=== PATIENT | female | born 1945 | race Caucasian/White ===

== ENCOUNTER → 2018-01-08 08:03 | Outpatient (CLI) | payer MEDICARE, SELFPAY ==
[2018-01-08 10:53] LABS: Hematocrit 40.5 % (37-47); Hemoglobin 13.1 g/dl (12.0-15.0); Mean Corp Hgb Conc 32.3 g/gl (32-36); Mean Corpuscular Hgb 28.1 pg (27.0-32.0); Mean Corpuscular Volume 86.9 fL (81-99); Mean Platelet Vol. 11.4 fl (6.2-12.0); Platelet Count 264 K/mm3 (150-450); RBC Distribution Width CV 13.6 % (11.6-14.6); RBC Distribution Width SD 43.3 fl (35.1-43.9); Red Blood Count 4.66 M/mm3 (4.2-5.4); White Blood Count 6.2 K/mm3 (4.4-11.0)
[2018-01-08 10:55] LABS: Scan Indicated on CBC? Y/N NO
[2018-01-08 11:08] LABS: Vitamin D,25 Hydroxy 23.1 ng/mL (29.95-100.01)
[2018-01-08 11:09] LABS: AST(SGOT) 21 U/L (15-37); Alanine Aminotransfer ALT/SGPT 25 U/L (13-56); Albumin, Serum 3.6 g/dL (3.2-5.0); Alkaline Phosphatase 83 U/L (45-117); Anion Gap 8 (5-15); BUN 18 mg/dL (7-18); BUN/Creat Ratio 21.3 RATIO (10-20); Calcium,Total 8.8 mg/dL (8.5-10.1); Chloride 101 mmol/L (98-107); Cholesterol 270 mg/dL (200); Creatinine, Serum 0.85 mg/dL (0.55-1.02); EST Glomerular Filtration Rate 70 mL/min (>60); Est Glom Filt Rate - Afr Amer 85 mL/min (>60); Free T3 2.8 pg/mL (2.18-3.98); Globulin 3.7 g/dL (2.2-4.2); Glucose 90 mg/dL (74-106); High Density Lipoprotein 51 mg/dL; Potassium 4.5 mmol/L (3.5-5.1); Protein, Total 7.3 g/dL (6.4-8.2); Sodium Level 136 mmol/L (136-145); T4 Free Direct 1.39 ng/dL (0.76-1.46); Thyroid Stim Hormone (TSH) 1.22 uIU/mL (0.358-3.74); Triglycerides 143 mg/dL; Very Low Density Lipoprotein 29 mg/dL (5-40)
== END ==
PROVIDERS: Family Provider Family Medicine; PCP Family Medicine; Visit Provider Family Medicine
DX: I10 Essential (primary) hypertension (principal); I42.2 Other hypertrophic cardiomyopathy; E03.9 Hypothyroidism, unspecified; E55.9 Vitamin D deficiency, unspecified
CPT/HCPCS: 36415; 80053; 80061; 82306; 84439; 84443; 84481; 85027

== ENCOUNTER → 2018-07-20 08:47 | Outpatient (CLI) | payer MEDICARE, SELFPAY ==
--- NOTE | 2018-07-20 08:51 | BD_ITS ---
STUDY: DUAL ENERGY X-RAY ABSORPTIOMETRY / DXA REASON FOR EXAM: Female, 73 years old. The patient is postmenopausal. Loss of height. TECHNIQUE: Bone Mineral Density (BMD) measurements of lumbar spine and bilateral hips were obtained. COMPARISON: Comparison is made with prior study dated May 28, 2016. FINDINGS: Lumbar Spine (L1-L4): g/cm2 (1.093) / T-score (-0.6) / Z-score (1.1) Findings are suggestive of normal bone density with a low fracture risk. Left Femur Total: g/cm2 (0.894) / T-score (-0.9) / Z-score (0.8) Left Femoral Neck: g/cm2 (0.829) / T-score (-1.5) / Z-score (0.4) Right Femur Total: g/cm2 (0.862) / T-score (-1.2) / Z-score (0.5) Right Femoral Neck: g/cm2 (0.827) / T-score (-1.5) / Z-score (0.4) The T-Scores on the most recent prior examination were: Lumbar Spine (L1-L4): There has been worsening of bone density since the previous examination. Left Femur Total: which represents a worsening of 4.7%. Right Femur Total: which represents a worsening of 5.5%. BD/Dexa Bone Density Study IMPRESSION: The patient is considered osteopenic as outlined below according to World Erik Organization (WHO) criteria with a moderate fracture risk. There has been worsening of bone density since the previous examination. Reference Information: The T-score is the number of standard deviations above or below the standard which is normal for young adults at their peak bone mineral density. The World Health Organization (WHO) interprets the T-scores as follows: Above -1 Normal bone density Between -1 and -2.5 Osteopenia Equal to / or below -2.5 Osteoporosis As a practical clinical guideline, osteopenia may be graded as follows: Mild -1 through -1.5 Moderate -1.6 through -2.0 Severe -2.1 through -2.4 The Z-score is the number of standard deviations above or below age-matched controls. A Z-score of less than -1.5 would be considered abnormal. References: 1. NIH Osteoporosis and Related Bone Diseases http://www.osteo.org 2. International Society for Clinical Densitometry http://www.iscd.org 3. National Osteoporosis Foundation http://www.nof.org Electronically Signed: Klaus Stovall, at 15:36 EDT , Service support ,
== END ==
PROVIDERS: Family Provider Family Medicine; PCP Family Medicine; Referring Provider Nurse Practitioner; Visit Provider Nurse Practitioner
DX: Z78.0 Asymptomatic menopausal state (principal); M85.80 Other specified disorders of bone density and structure, unspecified site
CPT/HCPCS: 77080

== ENCOUNTER → 2018-08-05 09:51 | Outpatient (CLI) | payer MEDICARE, SELFPAY ==
[2018-08-05 12:05] LABS: Absolute Lymphocyte Count 2.49 X10^3/ul (0.83-4.51); Absolute Neutrophil Count 3.2 X10^3/uL (2.0-7.7); Basophil# 0.04 X10^3/uL; Basophil% 0.6 % (0-1); Eosinophil# 0.15 X10^3/uL; Eosinophils% 2.4 % (0-5); Hematocrit 39.4 % (37-47); Lymphocyte # 2.49 X10^3/ul (4.0); Lymphocyte % 39.2 % (19-41); Mean Corpuscular Hgb 28.1 pg (27.0-32.0); Mean Corpuscular Volume 85.1 fL (81-99); Mean Platelet Vol. 10.7 fl (6.2-12.0); Monocyte# 0.47 X10^3/uL; Monocyte% 7.4 % (0-10); Neutrophil # 3.19 X10^3/uL (2.7-7.7); Neutrophil % 50.1 % (47-70); Platelet Count 298 K/mm3 (150-450); RBC Distribution Width CV 13.8 % (11.6-14.6); RBC Distribution Width SD 42.9 fl (35.1-43.9); Red Blood Count 4.63 M/mm3 (4.2-5.4); White Blood Count 6.4 K/mm3 (4.4-11.0)
[2018-08-05 12:07] LABS: POSITIVE COUNT NO; POSITIVE DIFFERENTIAL NO; POSITIVE MORPHOLOGY NO
[2018-08-05 12:43] LABS: PTHIN 31.4 pg/mL (18.4-80.1); Vitamin B12 787 pg/mL (211-911); Vitamin D,25 Hydroxy 33.2 ng/mL (29.95-100.01)
[2018-08-05 12:56] LABS: Anion Gap 7 (5-15); BUN 17 mg/dL (7-18); BUN/Creat Ratio 18.2 RATIO (10-20); Calcium,Total 8.9 mg/dL (8.5-10.1); Chloride 101 mmol/L (98-107); Creatinine, Serum 0.93 mg/dL (0.55-1.02); EST Glomerular Filtration Rate 62 mL/min (>60); Est Glom Filt Rate - Afr Amer 75 mL/min (>60); Free T3 2.7 pg/mL (2.18-3.98); Glucose 83 mg/dL (74-106); Iron 101 ug/dL (50-170); Magnesium 2.3 mg/dL (1.6-2.6); Potassium 4.3 mmol/L (3.5-5.1); Sodium Level 135 mmol/L (136-145); T4 Free Direct 1.47 ng/dL (0.76-1.46); Thyroid Stim Hormone (TSH) 1.26 uIU/mL (0.358-3.74)
== END ==
PROVIDERS: Family Provider Family Medicine; PCP Family Medicine; Referring Provider Family Medicine; Visit Provider Family Medicine
DX: E03.9 Hypothyroidism, unspecified (principal); M85.80 Other specified disorders of bone density and structure, unspecified site; L60.3 Nail dystrophy
CPT/HCPCS: 36415; 80048; 82306; 82330; 82607; 83540; 83735; 83970; 84100; 84439; 84443; 84481; 85025

== ENCOUNTER → 2019-03-31 08:06 | Outpatient (CLI) | payer MEDICARE, SELFPAY ==
[2019-03-31 10:01] LABS: Absolute Lymphocyte Count 3.28 X10^3/uL (0.83-4.51); Absolute Neutrophil Count 3.8 X10^3/uL (2.0-7.7); Basophil# 0.05 X10^3/uL; Basophil% 0.6 % (0-1); Eosinophil# 0.12 X10^3/uL; Eosinophils% 1.5 % (0-5); Hemoglobin 12.5 g/dL (12.0-15.0); Lymphocyte # 3.28 X10^3/ul (4.0); Lymphocyte % 41.7 % (19-41); Mean Corp Hgb Conc 32.1 g/dL (32-36); Mean Corpuscular Hgb 27.8 pg (27.0-32.0); Mean Corpuscular Volume 86.9 fL (81-99); Mean Platelet Vol. 10.8 fl (6.2-12.0); Monocyte% 7.6 % (0-10); NRBC Flagged by Analyzer 0 % (0-5); Neutrophil # 3.76 X10^3/uL (2.7-7.7); Platelet Count 326 K/mm3 (150-450); RBC Distribution Width CV 12.9 % (11.6-14.6); RBC Distribution Width SD 40.7 fl (35.1-43.9); Red Blood Count 4.49 M/mm3 (4.2-5.4); White Blood Count 7.9 K/mm3 (4.4-11.0)
[2019-03-31 10:23] LABS: Vitamin D,25 Hydroxy 33.8 ng/mL (29.95-100.01)
[2019-03-31 10:27] LABS: Anion Gap 5 (5-15); BUN 17 mg/dL (7-18); BUN/Creat Ratio 16.8 RATIO (10-20); Calcium,Total 9.1 mg/dL (8.5-10.1); Chloride 102 mmol/L (98-107); Cholesterol 204 mg/dL (200); Creatinine, Serum 1.01 mg/dL (0.55-1.02); EST Glomerular Filtration Rate 57 mL/min (>60); Est Glom Filt Rate - Afr Amer 69 mL/min (>60); Glucose 89 mg/dL (74-106); High Density Lipoprotein 46 mg/dL; Potassium 4.4 mmol/L (3.5-5.1); Sodium Level 134 mmol/L (136-145); T4 Free Direct 1.28 ng/dL (0.76-1.46); Thyroid Stim Hormone (TSH) 2.25 uIU/mL (0.358-3.74); Triglycerides 142 mg/dL; Very Low Density Lipoprotein 28 mg/dL (5-40)
== END ==
PROVIDERS: Family Provider Family Medicine; PCP Family Medicine; Referring Provider Family Medicine; Visit Provider Family Medicine
DX: C50.911 Malignant neoplasm of unspecified site of right female breast (principal); I10 Essential (primary) hypertension; E03.9 Hypothyroidism, unspecified; E55.9 Vitamin D deficiency, unspecified
CPT/HCPCS: 36415; 80048; 80061; 82306; 84439; 84443; 85025

== ENCOUNTER → 2020-03-30 07:57 | Outpatient (CLI) | payer MEDICARE, SELFPAY ==
[2020-03-30 10:05] LABS: Hematocrit 40.4 % (37-47); Hemoglobin 12.7 g/dL (12.0-15.0); Mean Corp Hgb Conc 31.4 g/dL (32-36); Mean Corpuscular Hgb 27.9 pg (27.0-32.0); Mean Corpuscular Volume 88.6 fL (81-99); Mean Platelet Vol. 11.4 fl (6.2-12.0); Platelet Count 264 K/mm3 (150-450); RBC Distribution Width CV 13.2 % (11.6-14.6); RBC Distribution Width SD 43.2 fl (35.1-43.9); Red Blood Count 4.56 M/mm3 (4.2-5.4)
[2020-03-30 10:35] LABS: Anion Gap 3 (5-15); BUN 15 mg/dL (7-18); BUN/Creat Ratio 15.8 RATIO (10-20); Calcium,Total 8.7 mg/dL (8.5-10.1); Chloride 106 mmol/L (98-107); Cholesterol 210 mg/dL (200); Creatinine, Serum 0.95 mg/dL (0.55-1.02); EST Glomerular Filtration Rate 61 mL/min (>60); Est Glom Filt Rate - Afr Amer 74 mL/min (>60); Glucose 86 mg/dL (74-106); High Density Lipoprotein 49 mg/dL; Potassium 4.6 mmol/L (3.5-5.1); Sodium Level 138 mmol/L (136-145); T4 Free Direct 1.26 ng/dL (0.76-1.46); Thyroid Stim Hormone (TSH) 1.76 uIU/mL (0.358-3.74); Triglycerides 153 mg/dL; Very Low Density Lipoprotein 31 mg/dL (5-40)
== END ==
PROVIDERS: PCP Family Medicine; Referring Provider Family Medicine; Visit Provider Family Medicine
DX: C50.911 Malignant neoplasm of unspecified site of right female breast (principal); I10 Essential (primary) hypertension; E03.9 Hypothyroidism, unspecified; E55.9 Vitamin D deficiency, unspecified
CPT/HCPCS: 36415; 80048; 80061; 82306; 84439; 84443; 85027

== ENCOUNTER → 2021-01-04 09:26 | Outpatient (CLI) | payer MEDICARE, SELFPAY ==
[2021-01-04 12:19] LABS: Vitamin D,25 Hydroxy 29.4 ng/mL
== END ==
PROVIDERS: PCP Family Medicine; Referring Provider Family Medicine; Visit Provider Family Medicine
DX: E55.9 Vitamin D deficiency, unspecified (principal)
CPT/HCPCS: 36415; 82306

== ENCOUNTER → 2021-01-24 12:21 | Outpatient (CLI) | payer MEDICARE, SELFPAY ==
--- NOTE | 2021-01-24 12:28 | BD_ITS ---
STUDY: DUAL ENERGY X-RAY ABSORPTIOMETRY / DXA REASON FOR EXAM: Female, 75 years old. [id number]. Patient is postmenopausal. TECHNIQUE: Bone Mineral Density (BMD) measurements of lumbar spine and bilateral hips were obtained. COMPARISON: Comparison is made with prior study dated 07/20/2018. FINDINGS: Lumbar Spine (L1-L4): g/cm2 (0.993) / T-score (-0.5) / Z-score (2.0) Findings are suggestive of normal bone density with a low fracture risk. Left Femur Total: g/cm2 (0.818) / T-score (-1.0) / Z-score (0.9) Left Femoral Neck: g/cm2 (0.678) / T-score (-1.5) / Z-score (0.6) Right Femur Total: g/cm2 (0.73) / T-score (-1.3) / Z-score (0.6) Right Femoral Neck: g/cm2 (0.663) / T-score (-1.7) / Z-score (0.5) The T-Scores on the most recent prior examination were: Lumbar Spine (L1-L4): There has been worsening of bone density since the previous examination. Left Femur Total: which represents a worsening of 1.5%. Right Femur Total: which represents a worsening of 2.1%. BD/Dexa Bone Density Study IMPRESSION: The patient is considered osteopenic as outlined below according to World Erik Organization (WHO) criteria with a moderate fracture risk. There has been worsening of bone density since the previous examination. Reference Information: The T-score is the number of standard deviations above or below the standard which is normal for young adults at their peak bone mineral density. The World Health Organization (WHO) interprets the T-scores as follows: Above -1 Normal bone density Between -1 and -2.5 Osteopenia Equal to / or below -2.5 Osteoporosis As a practical clinical guideline, osteopenia may be graded as follows: Mild -1 through -1.5 Moderate -1.6 through -2.0 Severe -2.1 through -2.4 The Z-score is the number of standard deviations above or below age-matched controls. A Z-score of less than -1.5 would be considered abnormal. References: 1. NIH Osteoporosis and Related Bone Diseases www osteo.org 2. International Society for Clinical Densitometry www iscd.org 3. National Osteoporosis Foundation www nof.org Electronically Signed: Klaus Stovall MD at 14:04 EDT , Service support ,
== END ==
PROVIDERS: PCP Family Medicine; Visit Provider Nurse Practitioner
DX: Z78.0 Asymptomatic menopausal state (principal); M85.80 Other specified disorders of bone density and structure, unspecified site; C50.412 Malignant neoplasm of upper-outer quadrant of left female breast; Z17.0 Estrogen receptor positive status [ER+]; Z79.811 Long term (current) use of aromatase inhibitors
CPT/HCPCS: 77080

== ENCOUNTER → 2022-04-10 | Outpatient (CLI) | payer MEDICARE, SELFPAY ==
[2022-04-10 10:53] LABS: ALB/GLOB Ratio 1.3 RATIO (0.9-2.4); AST(SGOT) 23 U/L (15-37); Alanine Aminotransfer ALT/SGPT 34 U/L (13-56); Albumin, Serum 3.8 g/dL (3.2-5.0); Alkaline Phosphatase 67 U/L (45-117); Anion Gap 5 (5-15); BUN 17 mg/dL (7-18); BUN/Creat Ratio 18.9 RATIO (10-20); Calcium,Total 9.1 mg/dL (8.5-10.1); Chloride 102 mmol/L (98-107); Cholesterol 296 mg/dL (200); EST Glomerular Filtration Rate 65 mL/min (>60); Est Glom Filt Rate - Afr Amer 78 mL/min (>60); Glucose 86 mg/dL (74-106); High Density Lipoprotein 57 mg/dL; Potassium 4.9 mmol/L (3.5-5.1); Protein, Total 6.8 g/dL (6.4-8.2); Sodium Level 135 mmol/L (136-145); T4 Free Direct 1.23 ng/dL (0.76-1.46); Thyroid Stim Hormone (TSH) 1.43 uIU/mL (0.358-3.74); Triglycerides 160 mg/dL; Very Low Density Lipoprotein 32 mg/dL (5-40)
== END | disposition home or self-care (01) ==
LOC: MFPLAB 08:06
PROVIDERS: PCP Family Medicine; Visit Provider Family Medicine
DX: I10 Essential (primary) hypertension (principal); E03.9 Hypothyroidism, unspecified
CPT/HCPCS: 36415; 80053; 80061; 84439; 84443

== ENCOUNTER → 2023-01-27 | Outpatient (CLI) | payer MEDICARE, SELFPAY ==
--- NOTE | 2023-01-27 12:58 | BD_ITS ---
STUDY: DUAL ENERGY X-RAY ABSORPTIOMETRY / DXA REASON FOR EXAM: Female, 77 years old. M85.89 TECHNIQUE: Bone Mineral Density (BMD) measurements of lumbar spine and bilateral hips were obtained. COMPARISON: Comparison is made with prior study dated January 24, 2021. FINDINGS: Lumbar Spine (L1-L4): g/cm2 (1.013) / T-score (-0.3) / Z-score (2.3) Findings are suggestive of normal bone density with a low fracture risk. Left Femur Total: g/cm2 (0.850) / T-score (-0.8) / Z-score (1.2) Left Femoral Neck: g/cm2 (0.692) / T-score (-1.4) / Z-score (0.8) Right Femur Total: g/cm2 (0.830) / T-score (-0.9) / Z-score (1.1) Right Femoral Neck: g/cm2 (0.697) / T-score (-1.4) / Z-score (0.9) The T-Scores on the most recent prior examination were: Lumbar Spine (L1-L4): There has been improvement of bone density since the previous examination. Left Femur Total: which represents an improvement of 4%. Right Femur Total: which represents an improvement of 6.1%. BD/Dexa Bone Density Study IMPRESSION: The patient is considered osteopenic as outlined below according to World Erik Organization (WHO) criteria with a low fracture risk. There has been improvement of bone density since the previous examination. Reference Information: The T-score is the number of standard deviations above or below the standard which is normal for young adults at their peak bone mineral density. The World Health Organization (WHO) interprets the T-scores as follows: Above -1 Normal bone density Between -1 and -2.5 Osteopenia Equal to / or below -2.5 Osteoporosis As a practical clinical guideline, osteopenia may be graded as follows: Mild -1 through -1.5 Moderate -1.6 through -2.0 Severe -2.1 through -2.4 The Z-score is the number of standard deviations above or below age-matched controls. A Z-score of less than -1.5 would be considered abnormal. References: 1. NIH Osteoporosis and Related Bone Diseases www osteo.org 2. International Society for Clinical Densitometry www iscd.org 3. National Osteoporosis Foundation www nof.org Electronically Signed: Klaus Stovall MD at 12:57 EST ,
== END | disposition home or self-care (01) ==
LOC: OPBD 12:53
PROVIDERS: PCP Family Medicine; Referring Provider Family Medicine; Visit Provider Family Medicine
DX: M85.89 Other specified disorders of bone density and structure, multiple sites (principal)
CPT/HCPCS: 77080

== ENCOUNTER → 2023-04-15 | Outpatient (CLI) | payer MEDICARE, SELFPAY ==
--- OUTSIDE RECORDS SUMMARY | 2023-04-15 08:20 | XMS RPT_ITS | CCD ---
Author Name Unknown Address [address] [place] [address] Organization [facility] Care Team Providers Care Rayon Coner Name Role Phone Mike Reynolds MD Primary Care Provider Manfred RN, Michelle Unavailable Unavailable Christian Coon MD Unavailable Mike Reynolds MD Primary Care Provider Manfred RN, Michelle Unavailable Unavailable Christian Coon MD Unavailable [phone] Self Unavailable Unavailable REDD COONIND Y Referring Unavailable MIKE REYNOLDS Primary Care Unavailabl ANDREA Argueta Attending Unavailable ANDREA SALAS Referring Unavailable MIKE REYNOLDS Primary Care UnavailANDREA Sim Referring Unavailable MIKE REYNOLDS Primary Care Unavailabl e EDU VALDOVINOS Referring Unavailable MIKE REYNOLDS Primary Care Unavailabl EDU Luevano Attending Unavailable MIKE REYNOLDS Primary Care Unavailabl e REDD COONIND Y Attending Unavailable REDD COONIND Y Referring Unavailable MIKE REYNOLDS Primary Care Unavailabl REDD SellersIND Y Referring Unavailable MIKE REYNOLDS Primary Care Unavailabl e Allergies Allergy Classification Reported Allergen(s) Allergy Type Date of Onset Reaction(s) Facility (17 sources) anastrozole; Translations: [ANASTROZOLE] Drug Allergy 8 Other: See Comments [facility] Work Phone: (17 sources) Azithromycin; Translations: [AZITHROMYCIN] Drug Allergy 6 Intolerance [facility] (17 sources) Bacitracin / Polymyxin B; Translations: [BACITRACIN-POLY MYXIN B] Drug Allergy 8 Rash [facility] (7 sources) HMG-CoA reductase inhibitor; Translations: [IQSCLYE-DHR-IYS REDUCTASE INHIBITORS] Drug Intolerance 7 Other: See Comments [facility] (17 sources) nickel; Translations: [NICKEL] Drug Allergy 0 Intolerance [facility] (7 sources) Penicillins; Translations: [PENICILLINS] Drug Allergy 6 Hives [facility] (17 sources) Pravastatin; Translations: [PRAVASTATIN] Drug Allergy 7 Other: See Comments [facility] (17 sources) Sulfonamides (Antibiotic); Translations: [SULFA (SULFONAMIDE ANTIBIOTICS)] Drug Intolerance 6 GI Upset [facility] (10 sources) HMG-CoA reductase inhibitor Drug Intolerance 7 Other: See Comments [facility] (10 sources) Penicillins Drug Allergy 6 [facility] Medications Current Medications Medication Drug Class(es) Dates Sig (Normalized) Sig (Original) perflutren lipid microspheres 1.3 mL in NaCl (PF) 0.9% 10 mL injection (DEFINITY) (20 sources) Start: 06-09-2022 End: 09-08-2023 perflutren lipid microspheres 1.3 mL in NaCl (PF) 0.9% 10 mL injection (DEFINITY) Completed/Discontinued Medications Medication Drug Class(es) Dates Sig (Normalized) Sig (Original) acyclovir 400 mg oral tablet (13 sources) Herpesvirus Nucleoside Analog DNA Polymerase Inhibitor, Herpes Simplex Virus Nucleoside Analog DNA Polymerase Inhibitor, Herpes Zoster Virus Nucleoside Analog DNA Polymerase Inhibitor Start: 07-23-2016 End: 11-28-2022 take 1 tablet by mouth every twelve hours as needed acyclovir (ZOVIRAX) 400 mg tablet Take 400 mg by mouth twice daily as needed. 0 07/23/2016 11/28/2022 Discontinued (Course of therapy completed) Problems Active Problems Problem Classification Problem Date Documented Date Episodic/Chronic Cancer of breast (20 sources) Malignant neoplasm of upper-outer quadrant of female breast; Translations: [Malignant neoplasm of upper-outer quadrant of left female breast] Onset: 07-01-2016 07-01-2016 Chronic Cancer of breast (2 sources) History of malignant neoplasm of breast; Translations: [Personal history of malignant neoplasm of breast] Episodic Other inflammatory condition of skin (16 sources) Rosacea; Translations: [Rosacea, unspecified] Onset: 12-03-2012 12-03-2012 Chronic Other screening for suspected conditions (not mental disorders or infectious disease) (20 sources) Patient encounter status; Translations: [Encounter for screening for malignant neoplasm of colon] Onset: 03-26-2009 03-26-2009 Episodic Urmila-; endo-; and myocarditis; cardiomyopathy (except that caused by tuberculosis or sexually transmitted disease) (20 sources) Hypertrophic obstructive cardiomyopathy; Translations: [Obstructive hypertrophic cardiomyopathy] Onset: 07-10-2016 07-10-2016 Chronic Residual codes; unclassified (1 source) Breast implant status; Translations: [Breast implant status] Onset: 01-06-2023 Chronic Residual codes; unclassified (1 source) Breast finding ; Translations: [Breast implant status] 01-06-2023 Chronic Residual codes; unclassified (2 sources) History of breast reconstruction; Translations: [Other specified postprocedural states] Episodic Residual codes; unclassified (1 source) Other specified postprocedural states; Translations: [Hx of breast reconstruction] Onset: 01-06-2023 Episodic Residual codes; unclassified (1 source) Acquired absence of left breast and nipple; Translations: [History of mastectomy, left] Onset: 01-06-2023 Episodic Residual codes; unclassified (1 source) History of left mastectomy; Translations: [Acquired absence of left breast and nipple] 01-06-2023 Episodic Thyroid disorders (16 sources) Hypothyroidism; Translations: [Hypothyroidism, unspecified] Onset: 08-19-2018 08-19-2018 Chronic Past or Other Problems Problem Classification Problem Date Documented Da te Episodic/Chronic Allergic reactions (16 sources) Solar degeneration; Translations: [Other skin changes due to chronic exposure to nonionizing radiation] Onset: 12-03-2012 12-03-2012 Episodic Other and unspecified benign neoplasm (20 sources) Melanocytic nevus of lower limb; Translations: [Melanocytic nevi of unspecified lower limb, including hip] Onset: 10-19-2010 10-19-2010 Episodic Other and unspecified benign neoplasm (20 sources) Melanocytic nevus of trunk; Translations: [Melanocytic nevi of trunk] Onset: 10-19-2010 10-19-2010 Episodic Other and unspecified benign neoplasm (16 sources) Senile angioma; Translations: [Hemangioma of skin and subcutaneous tissue] Onset: 10-19-2010 10-19-2010 Episodic Other and unspecified benign neoplasm (16 sources) Melanocytic nevus of face; Translations: [Melanocytic nevi of unspecified part of face] Onset: 12-03-2012 12-03-2012 Episodic Other and unspecified benign neoplasm (16 sources) Melanocytic nevus of neck; Translations: [Melanocytic nevi of scalp and neck] Onset: 12-03-2012 12-03-2012 Episodic Other bone disease and musculoskeletal deformities (16 sources) Osteopenia; Translations: [Other specified disorders of bone density and structure, unspecified site] Onset: 08-19-2018 08-19-2018 Episodic Other skin disorders (16 sources) Actinic keratosis; Translations: [Actinic keratosis] Onset: 06-23-2007 11-20-2009 Episodic Other skin disorders (16 sources) Milia; Translations: [Epidermal cyst] Onset: 11-20-2009 11-20-2009 Episodic Other skin disorders (16 sources) Epidermoid cyst of skin; Translations: [Epidermal cyst] Onset: 05-16-2010 05-16-2010 Episodic Other skin disorders (16 sources) Scar conditions and fibrosis of skin; Translations: [Scar conditions and fibrosis of skin] Onset: 05-16-2010 05-16-2010 Episodic Other skin disorders (16 sources) Solar lentigo; Translations: [Other melanin hyperpigmentation] Onset: 12-03-2012 12-03-2012 Episodic Other skin disorders (16 sources) Seborrheic keratosis; Translations: [Other seborrheic keratosis] Onset: 12-03-2012 11-02-2013 Episodic Residual codes; unclassified (1 source) Estrogen receptor positive status [ER+]; Translations: [Malignant neoplasm of upper-outer quadrant of left breast in female, estrogen receptor positive (HCC)] Onset: 11-13-2016 Episodic Superficial injury; contusion (16 sources) Superficial injury of lower limb; Translations: [Superficial foreign body, unspecified lower leg, initial encounter] Onset: 05-16-2010 05-16-2010 Episodic Viral infection (16 sources) Herpes simplex; Translations: [Herpesviral infection, unspecified] Onset: 07-15-2016 07-15-2016 Episodic Results Test Name Value Interpretation Reference Range Facil ity Vital Signs Date Time Vital Sign Value Performing Clinician Eduardo lewis 08-25-2022 13:24-0400 Body height 152.4 cm Andrea Salas [employer].DR[employer] TEACHER Work Phone: [facility] 08-25-2022 13:24-0400 Body temperature 97.11 [degF] Bethany Salas [employer].DR[employer] TEACHER Work Phone: [facility] 08-25-2022 13:24-0400 Body weight 62.6 kg Bethany Salas [employer].DR[employer] TEACHER Work Phone: [facility] 08-25-2022 13:24-0400 Diastolic blood pressure 100 mm[Hg] Andrea Salas [employer] B[employer]ER.DRAMA TEACHER Work Phone: [facility] 08-25-2022 13:24-0400 Heart rate 90 /min Bethany Salas [employer].DRAMA TEACHER Work Phone: [facility] 08-25-2022 13:24-0400 SaO2% (BldA) [Mass fraction] 96 % Bethany Salas [employer].DRAMA TEACHER Work Phone: [facility] 08-25-2022 13:24-0400 Systolic blood pressure 141 mm[Hg] Bethany Salas K[employer] B[employer]ER.DRAMA TEACHER Work Phone: [facility] 12-12-2021 11:14-0400 Body height 151 cm Andrea Salas K[employer] B[employer]ER.DRAMA TEACHER Work Phone: [facility] 12-12-2021 11:14-0400 Body temperature 97 [degF] Bethany Salas K[employer] B[employer]ER.DRAMA TEACHER Work Phone: [facility] 12-12-2021 11:14-0400 Body weight 62.14 kg Andrea Salas K[employer] B[employer]ER.DRAMA TEACHER Work Phone: [facility] 12-12-2021 11:14-0400 Diastolic blood pressure 92 mm[Hg] Andrea Salas K[employer] B[employer]ER.DRAMA TEACHER Work Phone: [facility] 12-12-2021 11:14-0400 Heart rate 62 /min Bethany Salas K[employer] B[employer]ER.DRAMA TEACHER Work Phone: [facility] 12-12-2021 11:14-0400 Systolic blood pressure 140 mm[Hg] Andrea Salas K[employer] B[employer]ER.DRAMA TEACHER Work Phone: [facility] 11-04-2021 15:58-0400 Body height 152.4 cm Christian Coon MD Work Phone: [facility] 11-04-2021 15:58-0400 Body weight 58.79 kg Christian Coon MD Work Phone: [facility] 11-04-2021 15:58-0400 Diastolic blood pressure 80 mm[Hg] Christian Coon MD Work Phone: [facility] 11-04-2021 15:58-0400 Heart rate 61 /min Christian Coon MD Work Phone: [facility] 11-04-2021 15:58-0400 SaO2% (BldA) [Mass fraction] 97 % Christian Coon MD Work Phone: [facility] 11-04-2021 15:58-0400 Systolic blood pressure 168 mm[Hg] Christian Coon MD Work Phone: [facility] 06-13-2021 14:29-0400 Diastolic blood pressure 90 mm[Hg] Andrea Salas K[employer] B[employer]ER.DRAMA TEACHER Work Phone: [facility] 06-13-2021 14:29-0400 Systolic blood pressure 188 mm[Hg] Andrea Salas K[employer] B[employer]ER.DRAMA TEACHER Work Phone: [facility] 06-13-2021 13:46-0400 Body height 151.5 cm Bethany Salas K[employer] B[employer]ER.DRAMA TEACHER Work Phone: [facility] 06-13-2021 13:46-0400 Body temperature 99.39 [degF] Andrea Salas K[employer] B[employer]ER.DRAMA TEACHER Work Phone: [facility] 06-13-2021 13:46-0400 Body weight 62.14 kg Bethany Salas K[employer] B[employer]ER.DRAMA TEACHER Work Phone: [facility] 06-13-2021 13:46-0400 Heart rate 69 /min Andrea Salas K[employer] B[employer]ER.DRAMA TEACHER Work Phone: [facility] 06-13-2021 13:46-0400 SaO2% (BldA) [Mass fraction] 100 % Andrea Salas APRN.DRAMA TEACHER Work Phone: [facility] Encounters Encounter Date Encounter Type Care Provider Facility Start: 01-06-2023 End: 01-06-2023 ambulatory EDU VALDOVINOS [facility] Start: 01-06-2023 End: 01-06-2023 Subsequent hospital visit by physician [facility] Work Phone: Radiology Procedures Date Procedure Procedure Detail Performing Clinician Start: 01-06-2023 Us breast uni real t juan with image limited Edu Valdovinos MD Work Phone: Start: 08-21-2022 Screening digital br east tomosynthesis bi Andrea Salas K[employer].DRAMA TEACHER Work Phone: Start: 11-04-2021 Echo tthrc r-t 2d w/wom-mode compl spec&colr d Christian Coon MD Work Phone: Start: 08-15-2021 FRENCH SCREENING W VASHTI Da emani Salas [employer].DRAMA TEACHER Work Phone: Start: 06-25-2021 Colonoscopy Christian turner MD Work Phone: Start: 12-13-2020 Adult depression scr eening assessment Abdelrahman Pizano MD Work Phone: Plan of Treatment Date Care Activity Detail Author Start: 06-26-2031 Colonoscopy COLONOSCOPY [facility] Start: 06-26-2031 COLORECTAL CANCER SCREENING COLORECTAL CANCER SCREENING [facility] Start: 04-15-2031 Urine microalbumin profile [facility] Start: 11-21-2022 Covid-19 Vaccine ( season) Covid-19 Vaccine ( season) [facility] Start: 11-21-2022 Influenza vaccination Influenza Vaccine (#1) [facility] Start: 05-17-2022 Covid-19 Vaccine (6 - Moderna series) Covid-19 Vaccine (6 - Moderna series) [facility] Start: 03-23-2022 ADVANCE DIRECTIVE DISCUSSION ADVANCE DIRECTIVE DISCUSSION [facility] Start: 03-23-2022 DEPRESSION ASSESSMENT DEPRESSION ASSESSMENT [facility] Start: 12-13-2021 Adult depression screening assessment DEPRESSION SCREENING [facility] Start: 11-21-2021 Influenza vaccination INFLUENZA (#1) [facility] Start: 03-23-2021 ADVANCE DIRECTIVE DISCUSSION ADVANCE DIRECTIVE DISCUSSION [facility] Start: 03-08-2021 COVID-19 VACCINE (5 - Booster for Moderna series) COVID-19 VACCINE (5 - Booster for Moderna series) [facility] Start: 11-21-2020 Influenza vaccination INFLUENZA (#1) [facility] Start: 10-14-2020 COVID-19 VACCINE (3 - Booster for Moderna series) COVID-19 VACCINE (3 - Booster for Moderna series) [facility] Start: 07-18-2019 DIABETES SCREEN DIABETES SCREEN [facility] Start: 07-18-2019 Diabetes Screening Diabetes Screening [facility] Start: 03-08-2016 PNEUMOCOCCAL: 65+ (3 - PPSV23 or PCV20) PNEUMOCOCCAL: 65+ (3 - PPSV23 or PCV20) [facility] Start: 08-27-2010 SHINGRIX VACCINE (2 of 3) SHINGRIX VACCINE (2 of 3) [facility] Start: 02-07-2009 BONE DENSITY BONE DENSITY [facility] Start: 02-07-2009 Bone Density Screening Bone Density Screening [facility] Start: 2004 RSV Vaccine (1 - 1-dose 60+ series) RSV Vaccine (1 - 1-dose 60+ series) [facility] Start: 02-07-1989 COLOGUARD (FIT-DNA) COLOGUARD (FIT-DNA) [facility] Start: 02-07-[address] COLONOGRAPHY [facility] Start: 02-07-1989 FECAL OCCULT BLOOD FECAL OCCULT BLOOD [facility] Start: 02-07-1989 SIGMOIDOSCOPY SIGMOIDOSCOPY [facility] Start: 02-07-1963 Urine microalbumin profile DTAP,TDAP,TD (1 - Tdap) [facility] Start: 02-07-1962 ANNUAL PCP TEAM CHRONIC DISEASE VISIT ANNUAL PCP TEAM CHRONIC DISEASE VISIT [facility] Start: 02-07-1962 HEPATITIS C SCREENING HEPATITIS C SCREENING [facility] End: 07-10-2022 ECG COMPLETE ECG COMPLETE ECG Routine HOCM (hypertrophic obstructive cardiomyopathy) (HCC) 1 Occurrences starting 07/10/2021 until 07/10/2022 [facility] Work Phone: Immunizations Immunization Date Immunization Notes Care Provider Miguel montoya 12-11-2021 influenza virus vacc ine, unspecified formulation Edu Valdovinos MD Work Phone: [facility] 04-15-2021 tetanus toxoid, redu kaia diphtheria toxoid, and acellular pertussis vaccine, adsorbed Andrea Salas K[employer] B[employer]ER.DRAMA TEACHER Work Phone: [facility] 12-21-2020 COVID-19 vaccine, fu ll dose (MODERNA) Bethany Salas K[employer] B[employer]ER.DRAMA TEACHER Work Phone: [facility] 12-21-2020 influenza, injectabl e, quadrivalent, preservative free Bethany Salas K[employer] B[employer]ER.DRAMA TEACHER Work Phone: [facility] 05-17-2020 COVID-19 vaccine, fu ll dose (MODERNA) Abdelrahman Pizano MD Work Phone: [facility] 04-19-2020 COVID-19 vaccine, fu ll dose (MODERNA) Abdelrahman Pizano MD Work Phone: [facility] 12-16-2019 influenza, injectabl e, quadrivalent, preservative free Bethany Salas K[employer] BORER.DRAMA TEACHER Work Phone: [facility] 04-12-2019 zoster vaccine recombinant Andrea Salas K[employer] B[employer]ER.DRAMA TEACHER Work Phone: [facility] 02-04-2019 zoster vaccine recombinant Bethany Salas K[employer] B[employer]ER.DRAMA TEACHER Work Phone: [facility] 12-20-2018 influenza, seasonal, injectable Bethany Salas K[employer] BORER.DRAMA TEACHER Work Phone: [facility] 12-15-2017 influenza, injectabl e, quadrivalent, contains preservative Bethany Salas K[employer] BORER.DRAMA TEACHER Work Phone: [facility] 12-19-2016 influenza, injectabl e, quadrivalent, contains preservative Andrea Salas K[employer] BORER.DRAMA TEACHER Work Phone: [facility] 01-18-2016 influenza, injectabl e, quadrivalent, contains preservative Bethany Salas K[employer] BORER.DRAMA TEACHER Work Phone: [facility] 03-08-2015 pneumococcal conjuga te vaccine, 13 valent Andrea Salas K[employer] BORER.DRAMA TEACHER Work Phone: [facility] 01-22-2015 influenza, seasonal, injectable Bethany Salas K[employer] BORER.DRAMA TEACHER Work Phone: [facility] 01-24-2014 influenza, seasonal, injectable Bethany Salas KNOT BORER.DRAMA TEACHER Work Phone: [facility] 01-13-2013 influenza, high dose seasonal, preservative-free Bethany Salas KNOT BORER.DRAMA TEACHER Work Phone: [facility] 01-13-2013 influenza, seasonal, injectable Bethany Salas KNOT BORER.DRAMA TEACHER Work Phone: [facility] 12-12-2011 influenza, seasonal, injectable Bethany Salas KNOT BORER.DRAMA TEACHER Work Phone: [facility] 02-20-2011 tetanus toxoid, redu kaia diphtheria toxoid, and acellular pertussis vaccine, adsorbed Andrea Salas KNOT BORER.DRAMA TEACHER Work Phone: [facility] 01-30-2011 influenza, seasonal, injectable Andrea Salas KNOT BORER.DRAMA TEACHER Work Phone: [facility] 07-02-2010 zoster vaccine, live Abdelrahman Pizano MD Work Phone: [facility] 02-19-2010 pneumococcal polysaccharide vaccine, 23 valent Abdelrahman Pizano MD Work Phone: [facility] 01-03-2010 influenza, seasonal, injectable Andrea Salas KNOT BORER.DRAMA TEACHER Work Phone: [facility] 12-15-2008 influenza, seasonal, injectable Bethany Salas KNOT BORER.DRAMA TEACHER Work Phone: [facility] 07-14-2006 tetanus toxoid, redu kaia diphtheria toxoid, and acellular pertussis vaccine, adsorbed Bethany Salas KNOT BORER.DRAMA TEACHER Work Phone: [facility] Payers Date Payer Category Payer Unknown [id number] 2017 Medicare MMO MEDICARE MMO [employer] PPO [id number] 2017-Present [phone] [address] [place] [address] PPO [id number] 2017 Medicare [id number] Social History Date Type Detail Facility Start: 11-28-2022 Tobacco smoking stat us PRIS Never smoked tobacco [facility] Work Phone: Start: 12-13-2020 End: 11-04-2021 Alcohol intake Ex-drinker (finding) [facility] Start: 1945 Sex Assigned At Female [facility] Start: 06-03-2021 End: 11-04-2021 Exposure to SARS-CoV-2 (event) Not sure [facility] History of tobacco use Passive smoker [facility] Start: 11-28-2022 Tobacco use and exposure Smokeless tobacco non-user [facility] Start: 12-10-2022 Alcohol intake Current drinke r of alcohol (finding) [facility] Start: 08-21-2022 End: 12-10-2022 History of Social function [facility] Start: 08-21-2022 End: 12-10-2022 Tobacco use panel [facility] Adult Depression Screening Assessment 0 [facility] Start: 08-12-2018 Gender identity Identifies as female gender (finding) [facility] Start: 12-13-2019 Sexual orientation Heterosexual (henrietta topete) [facility] Medical Equipment Procedure Code Equipment Code Equipment Origin al Text Equipment Identifier Dates Matrix Alloderm Thick Acellular Dermis 16x8cm Tissue Allograft Regenerative - [id number] Start: 07-15-2016 Implant Memoryge l Cohesive I 14.1cm P4.3cm Moderate Plus Profile Round - [id number] Start: 07-15-2016 Clinical Notes 05-16-2010 to 01-06-2023 Angeline Garcia RDMS - 01/06/2023 1:00 PM EDAna Cook - 12/10/2022 4:14 PM EDAna Cook - 12/10/2022 2:34 PM EDTAndrea Salas APRN.[facility] - 08/25/2022 1:26 PM EDT Note Date & Type Note Facility 01-06-2023 Note HNO ID: [id number] Author: Angeline Garcia RDMS Service: ? Author Type: Clip Baker Type: Progress Notes Filed: 01/06/2023 3:18 PM Note Text: Radiology Service Progress Note PATIENT NAME: Symone Pedroza DATE OF SERVICE: January 06, 2023 TIME: 3:17 PM PATIENT IDENTITY VERIFICATION COMPLETED USING TWO (2) IDENTIFIERS: Name and Date of confirmed by patient verbally. FALL SCREENING: Has the patient had 2 falls in the last year or 1 fall with injury or currently using an Ambulatory Assistive Device (Walker, Cane, Wheelchair, Crutches, etc.)? No PATIENT GENDER DATA: Female. status: : No status: NO. PATIENT RELEVANT IMPLANT DATA REVIEWED: Not Applicable RADIOLOGY DEPARTMENT: Ultrasound PERIPHERAL IV DATA: Not applicable SIGNED BY: Angeline Garcia RDMS RVT January 06, 2023 3:17 PM [facility] 01-06-2023 History of Presen t illness Narrative Radiology Service Progress Note PATIENT NAME: Symone Pedroza DATE OF SERVICE: January 06, 2023 TIME: 3:17 PM PATIENT IDENTITY VERIFICATION COMPLETED USING TWO (2) IDENTIFIERS: Name and Date of confirmed by patient verbally. FALL SCREENING: Has the patient had 2 falls in the last year or 1 fall with injury or currently using an Ambulatory Assistive Device (Walker, Cane, Wheelchair, Crutches, etc.)? No PATIENT GENDER DATA: Female. status: : No status: NO. PATIENT RELEVANT IMPLANT DATA REVIEWED: Not Applicable RADIOLOGY DEPARTMENT: Ultrasound PERIPHERAL IV DATA: Not applicable SIGNED BY: Angeline Garcia RDMS RVT January 06, 2023 3:17 PM documented in this encounter [facility] 12-10-2022 Note HNO ID: [id number] Author: Ana Bob Service: ? Author Type: ? Type: Progress Notes Filed: 12/10/2022 4:14 PM Note Text: DATE OF PHOTOS: 12/10/2022 Body Part: Parker Bob December 10, 2022 4:14 PM [facility] 12-10-2022 Note HNO ID: [id number] Author: Ana oBb Service: ? Author Type: ? Type: Progress Notes Filed: 12/10/2022 2:34 PM Note Text: DATE OF PHOTOS: 12/10/2022 Body Part: Parker Bob December 10, 2022 2:34 PM [facility] 12-10-2022 History of Presen t illness Narrative DATE OF PHOTOS: 12/10/2022 Body Part: Parker Bob December 10, 2022 4:14 PM documented in this encounter [facility] 12-10-2022 History of Presen t illness Narrative DATE OF PHOTOS: 12/10/2022 Body Part: Parker Bob December 10, 2022 2:34 PM documented in this encounter [facility] 12-10-2022 Note HNO ID: [id number] Author: Edu Valdovinos MD Service: ? Author Type: Physician Type: Progress Notes Filed: 12/10/2022 2:34 PM Note Text: CC: Follow Up for Breast Reconstruction HPI: Symone Pedroza is a 77 year old that presents today to establish care for breast reconstruction. -She is doing well, no concerns at this time. Breast Reconstruction History Left nipple-sparing mastectomy, lymphatic mapping, sentinel node biopsies, additional excision of a 12 o'clock radial margin w/ Dr. Manriquez, subpectoral left breast reconstruction with immediate implant and Acellular Dermal Matrix (ADM) sling (8 cm x 16 cm) w/ Dr. Beltrán on 07/15/2016 Implant Info: Lysite MEMORY GEL COHESIVE I 14.1CM P4.3CM MODERATE PLUS PROFILE ROUND, 500cc Time post op: 6 years, 5 months -Breast cancer Hx: history of left breast cancer, IDC -Follows with oncology/breast center, [facility],no longer on tamoxifen as of 08/21/21 -Hx of implant reconstruction, no concerns today. Imaging: Mammogram (08/21/22): IMPRESSION: BENIGN FINDING There is no mammographic evidence of malignancy. A 1 year screening mammogram is recommended. REVIEW OF SYSTEMS All negative except for: GENERAL: []weight loss []malaise []fevers HEENT: []frequent or significant headaches []changes in hearing []change in vision []nose bleeds []other nasal problems NECK: []lumps []goiter []pain and significant neck swelling RESPIRATORY: []cough []hemoptysis []wheezing []COPD []dyspnea []shortness of breath CARDIOVASCULAR: []chest pain []leg swelling []hypertension []CHF []palpitations GI: []nausea []vomiting []diarrhea MUSCULOSKELETAL: [] joint pain or swelling [] back pain []muscle pain SKIN: [] skin lesions []rash []itching PSYCH: []sleep disturbance []mood disorder []recent psychosocial stressors HEMATOLOGY/LYMPHOLOGY: []prolonged bleeding []bruising easily []swollen nodes ENDOCRINE: []cold intolerance []heat intolerance []polyuria []polydipsia []goiter [] Diabetes -Hx of asymptomatic hypertrophic obstructive cardiomyopathy, follows w/ Dr. Coon in cardiology yearly Allergies: Polysporin [Bacitra* Rash Nickel Intolerance Comment:If pt wears ear rings with nickel in them ears get very red Penicillins Hives Pravastatin Other: See Comments Comment:loss of balance Btnfjli-Uef-Rub Red* Other: See Comments Comment:Muscle pains. Tried five different statins and had muscle pains with each one. Lipitor, Zocor, Livalo were included. Sulfa (Sulfonamide * GI Upset Zithromax [Azithrom* Intolerance Comment:Ringing in ears Arimidex [Anastrozo* Other: See Comments Comment:Itchy throat--had for several months. No respiratory symptoms. PAST MEDICAL HISTORY Diagnosis Date Breast cancer (HCC) 05/2016 Left breast cancer dx 05/2016. 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 Heart murmur 2013 Known since ~2013. Herpes simplex 10/27/2012 History of transfusion HOCM (hypertrophic obstructive cardiomyopathy) (HCC) 05/2016 Dx 05/2016 w/u murmur at time of breast cancer. Dx 05/2016 HCM, septal hypertrophy, EILEEN of MV, MR. Hyperlipidemia Hypertension Hypothyroidism MR (mitral regurgitation) 05/2016 Dx 05/2016 HCM, septal hypertrophy, EILEEN of MV, MR. Osteopenia 08/19/2018 Personal history of cardiac murmur Rosacea Systolic anterior movement of mitral valve 05/2016 Dx 05/2016 HCM, septal hypertrophy, EILEEN of MV, MR. Unspecified hypothyroidism PAST SURGICAL HISTORY Procedure Laterality Date ABDOMINAL SURGERY HX BREAST SURGERY HX BX BREAST W/DEVICE 1ST LESION STEREOTACTIC GUID Left 06/09/2016 x2. CATARACT EXTRACTION HX Bilateral DELIVERY ONLY two COLONOSCOPY 06/25/2021 repeat in 10 years COLONOSCOPY FLX DX W/COLLJ SPEC WHEN PFRMD 04/05/2009 Normal EYE SURGERY HX MASTECTOMY HX MASTECTOMY,SIMPLE Left 07/15/2016 SKIN BIOPSY HX TOTAL ABDOMINAL HYSTERECT W/WO RMVL TUBE OVARY Right ovary remains VAGINAL HYSTERECTOMY Current Outpatient Medications on File Prior to Visit Medication Sig tamoxifen (NOLVADEX) 20 mg tablet take 1 tablet by mouth once daily ubidecarenone (COENZYME Q10 ORAL) Take 40 mg by mouth once daily. Fish Oil-[place]-3 Fatty Acids (FISH OIL) 340-1,000 mg cap Take 2 capsules by mouth once daily. cholecalciferol (VITAMIN D-3) 2,000 unit tablet Take 4,000 Units by mouth once daily. metoprolol succinate ER (TOPROL XL) 50 mg 24 hr tablet Take 1 tablet by mouth twice daily. acyclovir (ZOVIRAX) 400 mg tablet Take 1 tablet by mouth twice daily as needed. levothyroxine sodium(SYNTHROID 75 MCG TAB) Take one(1) tablet daily. Current Facility-Administered Medications on File Prior to Visit Medication perflutren lipid microspheres 1.3 mL in NaCl (PF) 0.9% 10 mL injection (DEFINITY) sodium chloride 0.9 % (flush) 10 mL (BD POSIFLUSH) PE: Left breast (more content not included)... [facility] 12-06-2022 Note HNO ID: [id number] Author: Christian Coon MD Service: ? Author Type: Physician Type: Progress Notes Filed: 12/06/2022 4:28 PM Note Text: [facility] [place] [facility] Department of Cardiovascular Medicine SECTION OF CARDIOVASCULAR IMAGING OUTPATIENT VISIT DATE November 28, 2022 OUTPATIENT VISIT TYPE ESTABLISHED PRIMARY CARE PHYSICIAN: Mike Reynolds MD ([facility]) [address] [place] [id number] CHIEF COMPLAINT: F/U HISTORY OF PRESENT ILLNESS: Ms. Pedroza is a 77 year old female who presents today for follow-up visit asymptomatic hypertrophic obstructive cardiomyopathy. Able to sustain and a high functional capacity. Still actively plays tennis. Since her last visit, she states that she feels well from a cardiovascular perspective. She still claims to be able to play tennis and do all the physical activities. She plays golf and is also active with other things around the house. She denies chest pain, shortness of breath, orthopnea, cough, edema, palpitations, PND, lightheadedness or syncope. Medications reviewed. Tolerates them well. NURSING INTAKE: PAST MEDICAL HISTORY Diagnosis Date Breast cancer (HCC) 05/2016 Left breast cancer dx 05/2016. 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 Heart murmur 2014 Known since ~2013. Herpes simplex 10/27/2012 History of transfusion HOCM (hypertrophic obstructive cardiomyopathy) (HCC) 05/2016 Dx 05/2016 w/u murmur at time of breast cancer. Dx 05/2016 HCM, septal hypertrophy, EILEEN of MV, MR. Hyperlipidemia Hypertension Hypothyroidism MR (mitral regurgitation) 05/2016 Dx 05/2016 HCM, septal hypertrophy, EILEEN of MV, MR. Osteopenia 08/19/2018 Personal history of cardiac murmur Rosacea Systolic anterior movement of mitral valve 05/2016 Dx 05/2016 HCM, septal hypertrophy, EILEEN of MV, MR. Unspecified hypothyroidism PAST SURGICAL HISTORY Procedure Laterality Date ABDOMINAL SURGERY HX BREAST SURGERY HX BX BREAST W/DEVICE 1ST LESION STEREOTACTIC GUID Left 06/09/2016 x2. CATARACT EXTRACTION HX Bilateral DELIVERY ONLY two COLONOSCOPY 06/25/2021 repeat in 10 years COLONOSCOPY FLX DX W/COLLJ SPEC WHEN PFRMD 04/05/2009 Normal EYE SURGERY HX MASTECTOMY HX MASTECTOMY,SIMPLE Left 07/15/2016 SKIN BIOPSY HX TOTAL ABDOMINAL HYSTERECT W/WO RMVL TUBE OVARY Right ovary remains VAGINAL HYSTERECTOMY SOCIAL HISTORY Social History Tobacco Use Smoking status: Never Passive exposure: Past Smokeless tobacco: Never Vaping Use Vaping Use: Never used Substance Use Topics Alcohol use: Yes Comment: Rarely Drug use: Never FAMILY HISTORY Problem Relation Age of Onset Stroke Mother age 82 of sepsis. H/o ??heart problem, HTN, ?HPL, stroke. Coronary Artery Disease Mother Stroke Father age 82 of pancreatic cancer. H/o stroke, ?HTN, ?HPL. other (Pancreatic Cancer) Father other (Other) Sister Living age 62. Unsure of her history. other (Other) Maternal Grandfather age 72 of heart. No Known Problems Paternal Grandmother No Known Problems Paternal Grandfather other (Other) Son 3 children, all sons, all living AND healthy. Ages 39, 45, 49. Breast Cancer Maternal Aunt possible??? other (Other) Grandchild 4 grandchildren. All living AND healthy. ALLERGIES: ALLERGIES Allergen Reactions Polysporin [Bacitra* Rash Nickel Intolerance If pt wears ear rings with nickel in them ears get very red Penicillins Hives Pravastatin Other: See Comments loss of balance Qvzolup-Tkb-Rwx Red* Other: See Comments Muscle pains. Tried five different statins and had muscle pains with each one. Lipitor, Zocor, Livalo were included. Sulfa (Sulfonamide * GI Upset Zithromax [Azithrom* Intolerance Ringing in ears Arimidex [Anastrozo* Other: See Comments Itchy throat--had for several months. No respiratory symptoms. MEDICATIONS: valACYclovir (VALTREX) 500 mg tabletTake 500 mg by mouth as directed.Disp: Rfl: metoprolol succinate ER (TOPROL XL) 50 mg 24 hr iokecl05 mg in the morning and 75 mg in the eveningDisp: Rfl: ubidecarenone (COENZYME Q10 ORAL)Take 40 mg by mouth once daily.Disp: Rfl: Fish Oil-[place]-3 Fatty Acids 340-1,000 mg capTake 2 capsules by mouth once daily.Disp: Rfl: levothyroxine sodium(SYNTHROID 75 MCG TAB)Take one(1) tablet daily.Disp: Rfl: 0 PHYSICAL EXAMINATION: BP 104/60 Pulse (!) 53 Resp 12 Ht 152.4 cm (5') Wt 61.2 kg (135 lb) SpO2 98% BMI 26.37 kg/m? Reviewed her blood pressure log from home and it is within normal. General: Well appearing, in no acute distress. Skin: No clubbing, no cyanosis. Eyes: Extra ocular movements intact Oropharynx: Teeth in good repair. Neck: No jugular venous distention, no carotid bruits, carotids have a normal (more content not included)... [facility] 08-25-2022 Note HNO ID: [id number] Author: Andrea Salas APRN.DRAMA TEACHER Service: ? Author Type: Nurse Practitioner Type: Progress Notes Filed: 08/25/2022 2:06 PM Note Text: Chief Complaint Patient presents with: Establish Care HPI: Symone Pedroza is a 77 year old female who presents here today for follow up breast cancer. Per Dr. Ghotra's previous note: H/o abnormality in the left breast on screening mammogram. She underwent a core needle biopsy. MICROSCOPIC DIAGNOSIS Left breast upper outer quadrant, stereotactic core biopsy: Invasive ductal carcinoma, nuclear grade 1 (0.9 cm in greatest length). ANTIBODY / CLONE RESULT E-Cad (ECH-6) positive CK8 ([id number]) positive Actin (1A4) negative P63 (7JUL/4A4) negative Calponin-1 (TY957U) negative CK5-6 (D5 AND 1684) negative Ki-67 (30-9) positive, low P53 (DO-7) negative MORPHOMETRIC ANALYSIS ER (clone 6F11) >95%, strong UT (clone 16/1E2) >95%, strong Her-2Neu (clone CB11) 2-3+ IN SITU HYBRIDIZATION (ROB) FOR HER2 Interpretation: Not Amplified HER2 : CEP-17 Ratio: 1.38 Average HER2 Signal: 2.15 Average CEP-17 Signal: 1.55 Number of Tumor Cells Scanned: 50 Prior to surgery she was apparently found to have hypertrophic obstructive cardiomyopathy because of a murmur appreciated on exam. However she completely asymptomatic for this. She underwent cardiac evaluation main [facility]. She also underwent a stress echo testing at [facility]. She therefore underwent a left sided mastectomy along with a axillary sentinel lymph node biopsy procedure. 1. Left axilla, sentinel lymph node, excision (A) - One lymph node, negative for metastatic carcinoma (0/1). 2. Breast, left, mastectomy (B) - Invasive ductal carcinoma, histologic grade 2 (See synoptic report and comment). 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 - Focal atypical ductal hyperplasia. - Biopsy site identified. 3. Breast, left, 12 o'clock, radial margin, excision (C) - Negative for carcinoma. 4. Left breast, additional lymph nodes, excision (D) - Three lymph nodes, metastatic carcinoma (0/3). LEFT BREAST MASTECTOMY: Part: B Specimen Laterality: Left Procedure: Mastectomy Wire/Image Guided Localization: Absent Lymph Node Sampling: [place] lymph node(s) Other lymph nodes (eg, supraclavicular or location not identified) Tumor size: Size of largest invasive carcinoma: Greatest dimension of largest focus of invasion >1 mm: 20 mm Tumor Focality: Single focus of invasive carcinoma Macroscopic-Microscopic Extension of tumor: Skin: Not applicable Nipple: Not applicable Skeletal muscle: Not applicable Invasive Carcinoma Margins: Margins uninvolved by invasive carcinoma Distance from closest margin: 3 mm Closest Uninvolved Margin:Radial Distance of invasive carcinoma to deep margin: 10 mm DCIS Margins: DCIS not present in specimen Histologic Type of Invasive Carcinoma: Invasive ductal carcinoma (no special type or not otherwise specified) Histologic Grade: Glandular (Acinar) / Tubular Differentiation: Score 3 Nuclear Pleomorphism: Score 2 Mitotic Rate: Score 1 Overall Grade: Grade II Lymph-Vascular Invasion: Not identified Ductal Carcinoma In Situ: No DCIS is present Lymph Nodes: Total number of nodes examined (sentinel and nonsentinel): 4 Number of sentinel lymph nodes examined: 1 Number of lymph nodes with macrometastases (>2 mm): 0 Number of lymph nodes with micrometastases (>0.2 mm to 2 mm and/or >200 cells): 0 Number of lymph nodes with isolated tumor cells (<= 0.2 mm and <= 200 cells): 0 TNM Descriptor(s): Not applicable Primary Tumor (Invasive Carcinoma) (pT): pT1c Regional Lymph Nodes (pN): Modifier: (sn) Category (pN): pN0 Distant metastasis: Not Applicable Previous therapy: 1) Anastrozole. Began 07/2016. 2) Letrozole. Started 04/2017. Previous therapy: 1) Tamoxifen. Began 01/2019. Completed therapy August 21, 2021 No new concerns today. Appetite: Too large. Energy level: Ok. Denies fevers or recent illness. Resp:denies cough or sob Cardiac:denies chest pain/palpitations GI:denies abd pain, n/v, moving bowels regularly :denies dysuria/hematuria Extrem:denies pain Endo:denies hot flashes Neuro:denies symptoms of neuropathy Skin:denies rashes Heme:denies bleeding The ROS is otherwise negative. Past medical history, appointments, medications, allergies reviewed. No changes. EXAM: BP 141/100 Pulse 90 Temp 36.2 ?C (97.1 ?F) Ht 152.4 cm (5') Wt 62.6 kg (138 lb) SpO2 96% BMI 26.95 kg/m? APPEARANCE Well appearing, alert, in no acute distress, well-hydrated, well nourished. HEART RRR with normal S1 and S2, no murmurs LUNG clear to auscultation BREAST FEMALE R no mass/nodule, L recon/implant no surrounding mass/nodule LYMPH NODES No cervical lymphadenopathy, No supraclavicular ly (more content not included)... [facility] 08-25-2022 History of Presen t illness Narrative Chief Complaint Patient presents with: Establish Care HPI: Symone Pedroza is a 77 year old female who presents here today for follow up breast cancer. Per Dr. Ghotra's previous note: H/o abnormality in the left breast on screening mammogram. She underwent a core needle biopsy. MICROSCOPIC DIAGNOSIS Left breast upper outer quadrant, stereotactic core biopsy: Invasive ductal carcinoma, nuclear grade 1 (0.9 cm in greatest length). ANTIBODY / CLONE RESULT E-Cad (ECH-6) positive CK8 ([id number]) positive Actin (1A4) negative P63 (7JUL/4A4) negative Calponin-1 (NK764E) negative CK5-6 (D5 & 1684) negative Ki-67 (30-9) positive, low P53 (DO-7) negative MORPHOMETRIC ANALYSIS ER (clone 6F11) >95%, strong UT (clone 16/1E2) >95%, strong Her-2Neu (clone CB11) 2-3+ IN SITU HYBRIDIZATION (ROB) FOR HER2 Interpretation: Not Amplified HER2 : CEP-17 Ratio: 1.38 Average HER2 Signal: 2.15 Average CEP-17 Signal: 1.55 Number of Tumor Cells Scanned: 50 Prior to surgery she was apparently found to have hypertrophic obstructive cardiomyopathy because of a murmur appreciated on exam. However she completely asymptomatic for this. She underwent cardiac evaluation main [facility]. She also underwent a stress echo testing at [facility]. She therefore underwent a left sided mastectomy along with a axillary sentinel lymph node biopsy procedure. 1. Left axilla, sentinel lymph node, excision (A) - One lymph node, negative for metastatic carcinoma (0/1). 2. Breast, left, mastectomy (B) - Invasive ductal carcinoma, histologic grade 2 (See synoptic report and comment). 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 - Focal atypical ductal hyperplasia. - Biopsy site identified. 3. Breast, left, 12 o'clock, radial margin, excision (C) - Negative for carcinoma. 4. Left breast, additional lymph nodes, excision (D) - Three lymph nodes, metastatic carcinoma (0/3). LEFT BREAST MASTECTOMY: Part: B Specimen Laterality: Left Procedure: Mastectomy Wire/Image Guided Localization: Absent Lymph Node Sampling: [place] lymph node(s) Other lymph nodes (eg, supraclavicular or location not identified) Tumor size: Size of largest invasive carcinoma: Greatest dimension of largest focus of invasion >1 mm: 20 mm Tumor Focality: Single focus of invasive carcinoma Macroscopic-Microscopic Extension of tumor: Skin: Not applicable Nipple: Not applicable Skeletal muscle: Not applicable Invasive Carcinoma Margins: Margins uninvolved by invasive carcinoma Distance from closest margin: 3 mm Closest Uninvolved Margin:Radial Distance of invasive carcinoma to deep margin: 10 mm DCIS Margins: DCIS not present in specimen Histologic Type of Invasive Carcinoma: Invasive ductal carcinoma (no special type or not otherwise specified) Histologic Grade: Glandular (Acinar) / Tubular Differentiation: Score 3 Nuclear Pleomorphism: Score 2 Mitotic Rate: Score 1 Overall Grade: Grade II Lymph-Vascular Invasion: Not identified Ductal Carcinoma In Situ: No DCIS is present Lymph Nodes: Total number of nodes examined (sentinel and nonsentinel): 4 Number of sentinel lymph nodes examined: 1 Number of lymph nodes with macrometastases (>2 mm): 0 Number of lymph nodes with micrometastases (>0.2 mm to 2 mm and/or >200 cells): 0 Number of lymph nodes with isolated tumor cells (<= 0.2 mm and <= 200 cells): 0 TNM Descriptor(s): Not applicable Primary Tumor (Invasive Carcinoma) (pT): pT1c Regional Lymph Nodes (pN): Modifier: (sn) Category (pN): pN0 Distant metastasis: Not Applicable Previous therapy: 1) Anastrozole. Began 07/2016. 2) Letrozole. Started 04/2017. Previous therapy: 1) Tamoxifen. Began 01/2019. Completed therapy August 21, 2021 No new concerns today. Appetite: Too large. Energy level: Ok. Denies fevers or recent illness. Resp:denies cough or sob Cardiac:denies chest pain/palpitations GI:denies abd pain, n/v, moving bowels regularly :denies dysuria/hematuria Extrem:denies pain Endo:denies hot flashes Neuro:denies symptoms of neuropathy Skin:denies rashes Heme:denies bleeding The ROS is otherwise negative. Past medical history, appointments, medications, allergies reviewed. No changes. EXAM: BP 141/100 Pulse 90 Temp 36.2 C (97.1 F) Ht 152.4 cm (5') Wt 62.6 kg (138 lb) SpO2 96% BMI 26.95 kg/m APPEARANCE Well appearing, alert, in no acute distress, well-hydrated, well nourished. HEART RRR with normal S1 and S2, no murmurs LUNG clear to auscultation BREAST FEMALE R no mass/nodule, L recon/implant no surrounding mass/nodule LYMPH NODES No cervical lymphadenopathy, No supraclavicular lymphadenopathy, and No axillary lymphadenopathy. ABDOMEN bowel sounds normoactive, soft, non-tender EXTREMITIES No edema NEURO Awake, alert and oriented x 3, Normal gait, and No involuntary motions. SKIN Skin color, texture, turgor normal, no suspicious rashes or lesions RADIOLOGY: R mammogram 08/21/22: IMPRESSION: BENIGN FINDING There is no mammographic evidence of malignancy. A 1 year screening mammogram is recommended. ASSESSMENT/PLAN: 1. Personal history of breast cancer - ICD9: V10.3, ICD10: Z85.3 (primary diagnosis) pT1c pN0 M0 ER/UT positive, HER2 non-amplified invasive ductal carcinoma the left breast. Oncotype Dx score 18 (11% risk). - No concerning findings on exam. - Tolerated tamoxifen well. - Completed 5 years of combined AI/tamoxifen therapy. - Completed tamoxifen August 21, 2021. - Reviewed R mammogram with pt. - R mammogram due early August 2023. - Follow up after R mammogram. - Pt. aware to call office with any questions/concerns. The patient indicates understanding of these issues and agrees with the plan. All documentation from previous visit of 12/12/21-Dr. Ghotra/myself was copied and pasted, documentation has been reviewed and edited as necessary for today's visit. Andrea Salas APRN.CECILIA documented in this encounter [facility] 08-21-2022 Note HNO ID: [id number] Author: RT Radha(R) Service: ? Author Type: Technologist Type: Progress Notes Filed: 08/21/2022 1:26 PM Note Text: Radiology Service Progress Note PATIENT NAME: Symone Pedroza DATE OF SERVICE: August 21, 2022 TIME: 1:26 PM PATIENT IDENTITY VERIFICATION COMPLETED USING TWO (2) IDENTIFIERS: Name and Date of confirmed by patient verbally. FALL SCREENING: Has the patient had 2 falls in the last year or 1 fall with injury or currently using an Ambulatory Assistive Device (Walker, Cane, Wheelchair, Crutches, etc.)? No PATIENT GENDER DATA: Female. status: : No status: NO. PATIENT RELEVANT IMPLANT DATA REVIEWED: Not Applicable RADIOLOGY DEPARTMENT: Mammography PERIPHERAL IV DATA: Not applicable SIGNED BY: RT Radha(R) August 21, 2022 1:26 PM [facility] 08-21-2022 History of Presen t illness Narrative Radiology Service Progress Note PATIENT NAME: Symone Pedroza DATE OF SERVICE: August 21, 2022 TIME: 1:26 PM PATIENT IDENTITY VERIFICATION COMPLETED USING TWO (2) IDENTIFIERS: Name and Date of confirmed by patient verbally. FALL SCREENING: Has the patient had 2 falls in the last year or 1 fall with injury or currently using an Ambulatory Assistive Device (Walker, Cane, Wheelchair, Crutches, etc.)? No PATIENT GENDER DATA: Female. status: : No status: NO. PATIENT RELEVANT IMPLANT DATA REVIEWED: Not Applicable RADIOLOGY DEPARTMENT: Mammography PERIPHERAL IV DATA: Not applicable SIGNED BY: RT Radha(R) August 21, 2022 1:26 PM documented in this encounter [facility] 06-09-2022 Note HNO ID: [id number] Author: Desi Webb Service: ? Author Type: ? Type: Progress Notes Filed: 06/09/2022 5:54 PM Note Text: [facility] 06-09-2022 History of Presen t illness Narrative documented in this encounter [facility] 12-12-2021 History of Presen t illness Narrative Chief Complaint Patient presents with: On License Of [facility] Care HPI: Symone Pedroza is a 76 year old female who presents here today for follow up breast cancer. Per Dr. Ghotra's previous note: H/o abnormality in the left breast on screening mammogram. She underwent a core needle biopsy. MICROSCOPIC DIAGNOSIS Left breast upper outer quadrant, stereotactic core biopsy: Invasive ductal carcinoma, nuclear grade 1 (0.9 cm in greatest length). ANTIBODY / CLONE RESULT E-Cad (ECH-6) positive CK8 ([id number]) positive Actin (1A4) negative P63 (7JUL/4A4) negative Calponin-1 (SZ244U) negative CK5-6 (D5 & 1684) negative Ki-67 (30-9) positive, low P53 (DO-7) negative MORPHOMETRIC ANALYSIS ER (clone 6F11) >95%, strong UT (clone 16/1E2) >95%, strong Her-2Neu (clone CB11) 2-3+ IN SITU HYBRIDIZATION (ROB) FOR HER2 Interpretation: Not Amplified HER2 : CEP-17 Ratio: 1.38 Average HER2 Signal: 2.15 Average CEP-17 Signal: 1.55 Number of Tumor Cells Scanned: 50 Prior to surgery she was apparently found to have hypertrophic obstructive cardiomyopathy because of a murmur appreciated on exam. However she completely asymptomatic for this. She underwent cardiac evaluation main [facility]. She also underwent a stress echo testing at [facility]. She therefore underwent a left sided mastectomy along with a axillary sentinel lymph node biopsy procedure. 1. Left axilla, sentinel lymph node, excision (A) - One lymph node, negative for metastatic carcinoma (0/1). 2. Breast, left, mastectomy (B) - Invasive ductal carcinoma, histologic grade 2 (See synoptic report and comment). 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 - Focal atypical ductal hyperplasia. - Biopsy site identified. 3. Breast, left, 12 o'clock, radial margin, excision (C) - Negative for carcinoma. 4. Left breast, additional lymph nodes, excision (D) - Three lymph nodes, metastatic carcinoma (0/3). LEFT BREAST MASTECTOMY: Part: B Specimen Laterality: Left Procedure: Mastectomy Wire/Image Guided Localization: Absent Lymph Node Sampling: [place] lymph node(s) Other lymph nodes (eg, supraclavicular or location not identified) Tumor size: Size of largest invasive carcinoma: Greatest dimension of largest focus of invasion >1 mm: 20 mm Tumor Focality: Single focus of invasive carcinoma Macroscopic-Microscopic Extension of tumor: Skin: Not applicable Nipple: Not applicable Skeletal muscle: Not applicable Invasive Carcinoma Margins: Margins uninvolved by invasive carcinoma Distance from closest margin: 3 mm Closest Uninvolved Margin:Radial Distance of invasive carcinoma to deep margin: 10 mm DCIS Margins: DCIS not present in specimen Histologic Type of Invasive Carcinoma: Invasive ductal carcinoma (no special type or not otherwise specified) Histologic Grade: Glandular (Acinar) / Tubular Differentiation: Score 3 Nuclear Pleomorphism: Score 2 Mitotic Rate: Score 1 Overall Grade: Grade II Lymph-Vascular Invasion: Not identified Ductal Carcinoma In Situ: No DCIS is present Lymph Nodes: Total number of nodes examined (sentinel and nonsentinel): 4 Number of sentinel lymph nodes examined: 1 Number of lymph nodes with macrometastases (>2 mm): 0 Number of lymph nodes with micrometastases (>0.2 mm to 2 mm and/or >200 cells): 0 Number of lymph nodes with isolated tumor cells (<= 0.2 mm and <= 200 cells): 0 TNM Descriptor(s): Not applicable Primary Tumor (Invasive Carcinoma) (pT): pT1c Regional Lymph Nodes (pN): Modifier: (sn) Category (pN): pN0 Distant metastasis: Not Applicable Previous therapy: 1) Anastrozole. Began 07/2016. 2) Letrozole. Started 04/2017. Previous therapy: 1) Tamoxifen. Began 01/2019. Completed therapy August 21, 2021 No new concerns today. Appetite: Good. Energy level: I'm high energy. Denies fevers or recent illness. Resp:denies cough or sob Cardiac:denies chest pain/palpitations GI:denies abd pain, n/v, moving bowels regularly :denies dysuria/hematuria Extrem:denies pain Endo:hot flashes I'm just hotter than everyone else. Neuro:denies symptoms of neuropathy Skin:R breast rash x past 2 days Heme:denies bleeding The ROS is otherwise negative. Past medical history, appointments, medications, allergies reviewed. No changes. EXAM: BP 140/92 Pulse 62 Temp 36.1 C (97 F) Ht 151 cm (4' 11.45 ) Wt 62.1 kg (137 lb) BMI 27.25 kg/m APPEARANCE Well appearing, alert, in no acute distress, well-hydrated, well nourished. HEART RRR with normal S1 and S2, no murmurs LUNG clear to auscultation BREAST FEMALE R no mass/nodule-fine red rash to lower/outer, no skin dimpling/tenderness, L recon/implant no surrounding mass/nodule LYMPH NODES No cervical lymphadenopathy, No supraclavicular lymphadenopathy, and No axillary lymphadenopathy. ABDOMEN bowel sounds normoactive, soft, non-tender, non-distended, without organomegaly or palpable masses EXTREMITIES No edema NEURO Awake, alert and oriented x 3, Normal gait, and No involuntary motions. SKIN as above ASSESSMENT/PLAN: 1. 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 Oncotype Dx score 18 (11% risk). - R breast rash x past 2 days. No other concerning findings on exam. - Tolerated tamoxifen well. - Completed 5 years of combined AI/tamoxifen therapy. - Completed tamoxifen August 21, 2021. - R breast rash-if no improvement or worsening of symptoms will follow up with Dr. Pizano. - R mammogram due end July 2022. - Follow up after mammogram. Will then plan for yearly visits-timed with mammogram. - Pt. aware to call office with any questions/concerns. The patient indicates understanding of these issues and agrees with the plan. All documentation from previous visit of 06/13/21-Dr. Ghotra/myself was copied and pasted, documentation has been reviewed and edited as necessary for today's visit. Andrea Salas APRN.CECILIA documented in this encounter [facility] 11-04-2021 History of Presen t illness Narrative Images from the original note were not included. [facility] [place] Riccardo Hamm Department of Cardiovascular Medicine SECTION OF CARDIOVASCULAR IMAGING OUTPATIENT VISIT DATE November 04, 2021 OUTPATIENT VISIT TYPE ESTABLISHED PRIMARY CARE PHYSICIAN: Mike Reynolds MD ([facility]) [address] [place] [address] CHIEF COMPLAINT: F/U HISTORY OF PRESENT ILLNESS: Ms. Pedroza is a 76 year old female who presents today for follow-up visit asymptomatic hypertrophic obstructive cardiomyopathy. Able to sustain and a high functional capacity. Since her last visit, she states that she feels well from a cardiovascular perspective. She still claims to be able to play tennis and do all the physical activities. She plays golf and is also active with other things around the house. She denies chest pain, shortness of breath, orthopnea, cough, edema, palpitations, PND, lightheadedness or syncope. Medications reviewed. Tolerates them well. NURSING INTAKE: PAST MEDICAL HISTORY Diagnosis Date Breast cancer (HCC) 05/2016 Left breast cancer dx 05/2016. 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 Heart murmur 2013 Known since ~2013. Herpes simplex 10/27/2012 History of transfusion HOCM (hypertrophic obstructive cardiomyopathy) (HCC) 05/2016 Dx 05/2016 w/u murmur at time of breast cancer. Dx 05/2016 HCM, septal hypertrophy, EILEEN of MV, MR. Hyperlipidemia Hypertension Hypothyroidism MR (mitral regurgitation) 05/2016 Dx 05/2016 HCM, septal hypertrophy, EILEEN of MV, MR. Osteopenia 08/19/2018 Personal history of cardiac murmur Rosacea Systolic anterior movement of mitral valve 05/2016 Dx 05/2016 HCM, septal hypertrophy, EILEEN of MV, MR. Unspecified hypothyroidism PAST SURGICAL HISTORY Procedure Laterality Date ABDOMINAL SURGERY HX BREAST SURGERY HX BX BREAST W/DEVICE 1ST LESION STEREOTACTIC GUID Left 06/09/2016 x2. CATARACT EXTRACTION HX Bilateral DELIVERY ONLY two COLONOSCOPY 06/25/2021 repeat in 10 years COLONOSCOPY FLX DX W/COLLJ SPEC WHEN PFRMD 04/05/2009 Normal EYE SURGERY HX MASTECTOMY HX MASTECTOMY,SIMPLE Left 07/15/2016 SKIN BIOPSY HX TOTAL ABDOMINAL HYSTERECT W/WO RMVL TUBE OVARY Right ovary remains VAGINAL HYSTERECTOMY SOCIAL HISTORY Social History Tobacco Use Smoking status: Never Smokeless tobacco: Never Vaping Use Vaping Use: Never used Substance Use Topics Alcohol use: Not Currently Comment: Rarely Drug use: No FAMILY HISTORY Problem Relation Age of Onset Stroke Mother age 82 of sepsis. H/o ??heart problem, HTN, ?HPL, stroke. Coronary Artery Disease Mother Stroke Father age 82 of pancreatic cancer. H/o stroke, ?HTN, ?HPL. other (Pancreatic Cancer) Father other (Other) Sister Living age 62. Unsure of her history. other (Other) Maternal Grandfather age 72 of heart. other (Other) Son 3 children, all sons, all living & healthy. Ages 39, 45, 49. Breast Cancer Maternal Aunt possible??? other (Other) Grandchild 4 grandchildren. All living & healthy. ALLERGIES: ALLERGIES Allergen Reactions Polysporin [Bacitra* Rash Nickel Intolerance If pt wears ear rings with nickel in them ears get very red Penicillins Hives Pravastatin Other: See Comments loss of balance Wtotuvu-Grb-Vgj Red* Other: See Comments Muscle pains. Tried five different statins and had muscle pains with each one. Lipitor, Zocor, Livalo were included. Sulfa (Sulfonamide * GI Upset Zithromax [Azithrom* Intolerance Ringing in ears Arimidex [Anastrozo* Other: See Comments Itchy throat--had for several months. No respiratory symptoms. MEDICATIONS: docusate sodium (COLACE ORAL)^Take by mouth once daily.^Disp: ^Rfl: metoprolol succinate ER (TOPROL XL) 50 mg 24 hr tablet^50 mg in the morning and 75 mg in the evening^Disp: ^Rfl: ubidecarenone (COENZYME Q10 ORAL)^Take 40 mg by mouth once daily.^Disp: ^Rfl: Fish Oil-[place]-3 Fatty Acids 340-1,000 mg cap^Take 2 capsules by mouth once daily.^Disp: ^Rfl: acyclovir (ZOVIRAX) 400 mg tablet^Take 400 mg by mouth twice daily as needed.^Disp: ^Rfl: 0 levothyroxine sodium(SYNTHROID 75 MCG TAB)^Take one(1) tablet daily.^Disp: ^Rfl: 0 PHYSICAL EXAMINATION: BP 168/80 (BP Site: Right Arm, BP Position: Sitting) Pulse 61 Ht 152.4 cm (5') Wt 58.8 kg (129 lb 9.6 oz) SpO2 97% BMI 25.31 kg/m Reviewed her blood pressure log from home and it is within normal. General: Well appearing, in no acute distress. Skin: No clubbing, no cyanosis. Eyes: Extra ocular movements intact Oropharynx: Teeth in good repair. Neck: No jugular venous distention, no carotid bruits, carotids have a normal upstroke, no palpable thyromegaly. Lungs: Clear to auscultation bilaterally, no wheezing or rhonchi. Heart: Regular rhythm, PMI not displaced, S1, S2 normal, no S3, no S4, no heaves, no rub and 1-2/6 systolic left upper sternal border murmur. Abdomen: Soft, nontender, bowel sounds normal, no palpable organomegaly, no bruits. Extremities: No peripheral edema . Grade 2/4 distal pulses bilaterally. Neuro: Oriented to person, place and time, alert, cooperative, gait coordinated. CARDIOVASCULAR MEDICINE TESTING: EKG NORMAL SINUS RHYTHM ANTERIOR T WAVE ABNORMALITY ABNORMAL ECG Echo - Technically difficult exam due to Breast Implant. - Exam indication: HOCM - The left ventricle is normal in size. There is left ventricular hypertrophy. Left ventricular systolic function is normal. EF = 73 5% (2D biplane) - The right ventricle is normal in size. Right ventricular systolic function is normal. - There is moderate (2+) mitral valve regurgitation. Regurgitant orifice area (PISA) is 0.46 cm . -At rest (57 bpm): No EILEEN, 2+ MR, Peak gradient of 8 mmHg. - With valsalva there is no change. - With Amyl ( 76 bpm) there is no EILEEN 2+ MR, and a peak gradient of 62 bpm. - Exam was compared with the prior echocardiographic exam performed on 10/29/20. IMPRESSION: Ms. Pedroza is a 76 year old female with hypertrophic obstructive cardiomyopathy. Claims to be still able to function at a high capacity. PLAN AND RECOMMENDATIONS: I met with the patient and her and answered all the questions after review of all available studies. Patient continues to have provokable LVOT gradient which is significantly improved compared to prior. I continue current care including current medications. Lifestyle modifications reiterated. Follow-up in 1 year with EKG and echo. Continue last of modifications and current medications. We discussed the possibility of initiating cardiac myosin inhibitors in the setting of LVOT gradient. However considering the fact that she is asymptomatic, I do not feel that we are there yet. She will continue to watch out for symptoms and call me if there are any issues. I personally interviewed, confirmed and edited the above information as obtained by others. CONTACT INFORMATION: Christian Coon MD, [place], [facility], FA, [facility] Nigel Valles Endowed Chair in CV Medicine, microsoft dynamics developer, [facility] Director, Clinical Operations, Director HCM Center, Pointing Machine Operator, [facility] Department of Cardiovascular Medicine, [facility] [place], Desk J1-5, [facility], [address] [place] [address] Office , Office Appointments: [phone] -[phone] extension [phone] documented in this encounter [facility] 11-04-2021 History of Presen t illness Narrative 11/04/2021 3:40 PM Order reviewed by nurse:yes Medications: Amyl Nitrite - dosage 0.3 ml via inhalation Reaction: No documented in this encounter [facility] 09-17-2021 History of Presen t illness Narrative Plastic Surgery note CC: Follow Up for Breast Reconstruction HPI: Symone Pedroza is a 76 year old that presents today to establish care for breast reconstruction. She is a former patient of Dr. Beltrán. She is happy w/ results of her reconstruction. Surgery: Subpectoral left breast reconstruction with immediate implant and Acellular Dermal Matrix (ADM) sling (8 cm x 16 cm) w/ Dr. Beltrán on 07/15/2016 Implant Info: IMPLANT MEMORYGEL COHESIVE I 14.1CM P4.3CM MODERATE PLUS PROFILE ROUND, 500cc Time post op: 5 years -Breast cancer Hx: history of left breast cancer -Follows with oncology/breast center, AVI Lucas,no longer on tamoxifen as of 08/21/21 -Hx of implant reconstruction, no concerns today. Imaging: Mammogram (08/09/20): IMPRESSION: BENIGN FINDING There is no mammographic evidence of malignancy. A 1 year screening mammogram is recommended. REVIEW OF SYSTEMS All negative except for: GENERAL: []weight loss []malaise []fevers HEENT: []frequent or significant headaches []changes in hearing []change in vision []nose bleeds []other nasal problems NECK: []lumps []goiter []pain and significant neck swelling RESPIRATORY: []cough []hemoptysis []wheezing []COPD []dyspnea []shortness of breath CARDIOVASCULAR: []chest pain []leg swelling []hypertension []CHF []palpitations GI: []nausea []vomiting []diarrhea MUSCULOSKELETAL: [] joint pain or swelling [] back pain []muscle pain SKIN: [] skin lesions []rash []itching PSYCH: []sleep disturbance []mood disorder []recent psychosocial stressors HEMATOLOGY/LYMPHOLOGY: []prolonged bleeding []bruising easily []swollen nodes ENDOCRINE: []cold intolerance []heat intolerance []polyuria []polydipsia []goiter [] Diabetes -Hx of asymptomatic hypertrophic obstructive cardiomyopathy, follows w/ Dr. Coon in cardiology yearly Allergies: Polysporin [Bacitra* Rash Nickel Intolerance Comment:If pt wears ear rings with nickel in them ears get very red Penicillins Hives Pravastatin Other: See Comments Comment:loss of balance Vhqplph-Gdv-Tbp Red* Other: See Comments Comment:Muscle pains. Tried five different statins and had muscle pains with each one. Lipitor, Zocor, Livalo were included. Sulfa (Sulfonamide * GI Upset Zithromax [Azithrom* Intolerance Comment:Ringing in ears Arimidex [Anastrozo* Other: See Comments Comment:Itchy throat--had for several months. No respiratory symptoms. PAST MEDICAL HISTORY Diagnosis Date Breast cancer (HCC) 05/2016 Left breast cancer dx 05/2016. 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 Heart murmur 2013 Known since ~2013. Herpes simplex 10/27/2012 History of transfusion HOCM (hypertrophic obstructive cardiomyopathy) (HCC) 05/2016 Dx 05/2016 w/u murmur at time of breast cancer. Dx 05/2016 HCM, septal hypertrophy, EILEEN of MV, MR. Hyperlipidemia Hypertension Hypothyroidism MR (mitral regurgitation) 05/2016 Dx 05/2016 HCM, septal hypertrophy, EILEEN of MV, MR. Osteopenia 08/19/2018 Personal history of cardiac murmur Rosacea Systolic anterior movement of mitral valve 05/2016 Dx 05/2016 HCM, septal hypertrophy, EILEEN of MV, MR. Unspecified hypothyroidism PAST SURGICAL HISTORY Procedure Laterality Date ABDOMINAL SURGERY HX BREAST SURGERY HX BX BREAST W/DEVICE 1ST LESION STEREOTACTIC GUID Left 06/09/2016 x2. CATARACT EXTRACTION HX Bilateral DELIVERY ONLY two COLONOSCOPY 06/25/2021 repeat in 10 years COLONOSCOPY FLX DX W/COLLJ SPEC WHEN PFRMD 04/05/2009 Normal EYE SURGERY HX MASTECTOMY HX MASTECTOMY,SIMPLE Left 07/15/2016 SKIN BIOPSY HX TOTAL ABDOMINAL HYSTERECT W/WO RMVL TUBE OVARY Right ovary remains VAGINAL HYSTERECTOMY Current Outpatient Medications on File Prior to Visit Medication Sig tamoxifen (NOLVADEX) 20 mg tablet take 1 tablet by mouth once daily ubidecarenone (COENZYME Q10 ORAL) Take 40 mg by mouth once daily. Fish Oil-[place]-3 Fatty Acids (FISH OIL) 340-1,000 mg cap Take 2 capsules by mouth once daily. cholecalciferol (VITAMIN D-3) 2,000 unit tablet Take 4,000 Units by mouth once daily. metoprolol succinate ER (TOPROL XL) 50 mg 24 hr tablet Take 1 tablet by mouth twice daily. acyclovir (ZOVIRAX) 400 mg tablet Take 1 tablet by mouth twice daily as needed. levothyroxine sodium(SYNTHROID 75 MCG TAB) Take one(1) tablet daily. Current Facility-Administered Medications on File Prior to Visit Medication perflutren lipid microspheres 1.3 mL in NaCl (PF) 0.9% 10 mL injection (DEFINITY) sodium chloride 0.9 % (flush) 10 mL (BD POSIFLUSH) PE: Left breast scar well healed Left breast implant in place, soft ASSESSMENT/PLAN: Symone Pedroza is a 76 year old with hx of left breast cancer, s/p left breast reconstruction w/ smooth, round silicone implant An extensive discussion was undertaken with the patient and her regarding her breast reconstruction and I have advised her to contact me at any time with further questions she may have regarding breast reconstruction. Photos today Return to clinic in 1 year, order bilateral breast US next visit The patient is seen and examined by Dr. Valdovinos and the following reflects her service. Scribed by Mahi Fuentes RN . I agree with the Chief Complaint, ROS, and Past Histories independently gathered by the clinical computer systems support specialist and the remaining scribed note accurately describes my personal service to the patient. I spent 30 minutes in the visit, with more than 50% of the total [id number] time of the visit in counseling / coordination of care. She is doing well. She is satisfied with the results. She is 5 years out from surgery. She wants to wait until next year to do the breast US for implant rupture screening. Edu Valdovinos MD documented in this encounter [facility] 08-20-2021 Miscellaneous Notes Spoke with patient, advising below. Patient stated understanding. Lisa Carrasco Please inform pt. that her mammogram looks good. Follow up as scheduled. Thank you. Andrea Salas APRN.CNP documented in this encounter [facility] 08-15-2021 Miscellaneous Notes August 15, 2021 PID: [id number] Symone Pedroza [address] [place] [address] Dear Ms. Pedroza, We are pleased to inform you that the results of your recent breast imaging exam on 08/15/2021 are normal. Your mammogram demonstrates that you have dense breast tissue, which could hide abnormalities. Dense breast tissue, in and of itself, is a relatively common condition. Therefore, this information is not provided to cause undue concern; rather, it is to raise your awareness and promote discussion with your health care provider regarding the presence of dense breast tissue in addition to other risk factors. Early detection of cancer is very important. We also understand recommendations regarding breast cancer screening are controversial. Please discuss with your primary care provider which strategy is best for you and whether a mammogram is right for you. Your imaging studies and report will be kept on file at [facility] as part of your permanent medical record and are available for your continuing care. Thank you for allowing us to help in meeting your health care needs. Sincerely, Dr. Alberts Interpreting Radiologist [facility] (Normal over 40) documented in this encounter [facility] 08-15-2021 History of Presen t illness Narrative Radiology Service Progress Note PATIENT NAME: Symone Pedroza DATE OF SERVICE: August 15, 2021 TIME: 11:29 AM PATIENT IDENTITY VERIFICATION COMPLETED USING TWO (2) IDENTIFIERS: Name and Date of confirmed by patient verbally. FALL SCREENING: Has the patient had 2 falls in the last year or 1 fall with injury or currently using an Ambulatory Assistive Device (Walker, Cane, Wheelchair, Crutches, etc.)? No PATIENT GENDER DATA: Female. status: : No status: NO. PATIENT RELEVANT IMPLANT DATA REVIEWED: Not Applicable RADIOLOGY DEPARTMENT: Mammography PERIPHERAL IV DATA: Not applicable SIGNED BY: Chelsea Messer [employer]ulous Cloud August 15, 2021 11:29 AM documented in this encounter [facility] 06-13-2021 History of Presen t illness Narrative Chief Complaint Patient presents with: Established Patient HPI: Symone Pedroza is a 76 year old female who presents here today for follow up breast cancer. Per Dr. Ghotra's previous note: H/o abnormality in the left breast on screening mammogram. She underwent a core needle biopsy. MICROSCOPIC DIAGNOSIS Left breast upper outer quadrant, stereotactic core biopsy: Invasive ductal carcinoma, nuclear grade 1 (0.9 cm in greatest length). ANTIBODY / CLONE RESULT E-Cad (ECH-6) positive CK8 (38whonM11) positive Actin (1A4) negative P63 (7JUL/4A4) negative Calponin-1 (ZK877I) negative CK5-6 (D5 & 1684) negative Ki-67 (30-9) positive, low P53 (DO-7) negative MORPHOMETRIC ANALYSIS ER (clone 6F11) >95%, strong UT (clone 16/1E2) >95%, strong Her-2Neu (clone CB11) 2-3+ IN SITU HYBRIDIZATION (ROB) FOR HER2 Interpretation: Not Amplified HER2 : CEP-17 Ratio: 1.38 Average HER2 Signal: 2.15 Average CEP-17 Signal: 1.55Number of Tumor Cells Scanned: 50 Prior to surgery she was apparently found to have hypertrophic obstructive cardiomyopathy because of a murmur appreciated on exam. However she completely asymptomatic for this. She underwent cardiac evaluation main [facility]. She also underwent a stress echo testing at [facility]. She therefore underwent a left sided mastectomy along with a axillary sentinel lymph node biopsy procedure. 1. Left axilla, sentinel lymph node, excision (A) - One lymph node, negative for metastatic carcinoma (0/1). 2. Breast, left, mastectomy (B) - Invasive ductal carcinoma, histologic grade 2 (See synoptic report and comment). 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 - Focal atypical ductal hyperplasia. - Biopsy site identified. 3. Breast, left, 12 o'clock, radial margin, excision (C) - Negative for carcinoma. 4. Left breast, additional lymph nodes, excision (D) - Three lymph nodes, metastatic carcinoma (0/3). LEFT BREAST MASTECTOMY: Part: B Specimen Laterality: Left Procedure: Mastectomy Wire/Image Guided Localization: Absent Lymph Node Sampling: [place] lymph node(s) Other lymph nodes (eg, supraclavicular or location not identified) Tumor size: Size of largest invasive carcinoma: Greatest dimension of largest focus of invasion >1 mm: 20 mm Tumor Focality: Single focus of invasive carcinoma Macroscopic-Microscopic Extension of tumor: Skin: Not applicable Nipple: Not applicable Skeletal muscle: Not applicable Invasive Carcinoma Margins: Margins uninvolved by invasive carcinoma Distance from closest margin: 3 mm Closest Uninvolved Margin:Radial Distance of invasive carcinoma to deep margin: 10 mm DCIS Margins: DCIS not present in specimen Histologic Type of Invasive Carcinoma: Invasive ductal carcinoma (no special type or not otherwise specified) Histologic Grade: Glandular (Acinar) / Tubular Differentiation: Score 3 Nuclear Pleomorphism: Score 2 Mitotic Rate: Score 1 Overall Grade: Grade II Lymph-Vascular Invasion: Not identified Ductal Carcinoma In Situ: No DCIS is present Lymph Nodes: Total number of nodes examined (sentinel and nonsentinel): 4 Number of sentinel lymph nodes examined: 1 Number of lymph nodes with macrometastases (>2 mm): 0 Number of lymph nodes with micrometastases (>0.2 mm to 2 mm and/or >200 cells): 0 Number of lymph nodes with isolated tumor cells (<= 0.2 mm and <= 200 cells): 0 TNM Descriptor(s): Not applicable Primary Tumor (Invasive Carcinoma) (pT): pT1c Regional Lymph Nodes (pN): Modifier: (sn) Category (pN): pN0 Distant metastasis: Not Applicable Previous therapy: 1) Anastrozole. Began 07/2016. 2) Letrozole. Started 04/2017. Current therapy: 1) Tamoxifen. Began 01/2019. No new concerns today. Appetite: Fine. Energy level: I'm still playing tennis and going to exercise classes. Denies fevers or recent illness. Resp:denies cough or sob Cardiac:denies chest pain/palpitations GI:denies abd pain, n/v, moving bowels regularly :denies dysuria/hematuria Extrem:denies pain Endo:hot flashes I'm just hotter than everyone else. I don't really have flashes. Neuro:denies symptoms of neuropathy Skin:denies rashes/lesions Heme:denies bleeding The ROS is otherwise negative. Past medical history, appointments, medications, allergies reviewed. No changes. EXAM: BP 188/90 Pulse 69 Temp 37.4 C (99.4 F) Ht 151.5 cm (4' 11.65 ) Wt 62.1 kg (137 lb) SpO2 100% BMI 27.07 kg/m APPEARANCE Well appearing, alert, in no acute distress, well-hydrated, well nourished. HEART RRR with normal S1 and S2, no murmurs LUNG clear to auscultation BREAST FEMALE R no mass/nodule, L recon/implant no surrounding mass/nodule LYMPH NODES No cervical lymphadenopathy, No supraclavicular lymphadenopathy and No axillary lymphadenopathy. ABDOMEN bowel sounds normoactive, soft, non-tender, non-distended, without organomegaly or palpable masses EXTREMITIES No edema NEURO Awake, alert and oriented x 3, Normal gait and No involuntary motions. SKIN Skin color, texture, turgor normal, no suspicious rashes or lesions ASSESSMENT/PLAN: 1. Malignant neoplasm of upper-outer quadrant of left breast in female, estrogen receptor positive (HCC) - ICD9: 174.4, V86.0, ICD10: C50.412, Z17.0 (primary diagnosis) pT1c pN0 M0 ER/UT positive, HER2 non-amplified invasive ductal carcinoma the left breast. Oncotype Dx score 18 (11% risk). - No concerning findings on exam. - Tolerating tamoxifen well. - Continue tamoxifen through September 20. Pt. will then complete 5 years of combined AI/tamoxifen therapy. - R mammogram due July 2021. - Follow up in 6 months. - Pt. aware to call office with any questions/concerns. The patient indicates understanding of these issues and agrees with the plan. Discussed case with Dr. Ghotra who agrees with treatment plan. All documentation from previous visit of 12/13/20-Dr. Ghotra/myself was copied and pasted, documentation has been reviewed and edited as necessary for today's visit. Andrea Salas APRN.CECILIA documented in this encounter [facility] documented as of this encounter (statuses as of 06/08/2021) [facility]02-24-2011 History of Past illness Narrative* Problem Noted Date Resolved Date Suture removal 05/16/2010 12/03/2012 Neoplasm of uncertain behavior of skin 8 12/03/2012 Herpes zoster without mention of complication 12/03/2012 Contact dermatitis and other eczema due to drugs and medicines in contact with skin 08/04/2007 12/03/2012 Contact dermatitis and other eczema, due to unspecified cause 08/04/2007 12/03/2012 Open wound(s) (multiple) of unspecified site(s), without mention of complication 08/04/2007 12/03/2012 Sebaceous cyst 06/23/2007 12/03/2012 SEBORRHEIC KERATOSIS: IRRITATED//INFLAMED 200512/03/2012 Other seborrheic keratosis 11/18/200512/03 Other dyschromia 11/18/2005 11/18/2005 ACTINIC DAMAGE///CHR SOLAR SKIN DAMAGE NOS 11/1812/03/2012 Benign neoplasm of skin of trunk, except scrotum 11/18/2005 12/03/2012 Benign neoplasm of scalp and skin of neck 200512/03/2012 Benign neoplasm of skin of upper limb, including shoulder 11/18/2005 12/03/2012 Benign neoplasm of skin of lower limb, including hip 11/18/2005 12/03/2012 Benign neoplasm of skin of o ther and unspecified parts of face 11/18/2005 12/03/2012 Nevus, non-neoplastic 11/18/2005 12/03/2012 SOLAR LENTIGENES///DYSCHROMIA OTHER 11/18/2005 12/03/2012 documented as of this encounter (statuses as of 06/13/2021) [facility] History of Past illness Narrative* Problem Noted Date Resolved Date Suture removal 05/16/2010 12/03/2012 Neoplasm of uncertain behavior of skin 8 12/03/2012 Herpes zoster without mention of complication 12/03/2012 Contact dermatitis and other eczema due to drugs and medicines in contact with skin 08/04/2007 12/03/2012 Contact dermatitis and other eczema, due to unspecified cause 08/04/2007 12/03/2012 Open wound(s) (multiple) of unspecified site(s), without mention of complication 08/04/2007 12/03/2012 Sebaceous cyst 06/23/2007 12/03/2012 SEBORRHEIC KERATOSIS: IRRITATED//INFLAMED 200512/03/2012 Other seborrheic keratosis 11/18/200512/03 Other dyschromia 11/18/2005 11/18/2005 ACTINIC DAMAGE///CHR SOLAR SKIN DAMAGE NOS 11/1812/03/2012 Benign neoplasm of skin of trunk, except scrotum 11/18/2005 12/03/2012 Benign neoplasm of scalp and skin of neck 200512/03/2012 Benign neoplasm of skin of upper limb, including shoulder 11/18/2005 12/03/2012 Benign neoplasm of skin of lower limb, including hip 11/18/2005 12/03/2012 Benign neoplasm of skin of o ther and unspecified parts of face 11/18/2005 12/03/2012 Nevus, non-neoplastic 11/18/2005 12/03/2012 SOLAR LENTIGENES///DYSCHROMIA OTHER 11/18/2005 12/03/2012 documented as of this encounter (statuses as of 07/10/2021) [facility] History of Past illness Narrative* Problem Noted Date Resolved Date Suture removal 05/16/2010 12/03/2012 Neoplasm of uncertain behavior of skin 8 12/03/2012 Herpes zoster without mention of complication 12/03/2012 Contact dermatitis and other eczema due to drugs and medicines in contact with skin 08/04/2007 12/03/2012 Contact dermatitis and other eczema, due to unspecified cause 08/04/2007 12/03/2012 Open wound(s) (multiple) of unspecified site(s), without mention of complication 08/04/2007 12/03/2012 Sebaceous cyst 06/23/2007 12/03/2012 SEBORRHEIC KERATOSIS: IRRITATED//INFLAMED 200512/03/2012 Other seborrheic keratosis 11/18/200512/03 Other dyschromia 11/18/2005 11/18/2005 ACTINIC DAMAGE///CHR SOLAR SKIN DAMAGE NOS 11/1812/03/2012 Benign neoplasm of skin of trunk, except scrotum 11/18/2005 12/03/2012 Benign neoplasm of scalp and skin of neck 200512/03/2012 Benign neoplasm of skin of upper limb, including shoulder 11/18/2005 12/03/2012 Benign neoplasm of skin of lower limb, including hip 11/18/2005 12/03/2012 Benign neoplasm of skin of o ther and unspecified parts of face 11/18/2005 12/03/2012 Nevus, non-neoplastic 11/18/2005 12/03/2012 SOLAR LENTIGENES///DYSCHROMIA OTHER 11/18/2005 12/03/2012 documented as of this encounter (statuses as of 08/16/2021) [facility] History of Past illness Narrative* Problem Noted Date Resolved Date Suture removal 05/16/2010 12/03/2012 Neoplasm of uncertain behavior of skin 8 12/03/2012 Herpes zoster without mention of complication 12/03/2012 Contact dermatitis and other eczema due to drugs and medicines in contact with skin 08/04/2007 12/03/2012 Contact dermatitis and other eczema, due to unspecified cause 08/04/2007 12/03/2012 Open wound(s) (multiple) of unspecified site(s), without mention of complication 08/04/2007 12/03/2012 Sebaceous cyst 06/23/2007 12/03/2012 SEBORRHEIC KERATOSIS: IRRITATED//INFLAMED 200512/03/2012 Other seborrheic keratosis 11/18/200512/03 Other dyschromia 11/18/2005 11/18/2005 ACTINIC DAMAGE///CHR SOLAR SKIN DAMAGE NOS 11/1812/03/2012 Benign neoplasm of skin of trunk, except scrotum 11/18/2005 12/03/2012 Benign neoplasm of scalp and skin of neck 200512/03/2012 Benign neoplasm of skin of upper limb, including shoulder 11/18/2005 12/03/2012 Benign neoplasm of skin of lower limb, including hip 11/18/2005 12/03/2012 Benign neoplasm of skin of o ther and unspecified parts of face 11/18/2005 12/03/2012 Nevus, non-neoplastic 11/18/2005 12/03/2012 SOLAR LENTIGENES///DYSCHROMIA OTHER 11/18/2005 12/03/2012 documented as of this encounter (statuses as of 08/17/2021) [facility] History of Past illness Narrative* Problem Noted Date Resolved Date Suture removal 05/16/2010 12/03/2012 Neoplasm of uncertain behavior of skin 8 12/03/2012 Herpes zoster without mention of complication 12/03/2012 Contact dermatitis and other eczema due to drugs and medicines in contact with skin 08/04/2007 12/03/2012 Contact dermatitis and other eczema, due to unspecified cause 08/04/2007 12/03/2012 Open wound(s) (multiple) of unspecified site(s), without mention of complication 08/04/2007 12/03/2012 Sebaceous cyst 06/23/2007 12/03/2012 SEBORRHEIC KERATOSIS: IRRITATED//INFLAMED 200512/03/2012 Other seborrheic keratosis 11/18/200512/03 Other dyschromia 11/18/2005 11/18/2005 ACTINIC DAMAGE///CHR SOLAR SKIN DAMAGE NOS 11/1812/03/2012 Benign neoplasm of skin of trunk, except scrotum 11/18/2005 12/03/2012 Benign neoplasm of scalp and skin of neck 200512/03/2012 Benign neoplasm of skin of upper limb, including shoulder 11/18/2005 12/03/2012 Benign neoplasm of skin of lower limb, including hip 11/18/2005 12/03/2012 Benign neoplasm of skin of o ther and unspecified parts of face 11/18/2005 12/03/2012 Nevus, non-neoplastic 11/18/2005 12/03/2012 SOLAR LENTIGENES///DYSCHROMIA OTHER 11/18/2005 12/03/2012 documented as of this encounter (statuses as of 08/20/2021) [facility] History of Past illness Narrative* Problem Noted Date Resolved Date Suture removal 05/16/2010 12/03/2012 Neoplasm of uncertain behavior of skin 8 12/03/2012 Herpes zoster without mention of complication 12/03/2012 Contact dermatitis and other eczema due to drugs and medicines in contact with skin 08/04/2007 12/03/2012 Contact dermatitis and other eczema, due to unspecified cause 08/04/2007 12/03/2012 Open wound(s) (multiple) of unspecified site(s), without mention of complication 08/04/2007 12/03/2012 Sebaceous cyst 06/23/2007 12/03/2012 SEBORRHEIC KERATOSIS: IRRITATED//INFLAMED 200512/03/2012 Other seborrheic keratosis 11/18/200512/03 Other dyschromia 11/18/2005 11/18/2005 ACTINIC DAMAGE///CHR SOLAR SKIN DAMAGE NOS 11/1812/03/2012 Benign neoplasm of skin of trunk, except scrotum 11/18/2005 12/03/2012 Benign neoplasm of scalp and skin of neck 200512/03/2012 Benign neoplasm of skin of upper limb, including shoulder 11/18/2005 12/03/2012 Benign neoplasm of skin of lower limb, including hip 11/18/2005 12/03/2012 Benign neoplasm of skin of o ther and unspecified parts of face 11/18/2005 12/03/2012 Nevus, non-neoplastic 11/18/2005 12/03/2012 SOLAR LENTIGENES///DYSCHROMIA OTHER 11/18/2005 12/03/2012 documented as of this encounter (statuses as of 09/18/2021) [facility] History of Past illness Narrative* Problem Noted Date Resolved Date Suture removal 05/16/2010 12/03/2012 Neoplasm of uncertain behavior of skin 8 12/03/2012 Herpes zoster without mention of complication 12/03/2012 Contact dermatitis and other eczema due to drugs and medicines in contact with skin 08/04/2007 12/03/2012 Contact dermatitis and other eczema, due to unspecified cause 08/04/2007 12/03/2012 Open wound(s) (multiple) of unspecified site(s), without mention of complication 08/04/2007 12/03/2012 Sebaceous cyst 06/23/2007 12/03/2012 SEBORRHEIC KERATOSIS: IRRITATED//INFLAMED 200512/03/2012 Other seborrheic keratosis 11/18/200512/03 Other dyschromia 11/18/2005 11/18/2005 ACTINIC DAMAGE///CHR SOLAR SKIN DAMAGE NOS 11/1812/03/2012 Benign neoplasm of skin of trunk, except scrotum 11/18/2005 12/03/2012 Benign neoplasm of scalp and skin of neck 200512/03/2012 Benign neoplasm of skin of upper limb, including shoulder 11/18/2005 12/03/2012 Benign neoplasm of skin of lower limb, including hip 11/18/2005 12/03/2012 Benign neoplasm of skin of o ther and unspecified parts of face 11/18/2005 12/03/2012 Nevus, non-neoplastic 11/18/2005 12/03/2012 SOLAR LENTIGENES///DYSCHROMIA OTHER 11/18/2005 12/03/2012 documented as of this encounter (statuses as of 11/04/2021) [facility] History of Past illness Narrative* Problem Noted Date Resolved Date Suture removal 05/16/2010 12/03/2012 Neoplasm of uncertain behavior of skin 8 12/03/2012 Herpes zoster without mention of complication 12/03/2012 Contact dermatitis and other eczema due to drugs and medicines in contact with skin 08/04/2007 12/03/2012 Contact dermatitis and other eczema, due to unspecified cause 08/04/2007 12/03/2012 Open wound(s) (multiple) of unspecified site(s), without mention of complication 08/04/2007 12/03/2012 Sebaceous cyst 06/23/2007 12/03/2012 SEBORRHEIC KERATOSIS: IRRITATED//INFLAMED 200512/03/2012 Other seborrheic keratosis 11/18/200512/03 Other dyschromia 11/18/2005 11/18/2005 ACTINIC DAMAGE///CHR SOLAR SKIN DAMAGE NOS 11/1812/03/2012 Benign neoplasm of skin of trunk, except scrotum 11/18/2005 12/03/2012 Benign neoplasm of scalp and skin of neck 200512/03/2012 Benign neoplasm of skin of upper limb, including shoulder 11/18/2005 12/03/2012 Benign neoplasm of skin of lower limb, including hip 11/18/2005 12/03/2012 Benign neoplasm of skin of o ther and unspecified parts of face 11/18/2005 12/03/2012 Nevus, non-neoplastic 11/18/2005 12/03/2012 SOLAR LENTIGENES///DYSCHROMIA OTHER 11/18/2005 12/03/2012 documented as of this encounter (statuses as of 11/04/2021) [facility] History of Past illness Narrative* Problem Noted Date Resolved Date Suture removal 05/16/2010 12/03/2012 Neoplasm of uncertain behavior of skin 8 12/03/2012 Herpes zoster without mention of complication 12/03/2012 Contact dermatitis and other eczema due to drugs and medicines in contact with skin 08/04/2007 12/03/2012 Contact dermatitis and other eczema, due to unspecified cause 08/04/2007 12/03/2012 Open wound(s) (multiple) of unspecified site(s), without mention of complication 08/04/2007 12/03/2012 Sebaceous cyst 06/23/2007 12/03/2012 SEBORRHEIC KERATOSIS: IRRITATED//INFLAMED 200512/03/2012 Other seborrheic keratosis 11/18/200512/03 Other dyschromia 11/18/2005 11/18/2005 ACTINIC DAMAGE///CHR SOLAR SKIN DAMAGE NOS 11/1812/03/2012 Benign neoplasm of skin of trunk, except scrotum 11/18/2005 12/03/2012 Benign neoplasm of scalp and skin of neck 200512/03/2012 Benign neoplasm of skin of upper limb, including shoulder 11/18/2005 12/03/2012 Benign neoplasm of skin of lower limb, including hip 11/18/2005 12/03/2012 Benign neoplasm of skin of o ther and unspecified parts of face 11/18/2005 12/03/2012 Nevus, non-neoplastic 11/18/2005 12/03/2012 SOLAR LENTIGENES///DYSCHROMIA OTHER 11/18/2005 12/03/2012 documented as of this encounter (statuses as of 12/13/2021) [facility] History of Past illness Narrative* Problem Noted Date Resolved Date Suture removal 05/16/2010 12/03/2012 Neoplasm of uncertain behavior of skin 8 12/03/2012 Herpes zoster without mention of complication 12/03/2012 Contact dermatitis and other eczema due to drugs and medicines in contact with skin 08/04/2007 12/03/2012 Contact dermatitis and other eczema, due to unspecified cause 08/04/2007 12/03/2012 Open wound(s) (multiple) of unspecified site(s), without mention of complication 08/04/2007 12/03/2012 Sebaceous cyst 06/23/2007 12/03/2012 SEBORRHEIC KERATOSIS: IRRITATED//INFLAMED 200512/03/2012 Other seborrheic keratosis 11/18/200512/03 Other dyschromia 11/18/2005 11/18/2005 ACTINIC DAMAGE///CHR SOLAR SKIN DAMAGE NOS 11/1812/03/2012 Benign neoplasm of skin of trunk, except scrotum 11/18/2005 12/03/2012 Benign neoplasm of scalp and skin of neck 200512/03/2012 Benign neoplasm of skin of upper limb, including shoulder 11/18/2005 12/03/2012 Benign neoplasm of skin of lower limb, including hip 11/18/2005 12/03/2012 Benign neoplasm of skin of o ther and unspecified parts of face 11/18/2005 12/03/2012 Nevus, non-neoplastic 11/18/2005 12/03/2012 SOLAR LENTIGENES///DYSCHROMIA OTHER 11/18/2005 12/03/2012 documented as of this encounter (statuses as of 06/10/2022) [facility] History of Past illness Narrative* Problem Noted Date Resolved Date Suture removal 05/16/2010 12/03/2012 Neoplasm of uncertain behavior of skin 8 12/03/2012 Herpes zoster without mention of complication 12/03/2012 Contact dermatitis and other eczema due to drugs and medicines in contact with skin 08/04/2007 12/03/2012 Contact dermatitis and other eczema, due to unspecified cause 08/04/2007 12/03/2012 Open wound(s) (multiple) of unspecified site(s), without mention of complication 08/04/2007 12/03/2012 Sebaceous cyst 06/23/2007 12/03/2012 SEBORRHEIC KERATOSIS: IRRITATED//INFLAMED 200512/03/2012 Other seborrheic keratosis 11/18/200512/03 Other dyschromia 11/18/2005 11/18/2005 ACTINIC DAMAGE///CHR SOLAR SKIN DAMAGE NOS 11/1812/03/2012 Benign neoplasm of skin of trunk, except scrotum 11/18/2005 12/03/2012 Benign neoplasm of scalp and skin of neck 200512/03/2012 Benign neoplasm of skin of upper limb, including shoulder 11/18/2005 12/03/2012 Benign neoplasm of skin of lower limb, including hip 11/18/2005 12/03/2012 Benign neoplasm of skin of o ther and unspecified parts of face 11/18/2005 12/03/2012 Nevus, non-neoplastic 11/18/2005 12/03/2012 SOLAR LENTIGENES///DYSCHROMIA OTHER 11/18/2005 12/03/2012 documented as of this encounter (statuses as of 08/25/2022) [facility] History of Past illness Narrative* Problem Noted Date Diagnosed Date Resolved Date Suture removal 05/16/2010 12/03/2012 Neoplasm of uncertain behavior of skin 08/04/2007 12/03/2012 Herpes zoster without mention of complication 08/04/1912/03/2012 Contact dermatitis and other eczema due to drugs and medicines in contact with skin 08/04/2007 12/03/2012 Contact dermatitis and other eczema, due to unspecified cause 08/04/2007 12/03/2012 Open wound(s) (multiple) of unspecified site(s), without mention of complication 08/04/2007 12/03/2012 Sebaceous cyst 06/23/2007 12/03/2012 SEBORRHEIC KERATOSIS: IRRITATED//INFLAMED 11/18/2005 12/03/2012 Other seborrheic keratosis 11/18/2005 0 12/03/2012 Other dyschromia 11/18/2005 11/18/2005 ACTINIC DAMAGE///CHR SOLAR SKIN DAMAGE NOS 11/18/2005 12/03/2012 Benign neoplasm of skin of t runk, except scrotum 11/18/2005 12/03/2012 Benign neoplasm of scalp and skin of neck 11/18/2005 12/03/2012 Benign neoplasm of skin of u pper limb, including shoulder 11/18/2005 12/03/2012 Benign neoplasm of skin of l ower limb, including hip 11/18/2005 12/03/2012 Benign neoplasm of skin of o ther and unspecified parts of face 11/18/2005 12/03/2012 Nevus, non-neoplastic 11/18/20052012 SOLAR LENTIGENES///DYSCHROMIA OTHER 11/18/2005 12/03/2012 documented as of this encounter (statuses as of 12/10/2022) [facility] History of Past illness Narrative* Problem Noted Date Diagnosed Date Resolved Date Suture removal 05/16/2010 12/03/2012 Neoplasm of uncertain behavior of skin 08/04/2007 12/03/2012 Herpes zoster without mention of complication 08/04/1912/03/2012 Contact dermatitis and other eczema due to drugs and medicines in contact with skin 08/04/2007 12/03/2012 Contact dermatitis and other eczema, due to unspecified cause 08/04/2007 12/03/2012 Open wound(s) (multiple) of unspecified site(s), without mention of complication 08/04/2007 12/03/2012 Sebaceous cyst 06/23/2007 12/03/2012 SEBORRHEIC KERATOSIS: IRRITATED//INFLAMED 11/18/2005 12/03/2012 Other seborrheic keratosis 11/18/2005 0 12/03/2012 Other dyschromia 11/18/2005 11/18/2005 ACTINIC DAMAGE///CHR SOLAR SKIN DAMAGE NOS 11/18/2005 12/03/2012 Benign neoplasm of skin of t runk, except scrotum 11/18/2005 12/03/2012 Benign neoplasm of scalp and skin of neck 11/18/2005 12/03/2012 Benign neoplasm of skin of u pper limb, including shoulder 11/18/2005 12/03/2012 Benign neoplasm of skin of l ower limb, including hip 11/18/2005 12/03/2012 Benign neoplasm of skin of o ther and unspecified parts of face 11/18/2005 12/03/2012 Nevus, non-neoplastic 11/18/20052012 SOLAR LENTIGENES///DYSCHROMIA OTHER 11/18/2005 12/03/2012 documented as of this encounter (statuses as of 12/11/2022) [facility] History of Past illness Narrative* Problem Noted Date Diagnosed Date Resolved Date Suture removal 05/16/2010 12/03/2012 Neoplasm of uncertain behavior of skin 08/04/2007 12/03/2012 Herpes zoster without mention of complication 08/04/1912/03/2012 Contact dermatitis and other eczema due to drugs and medicines in contact with skin 08/04/2007 12/03/2012 Contact dermatitis and other eczema, due to unspecified cause 08/04/2007 12/03/2012 Open wound(s) (multiple) of unspecified site(s), without mention of complication 08/04/2007 12/03/2012 Sebaceous cyst 06/23/2007 12/03/2012 SEBORRHEIC KERATOSIS: IRRITATED//INFLAMED 11/18/2005 12/03/2012 Other seborrheic keratosis 11/18/2005 0 12/03/2012 Other dyschromia 11/18/2005 11/18/2005 ACTINIC DAMAGE///CHR SOLAR SKIN DAMAGE NOS 11/18/2005 12/03/2012 Benign neoplasm of skin of t runk, except scrotum 11/18/2005 12/03/2012 Benign neoplasm of scalp and skin of neck 11/18/2005 12/03/2012 Benign neoplasm of skin of u pper limb, including shoulder 11/18/2005 12/03/2012 Benign neoplasm of skin of l ower limb, including hip 11/18/2005 12/03/2012 Benign neoplasm of skin of o ther and unspecified parts of face 11/18/2005 12/03/2012 Nevus, non-neoplastic 11/18/20052012 SOLAR LENTIGENES///DYSCHROMIA OTHER 11/18/2005 12/03/2012 documented as of this encounter (statuses as of 01/25/2023) [facility] [place] [facility] Diagnosis Malignant neoplasm of upper-outer quadrant of left breast in female, estrogen receptor positive (HCC)- Primary Encounter for screening mammogram for high-risk patient [facility] [place] [facility] Diagnosis HOCM (hypertrophic obstructive cardiomyopathy) (HCC)- Primary Hypertrophic obstructive cardiomyopathy [facility] [place] [facility] Diagnosis Malignant neoplasm of upper-outer quadrant of left breast in female, estrogen receptor positive (HCC) Encounter for screening mammogram for high-risk patient documented in this encounter [facility]* Diagnosis Hx of breast reconstruction- Primary Breast replaced by other means History of breast cancer Personal history of malignant neoplasm of breast documented in this encounter [facility]* Diagnosis HOCM (hypertrophic obstructive cardiomyopathy) (HCC) Hypertrophic obstructive cardiomyopathy documented in this encounter [facility]* Diagnosis HOCM (hypertrophic obstructive cardiomyopathy) (HCC)- Primary Hypertrophic obstructive cardiomyopathy documented in this encounter [facility]* Diagnosis Malignant neoplasm of upper-outer quadrant of left breast in female, estrogen receptor positive (HCC) Encounter for screening mammogram for high-risk patient documented in this encounter [facility]* Diagnosis Personal history of breast cancer- Primary Personal history of malignant neoplasm of breast Encounter for screening mammogram for high-risk patient documented in this encounter [facility]* Diagnosis Hx of breast reconstruction Breast replaced by other means Breast implant status History of mastectomy, left documented in this encounter [facility]* Diagnosis Malignant neoplasm of upper-outer quadrant of left breast in female, estrogen receptor positive (HCC) Encounter for screening mammogram for high-risk patient [facility] Diagnostic Procedure Only (Routine) - Authorized Specialty Diagnoses / Procedures Referred By Leny kat Referred To Contact [facility] Diagnoses Malignant neoplasm of upper-outer quadrant of left breast in female, estrogen receptor positive (HCC) Encounter for screening mammogram for high-risk patient Procedures FRENCH SCREENING W VASHTI SCREENING DIGITAL BREAST TOMOSYNTHESIS BI SCREENING MAMMOGRAPHY BI 2-VIEW BREAST INC Andrea Hazel APRN.CNP [address] [place] [address] [facility] [address] [place] [id number] Referral ID Status Reason Start Date Expiration Date Visits Requested Visits Authorized [id number] Authorized Auto-Generat ed Referral 06/13/2021 07/13/2022 1 1 [facility] Outpatient Procedure (Routine) - Authorized Specialty Diagnoses / Procedures Referred By Leny t Referred To Contact [facility] Diagnoses HOCM (hypertrophic obstructive cardiomyopathy) (HCC) Procedures ECHO ECHO TTHRC R-T 2D W/WOM-MODE COMPL SPEC&COLR D Christian Coon MD [address] [facility] [place] [address] [id number] Referral ID Status Reason Start Date Expiration Date Visits Requested Visits Authorized Authorized Auto-Generat ed Referral 07/10/2021 07/10/2022 1 1 * Outpatient Procedure (Routine) - Authorized Specialty Diagnoses / Procedures Referred By Leny kat Referred To Contact [facility] Diagnoses HOCM (hypertrophic obstructive cardiomyopathy) (HCC) Procedures ECG COMPLETE ECG ROUTINE ECG W/LEAST 12 LDS W/I&R Christian Coon MD [address] [place] [address] [address] Referral ID Status Reason Start Date Expiration Date Visits Requested Visits Authorized [id number] Authorized Auto-Generat ed Referral 07/10/2021 07/10/2022 1 1 [place] for referral (narrative)* Diagnostic Procedure Only (Routine) - Closed Specialty Diagnoses / Procedures Referred By Leny kat Referred To Contact [facility] Diagnoses Malignant neoplasm of upper-outer quadrant of left breast in female, estrogen receptor positive (HCC) Encounter for screening mammogram for high-risk patient Procedures FRENCH SCREENING W VASHTI SCREENING BREAST DGTL VASHTI UNI/BILAT ADD ON SCREENING MAMMOGRAPHY BI 2-VIEW BREAST INC Andrea Hazel, KNOT BORER.DRAMA TEACHER [address] [place] [address] [facility] [address] [place] [address] Referral ID Status Reason Start Date Expiration Date V isits Requested Visits Authorized Closed Auto-Generate d Referral 12/13/2020 01/12/2022 1 1 [place] for referral (narrative)* Diagnostic Procedure Only (Routine) - Authorized Specialty Diagnoses / Procedures Referred By Contac t Referred To Contact [facility] Diagnoses Malignant neoplasm of upper-outer quadrant of left breast in female, estrogen receptor positive (HCC) Encounter for screening mammogram for high-risk patient Procedures FRENCH SCREENING W VASHTI SCREENING DIGITAL BREAST TOMOSYNTHESIS BI SCREENING MAMMOGRAPHY BI 2-VIEW BREAST INC Andrea Hazel APRN.DRAMA TEACHER [address] [place] [address] [facility] [address] [place] [address] Referral ID Status Reason Start Date Expiration Date Visits Requested Visits Authorized [id number] Authorized Auto-Generat ed Referral 12/12/2021 01/11/2023 1 1 [place] for referral (narrative)* Outpatient Procedure (Routine) - Authorized Specialty Diagnoses / Procedures Referred By Contac t Referred To Contact [facility] Diagnoses HOCM (hypertrophic obstructive cardiomyopathy) (HCC) Procedures ECHO ECHO TTHRC R-T 2D W/WOM-MODE COMPL SPEC&COLR D Christian Coon MD [address] [place] [address] [facility] [place] [address] [place] [address] Referral ID Status Reason Start Date Expiration Date Visits Requested Visits Authorized [id number] Authorized Auto-Generat ed Referral 06/09/2022 06/09/2023 1 1 * Outpatient Procedure (Routine) - Authorized Specialty Diagnoses / Procedures Referred By Contac t Referred To Contact [facility] Diagnoses HOCM (hypertrophic obstructive cardiomyopathy) (HCC) Procedures ECG COMPLETE ECG ROUTINE ECG W/LEAST 12 LDS W/I&R Christian Coon MD [address] [place] [address] [facility] [place] [address] [place] [address] Referral ID Status Reason Start Date Expiration Date Visits Requested Visits Authorized [id number] Authorized Auto-Generat ed Referral 06/09/2022 06/09/2023 1 1 [place] for referral (narrative)* Diagnostic Procedure Only (Routine) - Authorized Specialty Diagnoses / Procedures Referred By Contac t Referred To Contact [facility] Diagnoses Personal history of breast cancer Encounter for screening mammogram for high-risk patient Procedures FRENCH SCREENING W VASHTI SCREENING DIGITAL BREAST TOMOSYNTHESIS BI SCREENING MAMMOGRAPHY BI 2-VIEW BREAST INC Andrea Hazel, KENA.DRAMA TEACHER [address] [place] [address] [facility] [address] [place] [phone] Referral ID Status Reason Start Date Expiration Date Visits Requested Visits Authorized [id number] Authorized Auto-Generat ed Referral 08/25/2022 09/24/2023 1 1 [place] for referral (narrative)* Diagnostic Procedure Only (Routine) - Closed Specialty Diagnoses / Procedures Referred By Leny Referred To Contact [facility] Diagnoses Hx of breast reconstruction Breast implant status History of mastectomy, left Procedures US BREAST LTD LEFT US BREAST UNI REAL TIME WITH IMAGE LIMITED Edu Valdovinos MD [address] [place] [address] [facility] [address] [place] [phone] Referral ID Status Reason Start Date Expiration Date V isits Requested Visits Authorized [id number] Closed Auto-Generate d Referral 12/10/2022 01/09/2024 1 1 [place] for referral (narrative)* Diagnostic Procedure Only (Routine) - Closed Specialty Diagnoses / Procedures Referred By Contac t Referred To Contact [facility] Diagnoses Malignant neoplasm of upper-outer quadrant of left breast in female, estrogen receptor positive (HCC) Encounter for screening mammogram for high-risk patient Procedures FRENCH SCREENING W VASHTI SCREENING DIGITAL BREAST TOMOSYNTHESIS BI SCREENING MAMMOGRAPHY BI 2-VIEW BREAST INC [facility] Andrea [place]as APRN.DRAMA TEACHER [address] [place] [address] [facility] [address] [place] [address] Referral ID Status Reason Start Date Expiration Date V isits Requested Visits Authorized [id number] Closed Auto-Generate d Referral 12/12/2021 01/11/2023 1 1 [place] for visit Narrative* Diagnostic Procedure Only (Routine) - Closed Specialty Diagnoses / Procedures Referred By Leny kat Referred To Contact [facility] Diagnoses Malignant neoplasm of upper-outer quadrant of left breast in female, estrogen receptor positive (HCC) Encounter for screening mammogram for high-risk patient Procedures FRENCH SCREENING W VASHTI SCREENING BREAST DGTL VASHTI UNI/BILAT ADD ON SCREENING MAMMOGRAPHY BI 2-VIEW BREAST INC Andrea Hazel APRN.DRAMA TEACHER [address] [place] [address] [facility] [address] [place] [address] Referral ID Status Reason Start Date Expiration Date V isits Requested Visits Authorized [id number] Closed Auto-Generate d Referral 12/13/2020 01/12/2022 1 1 [place] for visit Narrative* Diagnostic Procedure Only (Routine) - Closed Specialty Diagnoses / Procedures Referred By Leny kat Referred To Contact [facility] Diagnoses Malignant neoplasm of upper-outer quadrant of left breast in female, estrogen receptor positive (HCC) Encounter for screening mammogram for high-risk patient Procedures FRENCH SCREENING W VASHTI SCREENING DIGITAL BREAST TOMOSYNTHESIS BI SCREENING MAMMOGRAPHY BI 2-VIEW BREAST INC [facility] Andrea [place]as APRN.DRAMA TEACHER [address] [place] [address] [facility] [address] [place] [facility] [place] [address] Referral ID Status Reason Start Date Expiration Date V isits Requested Visits Authorized [id number] Closed Auto-Generate d Referral 12/12/2021 01/11/2023 1 1 [facility] Advance Directives Documents on File Type Date Recorded Patient Vertical Lathe Operator Expl anation Advance Directive(s) 07/15/2016 5:52 AM sc anned Advance Directive(s) 07/15/2016 5:53 AM Advance Directive(s) 07/10/2016 11:46 AM Advance Directive(s) 07/07/2016 4:05 PM Documents on File Type Date Recorded Patient Vertical Lathe Operator Expl anation Advance Directive(s) 07/15/2016 5:52 AM sc anned Advance Directive(s) 07/15/2016 5:53 AM Advance Directive(s) 07/10/2016 11:46 AM Advance Directive(s) 07/07/2016 4:05 PM Documents on File Type Date Recorded Patient Vertical Lathe Operator Expl anation Advance Directive(s) 06/25/2021 12:41 PM Advance Directive(s) 07/15/2016 5:52 AM sc anned Advance Directive(s) 07/15/2016 5:53 AM Advance Directive(s) 07/10/2016 11:46 AM Advance Directive(s) 07/07/2016 4:05 PM Documents on File Type Date Recorded Patient Vertical Lathe Operator Expl anation Advance Directive(s) 06/25/2021 12:41 PM Advance Directive(s) 07/15/2016 5:52 AM sc anned Advance Directive(s) 07/15/2016 5:53 AM Advance Directive(s) 07/10/2016 11:46 AM Advance Directive(s) 07/07/2016 4:05 PM Documents on File Type Date Recorded Patient Vertical Lathe Operator Expl anation Advance Directive(s) 07/15/2016 5:53 AM Documents on File Type Date Recorded Patient Vertical Lathe Operator Expl anation Advance Directive(s) 07/15/2016 5:53 AM Summary Purpose Family History No Family History Records FoundNo Family History Records Found Additional Source Comments Source Comments (unrecognize d section and content) In the event this informatio n is protected by the Federal Confidentiality of Alcohol and Drug Abuse Patient Records regulations: The Federal rules restrict any use of the information to criminally investigate or prosecute any alcohol or drug abuse patient.[facility] the event this information is protected by the Federal Confidentiality of Alcohol and Drug Abuse Patient Records regulations: The Federal rules restrict any use of the information to criminally investigate or prosecute any alcohol or drug abuse patient.[facility] the event this information is protected by the Federal Confidentiality of Alcohol and Drug Abuse Patient Records regulations: The Federal rules restrict any use of the information to criminally investigate or prosecute any alcohol or drug abuse patient.[facility] the event this information is protected by the Federal Confidentiality of Alcohol and Drug Abuse Patient Records regulations: The Federal rules restrict any use of the information to criminally investigate or prosecute any alcohol or drug abuse patient.[facility] the event this information is protected by the Federal Confidentiality of Alcohol and Drug Abuse Patient Records regulations: The Federal rules restrict any use of the information to criminally investigate or prosecute any alcohol or drug abuse patient.[facility] the event this information is protected by the Federal Confidentiality of Alcohol and Drug Abuse Patient Records regulations: The Federal rules restrict any use of the information to criminally investigate or prosecute any alcohol or drug abuse patient.[facility] the event this information is protected by the Federal Confidentiality of Alcohol and Drug Abuse Patient Records regulations: The Federal rules restrict any use of the information to criminally investigate or prosecute any alcohol or drug abuse patient.[facility] the event this information is protected by the Federal Confidentiality of Alcohol and Drug Abuse Patient Records regulations: The Federal rules restrict any use of the information to criminally investigate or prosecute any alcohol or drug abuse patient.[facility] the event this information is protected by the Federal Confidentiality of Alcohol and Drug Abuse Patient Records regulations: The Federal rules restrict any use of the information to criminally investigate or prosecute any alcohol or drug abuse patient.[facility] the event this information is protected by the Federal Confidentiality of Alcohol and Drug Abuse Patient Records regulations: The Federal rules restrict any use of the information to criminally investigate or prosecute any alcohol or drug abuse patient.[facility] the event this information is protected by the Federal Confidentiality of Alcohol and Drug Abuse Patient Records regulations: The Federal rules restrict any use of the information to criminally investigate or prosecute any alcohol or drug abuse patient.[facility] the event this information is protected by the Federal Confidentiality of Alcohol and Drug Abuse Patient Records regulations: The Federal rules restrict any use of the information to criminally investigate or prosecute any alcohol or drug abuse patient.[facility] the event this information is protected by the Federal Confidentiality of Alcohol and Drug Abuse Patient Records regulations: The Federal rules restrict any use of the information to criminally investigate or prosecute any alcohol or drug abuse patient.[facility] the event this information is protected by the Federal Confidentiality of Alcohol and Drug Abuse Patient Records regulations: The Federal rules restrict any use of the information to criminally investigate or prosecute any alcohol or drug abuse patient.[facility] the event this information is protected by the Federal Confidentiality of Alcohol and Drug Abuse Patient Records regulations: The Federal rules restrict any use of the information to criminally investigate or prosecute any alcohol or drug abuse patient.[facility] the event this information is protected by the Federal Confidentiality of Alcohol and Drug Abuse Patient Records regulations: The Federal rules restrict any use of the information to criminally investigate or prosecute any alcohol or drug abuse patient.[facility] Reason for Visit (unrecogniz ed section and content) Reason Comments Established Patient Reason Comments Results Reason Comments Established Patient Follow-Up Reason Comments IV Medication Administration Echo with a myl nitrate Specialty Diagnoses / Procedures Referred By Contac t Referred To Contact [facility] Diagnoses HOCM (hypertrophic obstructive cardiomyopathy) (HCC) Procedures ECHO ECHO TTHRC R-T 2D W/WOM-MODE COMPL SPEC&COLR D Christian Coon MD [address] [place] [address] [facility] [place] [id number] Referral ID Status Reason Start Date Expiration Date V isits Requested Visits Authorized [id number] Closed Auto-Generate d Referral 07/10/2021 07/10/2022 1 1 Reason Comments Establish Care Specialty Diagnoses / Procedures Referred By Contac t Referred To Contact [facility] Diagnoses Malignant neoplasm of upper-outer quadrant of left breast in female, estrogen receptor positive (HCC) Encounter for screening mammogram for high-risk patient Procedures FRENCH SCREENING W VASHTI SCREENING DIGITAL BREAST TOMOSYNTHESIS BI SCREENING MAMMOGRAPHY BI 2-VIEW BREAST INC Andrea Hazel, KENA.DRAMA TEACHER [address] [place] [address] [facility] Imaging [address] [place] [phone] Referral ID Status Reason Start Date Expiration Date V isits Requested Visits Authorized [id number] Closed Auto-Generate d Referral 06/13/2021 07/13/2022 1 1 Reason Comments PHOTOS TAKEN Reason Comments Radiology US Specialty Diagnoses / Procedures Referred By Contac t Referred To Contact [facility] Diagnoses Hx of breast reconstruction Breast implant status History of mastectomy, left Procedures US BREAST LTD LEFT US BREAST UNI REAL TIME WITH IMAGE LIMITED Edu Valdovinos MD [address] [place] [address] [facility] Imaging [address] [place] [phone] Referral ID Status Reason Start Date Expiration Date V isits Requested Visits Authorized [id number] Closed Auto-Generate d Referral 12/10/2022 01/09/2024 1 1 Care Teams (unrecognized sec tion and content) Rayon Coner Relationship Specialty Start Date End Date Mike Reynolds MD [address] [place], [place] [id number] PCP - General 03/09/09 Michelle Shearer RN Specialty Curtain Hemmer Automatic Oncology 05/13/17 Christian Coon MD [address] [place], [place] [id number] Primary Staff Physician Cardiology 06/08/18 Rayon Coner Relationship Specialty Start Date End Date Mike Reynolds MD [address] [place], [place] [id number] PCP - General 03/09/09 Michelle Shearer RN Specialty Curtain Hemmer Automatic Oncology 05/13/17 Christian Coon MD [address] [place], [place] [id number] Primary Staff Physician Cardiology 06/08/18 Rayon Coner Relationship Specialty Start Date End Date Mike Reynolds MD [address] [place], [place] [id number] PCP - General 03/09/09 Michelle Shearer RN Specialty Curtain Hemmer Automatic Oncology 05/13/17 Christian Coon MD [address] [place], [place] [id number] Primary Staff Physician Cardiology 06/08/18 Rayon Coner Relationship Specialty Start Date End Date Mike Reynolds MD [address] [place], [place] [phone] PCP - General 03/09/09 Michelle Shearer RN Specialty Curtain Hemmer Automatic Oncology 05/13/17 Christian Coon MD [address] [facility] [place] [place] [id number] Primary Staff Physician Cardiology 06/08/18 Rayon Coner Relationship Specialty Start Date End Date Mike Reynolds MD [address] [place], [place] [address] PCP - General 03/09/09 Michelle Shearer RN Specialty Curtain Hemmer Automatic Oncology 05/13/17 Christian Coon MD [address] [place], [place] [id number] Primary Staff Physician Cardiology 06/08/18 Rayon Coner Relationship Specialty Start Date End Date Mike Reynolds MD [address] [place], [place] [phone] PCP - General 03/09/09 Michelle Shearer RN Specialty Curtain Hemmer Automatic Oncology 05/13/17 Christian Coon MD [address] [place], [place] [phone] Primary Staff Physician Cardiology 06/08/18 Rayon Coner Relationship Specialty Start Date End Date Mike Reynolds MD [address] [place], [place] [phone] PCP - General 03/09/09 Michelle Shearer RN Specialty Curtain Hemmer Automatic Oncology 05/13/17 Christian Coon MD [address] [place] [address] Primary Staff Physician Cardiology 06/08/18 Rayon Coner Relationship Specialty Start Date End Date Mike Reynolds MD [address] [place] [place], [place] [phone] PCP - General 03/09/09 Michelle Shearer RN Specialty Curtain Hemmer Automatic Oncology 05/13/17 Christian Coon MD [address] [facility] [place] [address] Primary Staff Physician Cardiology 06/08/18 Rayon Coner Relationship Specialty Start Date End Date Mike Reynolds MD [address] [place], [place] [id number] PCP - General 03/09/09 Michelle Shearer RN Specialty Curtain Hemmer Automatic Oncology 05/13/17 Christian Coon MD [address] [place], [place] [id number] Primary Staff Physician Cardiology 06/08/18 Rayon Coner Relationship Specialty Start Date End Date Mike Reynolds MD [address] [place] [address] PCP - General 03/09/09 Michelle Shearer RN Specialty Curtain Hemmer Automatic Oncology 05/13/17 Christian Coon MD [address] [place], [place] [phone] Primary Staff Physician Cardiology 06/08/18 Rayon Coner Relationship Specialty Start Date End Date Mike Reynolds MD [address] [place] [address] PCP - General 03/09/09 Michelle Shearer RN Specialty Curtain Hemmer Automatic Oncology 05/13/17 Christian Coon MD [address] [place] [address] Primary Staff Physician Cardiology 06/08/18 Self Primary Staff Physician Family Medicine 11/28/22 Rayon Coner Relationship Specialty Start Date End Date Mike Reynolds MD [address] [place], [place] [address] PCP - General 03/09/09 Michelle Shearer RN Specialty Curtain Hemmer Automatic Oncology 05/13/17 Christian Coon MD [address] [place] [address] Primary Staff Physician Cardiology 06/08/18 Self Primary Staff Physician Family Medicine 11/28/22 Rayon Coner Relationship Specialty Start Date End Date Mike Reynolds MD [address] [place] [address] PCP - General 03/09/09 Michelle Shearer RN Specialty Curtain Hemmer Automatic Oncology 05/13/17 Christian Coon MD [address] [facility] [place] [place] [phone] Primary Staff Physician Cardiology 06/08/18 INFORMATION SOURCE (unrecogn ized section and content) DATE CREATED AUTHOR [facility]08[facility]2023 [facility] FOR RECORDS PERTAINING TO PATIENTS WHO ARE OR HAVE BEEN ENROLLED IN A CHEMICAL DEPENDENCY/SUBSTANCEABUSE PROGRAM, SOME INFORMATION MAY BE OMITTED. This clinical summary was aggregated from multiple sources. Caution should be exercised in using it in the provision of clinical care. This summary normalizes information from multiple sources, and as a consequence, information in this document may materially change the coding, format and clinical context of patient data. In addition, data may be omitted in some cases. CLINICAL DECISIONS SHOULD BE BASED ON THE PRIMARY CLINICAL RECORDS. [facility]. provides no warranty or guarantee of the accuracy or completeness of information in this document.
[2023-04-15 10:49] LABS: Absolute Lymphocyte Count 2.34 X10^3/uL (0.83-4.51); Absolute Neutrophil Count 2.6 X10^3/uL (2.0-7.7); Basophil# 0.04 X10^3/uL; Basophil% 0.7 % (0-1); Eosinophil# 0.14 X10^3/uL; Eosinophils% 2.5 % (0-5); Hematocrit 40.9 % (37-47); Hemoglobin 12.8 g/dL (12.0-15.0); Lymphocyte # 2.34 X10^3/ul (0.83-4.51); Lymphocyte % 42.2 % (19-41); Mean Corp Hgb Conc 31.3 g/dL (32-36); Mean Corpuscular Hgb 27.6 pg (27.0-32.0); Mean Corpuscular Volume 88.1 fL (81-99); Mean Platelet Vol. 11.2 fl (6.2-12.0); Monocyte# 0.41 X10^3/uL; Monocyte% 7.4 % (0-10); NRBC Flagged by Analyzer 0 % (0-5); Platelet Count 252 K/mm3 (150-450); RBC Distribution Width CV 13.4 % (11.6-14.6); RBC Distribution Width SD 43.5 fl (35.1-43.9); Red Blood Count 4.64 M/mm3 (4.2-5.4); White Blood Count 5.5 K/mm3 (4.4-11.0)
[2023-04-15 11:05] LABS: Vitamin D,25 Hydroxy 40.5 ng/mL
[2023-04-15 11:38] LABS: ALB/GLOB Ratio 1.1 RATIO (0.9-2.4); AST(SGOT) 24 U/L (15-37); Alanine Aminotransfer ALT/SGPT 24 U/L (13-56); Albumin, Serum 3.7 g/dL (3.2-5.0); Alkaline Phosphatase 72 U/L (45-117); Anion Gap 6 (5-15); BUN 15 mg/dL (7-18); BUN/Creat Ratio 17.2 RATIO (10-20); Chloride 102 mmol/L (98-107); Cholesterol 290 mg/dL (200); Creatinine, Serum 0.87 mg/dL (0.55-1.02); EST Glomerular Filtration Rate 67 mL/min (>60); Est Glom Filt Rate - Afr Amer 81 mL/min (>60); Globulin 3.3 g/dL (2.2-4.2); Glucose 84 mg/dL (74-106); High Density Lipoprotein 52 mg/dL; Potassium 4.5 mmol/L (3.5-5.1); Sodium Level 135 mmol/L (136-145); T4 Free Direct 1.17 ng/dL (0.76-1.46); Thyroid Stim Hormone (TSH) 1.85 uIU/mL (0.358-3.74); Triglycerides 191 mg/dL; Very Low Density Lipoprotein 38 mg/dL (5-40)
== END | disposition home or self-care (01) ==
LOC: MFPLAB 07:59
PROVIDERS: PCP Family Medicine; Visit Provider Family Medicine
DX: E55.9 Vitamin D deficiency, unspecified (principal); I10 Essential (primary) hypertension; E78.00 Pure hypercholesterolemia, unspecified; E03.9 Hypothyroidism, unspecified
CPT/HCPCS: 36415; 80053; 80061; 82306; 84439; 84443; 85025

== ENCOUNTER → 2023-05-21 | Outpatient (CLI) | payer MEDICARE, SELFPAY ==
[2023-05-21 15:34] LABS: Hematocrit 40.8 % (37-47); Hemoglobin 13.5 g/dL (12.0-15.0); Mean Corp Hgb Conc 33.1 g/dL (32-36); Mean Corpuscular Hgb 28.8 pg (27.0-32.0); Mean Corpuscular Volume 87.2 fL (81-99); Mean Platelet Vol. 11.6 fl (6.2-12.0); Platelet Count 284 K/mm3 (150-450); RBC Distribution Width CV 13.4 % (11.6-14.6); Red Blood Count 4.68 M/mm3 (4.2-5.4); White Blood Count 8.8 K/mm3 (4.4-11.0)
[2023-05-21 16:27] LABS: Anion Gap 6 (5-15); BUN 16 mg/dL (7-18); BUN/Creat Ratio 17.4 RATIO (10-20); Calcium,Total 9.1 mg/dL (8.5-10.1); Chloride 101 mmol/L (98-107); Creatinine, Serum 0.92 mg/dL (0.55-1.02); EST Glomerular Filtration Rate 63 mL/min (>60); Est Glom Filt Rate - Afr Amer 76 mL/min (>60); Glucose 86 mg/dL (74-106); Magnesium 2.3 mg/dL (1.6-2.6); Potassium 4.2 mmol/L (3.5-5.1); Sodium Level 134 mmol/L (136-145); Thyroid Stim Hormone (TSH) 1.06 uIU/mL (0.358-3.74)
--- OUTSIDE RECORDS SUMMARY | 2023-05-21 21:08 | XMS RPT_ITS | CCD ---
Author Name Unknown Address [address] [facility] [address] [place] [address] Organization [facility] Care Team Providers Care [employer] Assistant Teacher Name Role Phone Mike Reynolds MD Primary Care Provider Manfred RN, Michelle Unavailable Unavailable Christian Coon MD Unavailable Mike Reynolds MD Primary Care Provider Manfred RN, Michelle Unavailable Unavailable Christian Coon MD Unavailable Self Unavailable Unavailable REDD COONIND Y Referring Unavailable MIKE REYNOLDS Primary Care Unavailabl ANDREA Argueta Attending Unavailable ANDREA SALAS Referring Unavailable MIKE REYNOLDS Primary Care UnavailANDREA Sim Referring Unavailable MIKE REYNOLDS Primary Care Unavailabl e EDU VALDOVINOS Referring Unavailable MIKE REYNOLDS Primary Care Unavailabl EDU Luevano Attending Unavailable MIKE REYNOLDS Primary Care Unavailabl e JAYMIE, CHRISTIAN Y Attending Unavailable REDD COONIND Y Referring Unavailable MIKE REYNOLDS Primary Care Unavailabl REDD SellersIND Y Referring Unavailable MIKE REYNOLDS Primary Care Unavailabl e Allergies Allergy Classification Reported Allergen(s) Allergy Type Date of Onset Reaction(s) Facility (17 sources) anastrozole; Translations: [ANASTROZOLE] Drug Allergy 8 Other: See Comments [facility] Work Phone: (17 sources) Azithromycin; Translations: [AZITHROMYCIN] Drug Allergy 6 Intolerance [facility] (17 sources) Bacitracin / Polymyxin B; Translations: [BACITRACIN-POLY MYXIN B] Drug Allergy 8 Rash [facility] (7 sources) HMG-CoA reductase inhibitor; Translations: [UKGAEFW-WDF-ATT REDUCTASE INHIBITORS] Drug Intolerance 7 Other: See Comments [facility] (17 sources) nickel; Translations: [NICKEL] Drug Allergy 0 Intolerance [facility] (7 sources) Penicillins; Translations: [PENICILLINS] Drug Allergy 6 Hives [facility] (17 sources) Pravastatin; Translations: [PRAVASTATIN] Drug Allergy 7 Other: See Comments [facility] (17 sources) Sulfonamides (Antibiotic); Translations: [SULFA (SULFONAMIDE ANTIBIOTICS)] Drug Intolerance 6 GI Upset [facility] (10 sources) HMG-CoA reductase inhibitor Drug Intolerance 7 Other: See Comments [facility] (10 sources) Penicillins Drug Allergy [address] [facility] Medications Current Medications Medication Drug Class(es) Dates [...] lewis 08-25-2022 13:24-0400 Body height 152.4 cm Campbell Salas UNDERCOLLAR MAKER.DRUG ABUSE PROGRAM COORDINATOR Work Phone: [facility] 08-25-2022 13:24-0400 Body temperature 97.11 [degF] Andrea Salas UNDERCOLLAR MAKER.DRUG ABUSE PROGRAM COORDINATOR Work Phone: [facility] 08-25-2022 13:24-0400 Body weight 62.6 kg Campbell Salas UNDERCOLLAR MAKER.DRUG ABUSE PROGRAM COORDINATOR Work Phone: [facility] 08-25-2022 13:24-0400 Diastolic blood pressure 100 mm[Hg] Campbell Salas UNDERCOLLAR MAKER.DRUG ABUSE PROGRAM COORDINATOR Work Phone: [facility] 08-25-2022 13:24-0400 Heart rate 90 /min Andrea Salas UNDERCOLLAR MAKER.DRUG ABUSE PROGRAM COORDINATOR Work Phone: [facility] 08-25-2022 13:24-0400 SaO2% (BldA) [Mass fraction] 96 % Campbell Salas UNDERCOLLAR MAKER.DRUG ABUSE PROGRAM COORDINATOR Work Phone: [facility] 08-25-2022 13:24-0400 Systolic blood pressure 141 mm[Hg] Campbell Salas UNDERCOLLAR MAKER.DRUG ABUSE PROGRAM COORDINATOR Work Phone: [facility] 12-12-2021 11:14-0400 Body height 151 cm Campbell Salas UNDERCOLLAR MAKER.DRUG ABUSE PROGRAM COORDINATOR Work Phone: [facility] 12-12-2021 11:14-0400 Body temperature 97 [degF] Andrea Salas UNDERCOLLAR MAKER.DRUG ABUSE PROGRAM COORDINATOR Work Phone: [facility] 12-12-2021 11:14-0400 Body weight 62.14 kg Andrea Salas UNDERCOLLAR MAKER.DRUG ABUSE PROGRAM COORDINATOR Work Phone: [facility] 12-12-2021 11:14-0400 Diastolic blood pressure 92 mm[Hg] Andrea Salas UNDERCOLLAR MAKER.DRUG ABUSE PROGRAM COORDINATOR Work Phone: [facility] 12-12-2021 11:14-0400 Heart rate 62 /min Andrea Salas UNDERCOLLAR MAKER.DRUG ABUSE PROGRAM COORDINATOR Work Phone: [facility] 12-12-2021 11:14-0400 Systolic blood pressure 140 mm[Hg] Andrea Salas UNDERCOLLAR MAKER.DRUG ABUSE PROGRAM COORDINATOR Work Phone: [facility] 11-04-2021 15:58-0400 Body height 152.4 cm Christian Coon MD Work Phone: [facility] 11-04-2021 15:58-0400 Body weight 58.79 kg Christian Coon MD Work Phone: [facility] 11-04-2021 15:58-0400 Diastolic blood pressure 80 mm[Hg] Christian Coon MD Work Phone: [facility] 11-04-2021 15:58-0400 Heart rate 61 /min Christian Coon MD Work Phone: [facility] 11-04-2021 15:58-0400 SaO2% (BldA) [Mass fraction] 97 % Christian Coon MD Work Phone: [facility] 11-04-2021 15:58-0400 Systolic blood pressure 168 mm[Hg] Christian Coon MD Work Phone: [facility] 06-13-2021 14:29-0400 Diastolic blood pressure 90 mm[Hg] Campbell Salas UNDERCOLLAR MAKER.DRUG ABUSE PROGRAM COORDINATOR Work Phone: [facility] 06-13-2021 14:29-0400 Systolic blood pressure 188 mm[Hg] Campbell Salas UNDERCOLLAR MAKER.DRUG ABUSE PROGRAM COORDINATOR Work Phone: [facility] 06-13-2021 13:46-0400 Body height 151.5 cm Andrea Salas UNDERCOLLAR MAKER.DRUG ABUSE PROGRAM COORDINATOR Work Phone: [facility] 06-13-2021 13:46-0400 Body temperature 99.39 [degF] Andrea Salas UNDERCOLLAR MAKER.DRUG ABUSE PROGRAM COORDINATOR Work Phone: [facility] 06-13-2021 13:46-0400 Body weight 62.14 kg Campbell Salas UNDERCOLLAR MAKER.DRUG ABUSE PROGRAM COORDINATOR Work Phone: [facility] 06-13-2021 13:46-0400 Heart rate 69 /min Andrea Salas UNDERCOLLAR MAKER.DRUG ABUSE PROGRAM COORDINATOR Work Phone: [facility] 06-13-2021 13:46-0400 SaO2% (BldA) [Mass fraction] 100 % Andrea Salas APRN.DRUG ABUSE PROGRAM COORDINATOR Work Phone: [facility] Encounters Encounter Date Encounter Type Care Provider Facility Start: 01-06-2023 End: 01-06-2023 ambulatory EDU VALDOVINOS Facility:[facility] Start: 01-06-2023 End: 01-06-2023 Subsequent hospital visit by physician [facility] Work Phone: Radiology Procedures Date Procedure Procedure Detail Performing Clinician Start: 01-06-2023 Us breast uni real t juan with image limited Edu Valdovinos MD Work Phone: Start: 08-21-2022 Screening digital br east tomosynthesis bi Andrea Salas UNDERCOLLAR MAKER.DRUG ABUSE PROGRAM COORDINATOR Work Phone: Start: 11-04-2021 Echo tthrc r-t 2d w/wom-mode compl spec&colr d Christian Coon MD Work Phone: Start: 08-15-2021 FRENCH SCREENING W VASHTI Da emani Salas UNDERCOLLAR MAKER.DRUG ABUSE PROGRAM COORDINATOR Work Phone: Start: 06-25-2021 Colonoscopy Christian turner MD Work Phone: Start: 12-13-2020 Adult depression scr eening assessment Abdelrahman Pizano MD Work Phone: Plan of Treatment Date Care Activity Detail Author Start: 06-26-2031 Colonoscopy COLONOSCOPY [facility] Start: 06-26-2031 COLORECTAL CANCER SCREENING COLORECTAL CANCER SCREENING [facility] Start: 04-15-2031 Urine microalbumin profile [facility] Start: 11-21-2022 Covid-19 Vaccine ( season) Covid-19 Vaccine ( season) [facility] Start: 11-21-2022 Influenza vaccination Influenza Vaccine (#1) [facility] Start: 05-17-2022 Covid-19 Vaccine (6 - Moderna series) Covid-19 Vaccine (6 - Moderna series) [facility] Start: 03-23-2022 ADVANCE DIRECTIVE DISCUSSION ADVANCE DIRECTIVE DISCUSSION [facility] Start: 03-23-2022 DEPRESSION ASSESSMENT DEPRESSION ASSESSMENT [facility] Start: 12-13-2021 Adult depression screening assessment DEPRESSION SCREENING [facility] Start: 11-21-2021 Influenza vaccination INFLUENZA (#1) [facility] Start: 03-23-2021 ADVANCE DIRECTIVE DISCUSSION ADVANCE DIRECTIVE DISCUSSION [facility] Start: 03-08-2021 COVID-19 VACCINE (5 - Booster for Moderna series) COVID-19 VACCINE (5 - Booster for Moderna series) [facility] Start: 11-21-2020 Influenza vaccination INFLUENZA (#1) [facility] Start: 10-14-2020 COVID-19 VACCINE (3 - Booster for Moderna series) COVID-19 VACCINE (3 - Booster for Moderna series) [facility] Start: 07-18-2019 DIABETES SCREEN DIABETES SCREEN [facility] Start: 07-18-2019 Diabetes Screening Diabetes Screening [facility] Start: 03-08-2016 PNEUMOCOCCAL: 65+ (3 - PPSV23 or PCV20) PNEUMOCOCCAL: 65+ (3 - PPSV23 or PCV20) [facility] Start: 08-27-2010 SHINGRIX VACCINE (2 of 3) SHINGRIX VACCINE (2 of 3) [facility] Start: 02-07-2009 BONE DENSITY BONE DENSITY [facility] Start: 02-07-2009 Bone Density Screening Bone Density Screening [facility] Start: 2004 RSV Vaccine (1 - 1-dose 60+ series) RSV Vaccine (1 - 1-dose 60+ series) [facility] Start: 02-07-1989 COLOGUARD (FIT-DNA) COLOGUARD (FIT-DNA) [facility] Start: 02-07-[address] COLONOGRAPHY [facility] Start: 02-07-1989 FECAL OCCULT BLOOD FECAL OCCULT BLOOD [facility] Start: 02-07-1989 SIGMOIDOSCOPY SIGMOIDOSCOPY [facility] Start: 02-07-1963 Urine microalbumin profile DTAP,TDAP,TD (1 - Tdap) [facility] Start: 02-07-1962 ANNUAL PCP TEAM CHRONIC DISEASE VISIT ANNUAL PCP TEAM CHRONIC DISEASE VISIT [facility] Start: 02-07-1962 HEPATITIS C SCREENING HEPATITIS C SCREENING [facility] End: 07-10-2022 ECG COMPLETE ECG COMPLETE ECG Routine HOCM (hypertrophic obstructive cardiomyopathy) (HCC) 1 Occurrences starting 07/10/2021 until 07/10/2022 [facility] Work Phone: Immunizations Immunization Date Immunization Notes Care Provider Miguel montoya 12-11-2021 influenza virus vacc ine, unspecified formulation Edu Valdovinos MD Work Phone: [facility] 04-15-2021 tetanus toxoid, redu kaia diphtheria toxoid, and acellular pertussis vaccine, adsorbed Campbell Salas UNDERCOLLAR MAKER.DRUG ABUSE PROGRAM COORDINATOR Work Phone: [facility] 12-21-2020 COVID-19 vaccine, fu ll dose (MODERNA) Andrea Salas UNDERCOLLAR MAKER.DRUG ABUSE PROGRAM COORDINATOR Work Phone: [facility] 12-21-2020 influenza, injectabl e, quadrivalent, preservative free Andrea Salas UNDERCOLLAR MAKER.DRUG ABUSE PROGRAM COORDINATOR Work Phone: [facility] 05-17-2020 COVID-19 vaccine, fu ll dose (MODERNA) Abdelrahman Pizano MD Work Phone: [facility] 04-19-2020 COVID-19 vaccine, fu ll dose (MODERNA) Abdelrahman Pizano MD Work Phone: [facility] 12-16-2019 influenza, injectabl e, quadrivalent, preservative free Campbell Salas UNDERCOLLAR MAKER.DRUG ABUSE PROGRAM COORDINATOR Work Phone: [facility] 04-12-2019 zoster vaccine recombinant Campbell Salas UNDERCOLLAR MAKER.DRUG ABUSE PROGRAM COORDINATOR Work Phone: [facility] 02-04-2019 zoster vaccine recombinant Andrea Salas UNDERCOLLAR MAKER.DRUG ABUSE PROGRAM COORDINATOR Work Phone: [facility] 12-20-2018 influenza, seasonal, injectable Andrea Salas UNDERCOLLAR MAKER.DRUG ABUSE PROGRAM COORDINATOR Work Phone: [facility] 12-15-2017 influenza, injectabl e, quadrivalent, contains preservative Campbell Salas UNDERCOLLAR MAKER.DRUG ABUSE PROGRAM COORDINATOR Work Phone: [facility] 12-19-2016 influenza, injectabl e, quadrivalent, contains preservative Campbell Salas UNDERCOLLAR MAKER.DRUG ABUSE PROGRAM COORDINATOR Work Phone: [facility] 01-18-2016 influenza, injectabl e, quadrivalent, contains preservative Campbell Salas UNDERCOLLAR MAKER.DRUG ABUSE PROGRAM COORDINATOR Work Phone: [facility] 03-08-2015 pneumococcal conjuga te vaccine, 13 valent Campbell Salas UNDERCOLLAR MAKER.DRUG ABUSE PROGRAM COORDINATOR Work Phone: [facility] 01-22-2015 influenza, seasonal, injectable Campbell Salas UNDERCOLLAR MAKER.DRUG ABUSE PROGRAM COORDINATOR Work Phone: [facility] 01-24-2014 influenza, seasonal, injectable Andrea Salas UNDERCOLLAR MAKER.DRUG ABUSE PROGRAM COORDINATOR Work Phone: [facility] 01-13-2013 influenza, high dose seasonal, preservative-free Andrea Salas UNDERCOLLAR MAKER.DRUG ABUSE PROGRAM COORDINATOR Work Phone: [facility] 01-13-2013 influenza, seasonal, injectable Campbell Salas UNDERCOLLAR MAKER.DRUG ABUSE PROGRAM COORDINATOR Work Phone: [facility] 12-12-2011 influenza, seasonal, injectable Andrea Salas UNDERCOLLAR MAKER.DRUG ABUSE PROGRAM COORDINATOR Work Phone: [facility] 02-20-2011 tetanus toxoid, redu kaia diphtheria toxoid, and acellular pertussis vaccine, adsorbed Campbell Salas UNDERCOLLAR MAKER.DRUG ABUSE PROGRAM COORDINATOR Work Phone: [facility] 01-30-2011 influenza, seasonal, injectable Campbell Salas UNDERCOLLAR MAKER.DRUG ABUSE PROGRAM COORDINATOR Work Phone: [facility] 07-02-2010 zoster vaccine, live Abdelrahman Pizano MD Work Phone: [facility] 02-19-2010 pneumococcal polysaccharide vaccine, 23 valent Abdelrahman Pizano MD Work Phone: [facility] 01-03-2010 influenza, seasonal, injectable Campbell Salas UNDERCOLLAR MAKER.DRUG ABUSE PROGRAM COORDINATOR Work Phone: [facility] 12-15-2008 influenza, seasonal, injectable Campbell Salas UNDERCOLLAR MAKER.DRUG ABUSE PROGRAM COORDINATOR Work Phone: [facility] 07-14-2006 tetanus toxoid, redu kaia diphtheria toxoid, and acellular pertussis vaccine, adsorbed Campbell Salas UNDERCOLLAR MAKER.DRUG ABUSE PROGRAM COORDINATOR Work Phone: [facility] Payers Date Payer Category Payer Unknown [id number] 2017 Medicare MMO MEDICARE MMO MEDADVANTAGE PPO [id number] 2017-Present [phone] [address] [place] [address] PPO [id number] 2017 Medicare [id number] Social History Date Type Detail Facility Start: 11-28-2022 Tobacco smoking stat us KYIS Never smoked tobacco [facility] Work Phone: Start: 12-13-2020 End: 11-04-2021 Alcohol intake Ex-drinker (finding) [facility] Start: 1945 Sex Assigned At Female [facility] Start: 06-03-2021 End: 11-04-2021 Exposure to SARS-CoV-2 (event) Not sure [facility] History of tobacco use Passive smoker [facility] Start: 11-28-2022 Tobacco use and exposure Smokeless tobacco non-user [facility] Start: 12-10-2022 Alcohol intake Current drinke r of alcohol (finding) [facility] Start: 08-21-2022 End: 12-10-2022 History of Social function [facility] Start: 08-21-2022 End: 12-10-2022 Tobacco use panel [facility] Adult Depression Screening Assessment 0 [facility] Start: 08-12-2018 Gender identity Identifies as female gender (finding) [facility] Start: 12-13-2019 Sexual orientation Heterosexual (henrietta topete) [facility] Medical Equipment Procedure Code Equipment Code Equipment Origin al Text Equipment Identifier Dates Matrix Alloderm Thick Acellular Dermis 16x8cm Tissue Allograft Regenerative - [id number] Start: 07-15-2016 Implant Memoryge l Cohesive I 14.1cm P4.3cm Moderate Plus Profile Round - [id number] Start: 07-15-2016 Clinical Notes 05-16-2010 to 01-06-2023 Angeline Garcia RDMS - 01/06/2023 1:00 PM EDAna Cook - 12/10/2022 4:14 PM EDAna Cook - 12/10/2022 2:34 PM EDTAndrea Salas APRN.[facility] - 08/25/2022 1:26 PM EDT Note Date & Type Note Facility 01-06-2023 Note HNO ID: [id number] Author: Angeline Garcia RDMS Service: ? Author Type: Diesel Fleet Mechanic Type: Progress Notes Filed: 01/06/2023 3:18 PM [...] RDMS RVT January 06, 2023 3:17 PM [facility] 01-06-2023 History of Presen t illness [...] 2023 3:17 PM documented in this encounter [facility] 12-10-2022 Note HNO ID: [id number] Author: Ana Bob Service: ? Author Type: ? Type: Progress Notes Filed: 12/10/2022 4:14 PM Note Text: DATE OF PHOTOS: 12/10/2022 Body Part: Parker Bob December 10, 2022 4:14 PM [facility] 12-10-2022 Note HNO ID: [id number] Author: Ana Bob Service: ? Author Type: ? Type: Progress Notes Filed: 12/10/2022 2:34 PM Note Text: DATE OF PHOTOS: 12/10/2022 Body Part: Parker Bob December 10, 2022 2:34 PM [facility] 12-10-2022 History of Presen t illness Narrative DATE OF PHOTOS: 12/10/2022 Body Part: Parker Bob December 10, 2022 4:14 PM documented in this encounter [facility] 12-10-2022 History of Presen t illness Narrative DATE OF PHOTOS: 12/10/2022 Body Part: Parker Bob December 10, 2022 2:34 PM documented in this encounter [facility] 12-10-2022 Note HNO ID: [id number] Author: Edu Valdovinos MD Service: ? Author [...] w/ Dr. Beltrán on 07/15/2016 Implant Info: [place] MEMORY GEL COHESIVE I 14.1CM P4.3CM MODERATE [...] Pravastatin Other: See Comments Comment:loss of balance Yjpqshi-Ncj-Bka Red* Other: See Comments Comment:Muscle pains. Tried [...] 40 mg by mouth once daily. Fish Oil-Miami-3 Fatty Acids (FISH OIL) 340-1,000 mg cap [...] PE: Left breast (more content not included)... [facility] 12-06-2022 Note HNO ID: [id number] Author: Christian Coon MD Service: ? Author Type: Physician Type: Progress Notes Filed: 12/06/2022 4:28 PM Note Text: [facility] [place] Riccardo Hamm Department of Cardiovascular Medicine SECTION OF CARDIOVASCULAR IMAGING OUTPATIENT VISIT DATE November 28, 2022 OUTPATIENT VISIT TYPE ESTABLISHED PRIMARY CARE PHYSICIAN: Mike eRynolds MD ([facility]) [address] [place] [id number] CHIEF COMPLAINT: F/U HISTORY OF PRESENT ILLNESS: [...] Pravastatin Other: See Comments loss of balance Zhwnqtt-Vqm-Pqx Red* Other: See Comments Muscle pains. Tried [...] ER (TOPROL XL) 50 mg 24 hr [id number] mg in the morning and 75 mg in the eveningDisp: Rfl: ubidecarenone (COENZYME Q10 ORAL)Take 40 mg by mouth once daily.Disp: Rfl: Fish Oil-[place]-3 Fatty Acids 340-1,000 mg capTake 2 capsules [...] have a normal (more content not included)... [facility] 08-25-2022 Note HNO ID: [id number] Author: Andrea Salas APRN.DRUG ABUSE PROGRAM COORDINATOR Service: ? Author Type: Nurse Practitioner Type: [...] / CLONE RESULT E-Cad (ECH-6) positive CK8 ([id number]) positive Actin (1A4) negative P63 (7JUL/4A4) negative Calponin-1 (CN012S) negative CK5-6 (D5 AND 1684) negative Ki-67 (30-9) positive, low P53 (DO-7) negative MORPHOMETRIC ANALYSIS ER (clone 6F11) >95%, strong AL (clone 16/1E2) >95%, strong Her-2Neu (clone CB11) [...] for this. She underwent cardiac evaluation main [facility]. She also underwent a stress echo testing at [facility]. She therefore underwent a left sided mastectomy [...] Wire/Image Guided Localization: Absent Lymph Node Sampling: [place] lymph node(s) Other lymph nodes (eg, supraclavicular [...] No supraclavicular ly (more content not included)... [facility] 08-25-2022 History of Presen t illness Narrative Chief Complaint Patient presents with: Establish Care HPI: Symnoe Pedroza is a 77 year old female [...] / CLONE RESULT E-Cad (ECH-6) positive CK8 (17ucuuU43) positive Actin (1A4) negative P63 (7JUL/4A4) negative Calponin-1 (PL560A) negative CK5-6 (D5 & 1684) negative Ki-67 (30-9) positive, low P53 (DO-7) negative MORPHOMETRIC ANALYSIS ER (clone 6F11) >95%, strong AL (clone 16/1E2) >95%, strong Her-2Neu (clone CB11) [...] this. She underwent cardiac evaluation main campus [facility]. She also underwent a stress echo testing at [facility]. She therefore underwent a left sided mastectomy [...] Wire/Image Guided Localization: Absent Lymph Node Sampling: [place] lymph node(s) Other lymph nodes (eg, supraclavicular [...] ICD10: Z85.3 (primary diagnosis) pT1c pN0 M0 ER/AL positive, HER2 non-amplified invasive ductal carcinoma the [...] Andrea Salas APRN.CECILIA documented in this encounter [facility] 08-21-2022 Note HNO ID: [id number] Author: RT Radha(R) Service: ? Author Type: [...] RT Radha(R) August 21, 2022 1:26 PM [facility] 08-21-2022 History of Presen t illness [...] 2022 1:26 PM documented in this encounter [facility] 06-09-2022 Note HNO ID: [id number] Author: Desi Webb Service: ? Author Type: ? Type: Progress Notes Filed: 06/09/2022 5:54 PM Note Text: [facility] 06-09-2022 History of Presen t illness Narrative documented in this encounter [facility] 12-12-2021 History of Presen t illness Narrative Chief Complaint Patient presents with: [facility] Care HPI: Symone Pedroza is a 76 [...] / CLONE RESULT E-Cad (ECH-6) positive CK8 (68zyjlP76) positive Actin (1A4) negative P63 (7JUL/4A4) negative Calponin-1 (YR042K) negative CK5-6 (D5 & 1684) negative Ki-67 (30-9) positive, low P53 (DO-7) negative MORPHOMETRIC ANALYSIS ER (clone 6F11) >95%, strong AL (clone 16/1E2) >95%, strong Her-2Neu (clone CB11) [...] for this. She underwent cardiac evaluation main [facility]. She also underwent a stress echo testing at [facility]. She therefore underwent a left sided mastectomy [...] Wire/Image Guided Localization: Absent Lymph Node Sampling: [place] lymph node(s) Other lymph nodes (eg, supraclavicular [...] V86.0, ICD10: C50.412, Z17.0 pT1c pN0 M0 ER/AL positive, HER2 non-amplified invasive ductal carcinoma the [...] Andrea Salas APRN.CECILIA documented in this encounter [facility] 11-04-2021 History of Presen t illness Narrative Images from the original note were not included. [facility] [place] Riccardo Hamm Department of Cardiovascular Medicine SECTION OF CARDIOVASCULAR IMAGING OUTPATIENT VISIT DATE November 04, 2021 OUTPATIENT VISIT TYPE ESTABLISHED PRIMARY CARE PHYSICIAN: Mike Reynolds MD ([facility]) [address] [place] [address] CHIEF COMPLAINT: F/U HISTORY OF PRESENT ILLNESS: [...] Pravastatin Other: See Comments loss of balance Ooqmdxc-Doy-Kjj Red* Other: See Comments Muscle pains. Tried [...] mg by mouth once daily.^Disp: ^Rfl: Fish Oil-[place]-3 Fatty Acids 340-1,000 mg cap^Take 2 capsules [...] others. CONTACT INFORMATION: Christian Coon MD, [place], [facility], FA, [facility] Nigel Valles Endowed Chair in CV Medicine, lode miner, [facility] Director, Clinical Operations, Director HCM Center, Project Drilling Engineer, [facility] Department of Cardiovascular Medicine, [facility] [place], Desk J1-5, [facility], [address] [place] [address] Office , Office Appointments: [phone] extension [phone] documented in this encounter [facility] 11-04-2021 History of Presen t illness Narrative 11/04/2021 3:40 PM Order reviewed by nurse:yes Medications: Amyl Nitrite - dosage 0.3 ml via inhalation Reaction: No documented in this encounter [facility] 09-17-2021 History of Presen t illness Narrative [...] Pravastatin Other: See Comments Comment:loss of balance Qnzkoqa-Kth-Jtl Red* Other: See Comments Comment:Muscle pains. Tried [...] 40 mg by mouth once daily. Fish Oil-[place]-3 Fatty Acids (FISH OIL) 340-1,000 mg cap [...] Past Histories independently gathered by the clinical academic support coordinator and the remaining scribed note accurately describes my personal service to the patient. I spent 30 minutes in the visit, with more than 50% of the total epty-kp-xkcv time of the visit in counseling / coordination of care. She is doing well. She is satisfied with the results. She is 5 years out from surgery. She wants to wait until next year to do the breast US for implant rupture screening. Edu Valdovinos MD documented in this encounter [facility] 08-20-2021 Miscellaneous Notes Spoke with patient, advising below. Patient stated understanding. Lisa Carrasco Please inform pt. that her mammogram looks good. Follow up as scheduled. Thank you. Andrea Salas APRN.CNP documented in this encounter [facility] 08-15-2021 Miscellaneous Notes August 15, 2021 PID: [id number] Symone Pedroza [address] [place] [address] Dear Ms. Pedroza, We are pleased to [...] report will be kept on file at [facility] as part of your permanent medical record and are available for your continuing care. Thank you for allowing us to help in meeting your health care needs. Sincerely, Dr. Alberts Interpreting Radiologist [facility] (Normal over 40) documented in this encounter [facility] 08-15-2021 History of Presen t illness Narrative [...] DATA: Not applicable SIGNED BY: Chelsea Messer Venuu August 15, 2021 11:29 AM documented in this encounter [facility] 06-13-2021 History of Presen t illness Narrative [...] / CLONE RESULT E-Cad (ECH-6) positive CK8 ([id number]) positive Actin (1A4) negative P63 (7JUL/4A4) negative Calponin-1 (TQ824E) negative CK5-6 (D5 & 1684) negative Ki-67 (30-9) positive, low P53 (DO-7) negative MORPHOMETRIC ANALYSIS ER (clone 6F11) >95%, strong AL (clone 16/1E2) >95%, strong Her-2Neu (clone CB11) [...] for this. She underwent cardiac evaluation main [facility]. She also underwent a stress echo testing at [facility]. She therefore underwent a left sided mastectomy [...] Wire/Image Guided Localization: Absent Lymph Node Sampling: [place] lymph node(s) Other lymph nodes (eg, supraclavicular [...] C50.412, Z17.0 (primary diagnosis) pT1c pN0 M0 ER/AL positive, HER2 non-amplified invasive ductal carcinoma the [...] Andrea Salas APRN.CECILIA documented in this encounter [facility] documented as of this encounter (statuses as of 06/08/2021) [facility] History of Past illness Narrative* Problem Noted [...] of this encounter (statuses as of 06/13/2021) [facility] of [facility] illness Narrative* Problem Noted [...] of this encounter (statuses as of 07/10/2021) [facility] of [facility] illness Narrative* Problem Noted [...] of this encounter (statuses as of 08/16/2021) [facility] of [facility] illness Narrative* Problem Noted [...] of this encounter (statuses as of 08/17/2021) [facility] of [facility] illness Narrative* Problem Noted [...] of this encounter (statuses as of 08/20/2021) [facility] of [facility] illness Narrative* Problem Noted [...] of this encounter (statuses as of 09/18/2021) [facility] of [facility] illness Narrative* Problem Noted [...] of this encounter (statuses as of 11/04/2021) [facility] of [facility] illness Narrative* Problem Noted [...] of this encounter (statuses as of 11/04/2021) [facility] of [facility] illness Narrative* Problem Noted [...] of this encounter (statuses as of 12/13/2021) [facility] of [facility] Narrative* Problem Noted [...] of this encounter (statuses as of 06/10/2022) [facility] Narrative* Problem Noted [...] of this encounter (statuses as of 08/25/2022) [facility] of [facility] illness Narrative* Problem Noted [...] of this encounter (statuses as of 12/10/2022) [facility] of [facility] illness Narrative* Problem Noted [...] of this encounter (statuses as of 12/11/2022) [facility] of [facility] illness Narrative* Problem Noted [...] of this encounter (statuses as of 01/25/2023) [facility] [place] [facility] Diagnosis Malignant neoplasm of upper-outer quadrant of left breast in female, estrogen receptor positive (HCC)- Primary Encounter for screening mammogram for high-risk patient [facility] [place] [facility] Diagnosis HOCM (hypertrophic obstructive cardiomyopathy) (HCC)- Primary Hypertrophic obstructive cardiomyopathy [facility] [place] [facility] Diagnosis Malignant neoplasm of upper-outer quadrant of left breast in female, estrogen receptor positive (HCC) Encounter for screening mammogram for high-risk patient documented in this encounter [facility] note* Diagnosis Hx of breast reconstruction- Primary Breast replaced by other means History of breast cancer Personal history of malignant neoplasm of breast documented in this encounter [facility] note* Diagnosis HOCM (hypertrophic obstructive cardiomyopathy) (HCC) Hypertrophic obstructive cardiomyopathy documented in this encounter [facility] note* Diagnosis HOCM (hypertrophic obstructive cardiomyopathy) (HCC)- Primary Hypertrophic obstructive cardiomyopathy documented in this encounter [facility] note* Diagnosis Malignant neoplasm of upper-outer quadrant of left breast in female, estrogen receptor positive (HCC) Encounter for screening mammogram for high-risk patient documented in this encounter [facility] note* Diagnosis Personal history of breast cancer- Primary Personal history of malignant neoplasm of breast Encounter for screening mammogram for high-risk patient documented in this encounter [facility] note* Diagnosis Hx of breast reconstruction Breast replaced by other means Breast implant status History of mastectomy, left documented in this encounter [facility] note* Diagnosis Malignant neoplasm of upper-outer quadrant of left breast in female, estrogen receptor positive (HCC) Encounter for screening mammogram for high-risk patient [facility] Diagnostic Procedure Only (Routine) [...] INC Andrea Hazel APRN.CNP [address] [place] [address] [facility] [address] [place] [phone] Referral ID Status Reason Start Date Expiration Date Visits Requested Visits Authorized [id number] Authorized Auto-Generat ed Referral 06/13/2021 07/13/2022 1 1 [facility] Outpatient Procedure (Routine) - Authorized Specialty Diagnoses / Procedures Referred By Leny t Referred To Contact [facility] Diagnoses HOCM (hypertrophic obstructive cardiomyopathy) (HCC) Procedures ECHO ECHO TTHRC R-T 2D W/WOM-MODE COMPL SPEC&COLR D Christian Coon MD [address] [place] [address] [address] Referral ID Status Reason Start Date Expiration Date Visits Requested Visits Authorized Authorized Auto-Generat ed Referral 07/10/2021 07/10/2022 1 1 * Outpatient Procedure (Routine) - Authorized Specialty Diagnoses / Procedures Referred By Leny kat Referred To Contact [facility] Diagnoses HOCM (hypertrophic obstructive cardiomyopathy) (HCC) Procedures ECG COMPLETE ECG ROUTINE ECG W/LEAST 12 LDS W/I&R Christian Coon MD [address] [place] [address] [address] Referral ID Status Reason Start Date Expiration Date Visits Requested Visits Authorized [id number] Authorized Auto-Generat ed Referral 07/10/2021 07/10/2022 1 1 [facility] for referral (narrative)* Diagnostic Procedure Only (Routine) [...] MAMMOGRAPHY BI 2-VIEW BREAST INC Andrea Hazel, UNDERCOLLAR MAKER.DRUG ABUSE PROGRAM COORDINATOR [address] [place] [address] [facility] [address] [place] [address] Referral ID Status Reason Start Date Expiration Date V isits Requested Visits Authorized Closed Auto-Generate d Referral 12/13/2020 01/12/2022 1 1 [facility] for referral (narrative)* Diagnostic Procedure Only (Routine) - Authorized Specialty Diagnoses / Procedures Referred By Contac t Referred To Contact [facility] Diagnoses Malignant neoplasm of upper-outer quadrant of left breast in female, estrogen receptor positive (HCC) Encounter for screening mammogram for high-risk patient Procedures FRENCH SCREENING W VASHTI SCREENING DIGITAL BREAST TOMOSYNTHESIS BI SCREENING MAMMOGRAPHY BI 2-VIEW BREAST INC Andrea Hazel APRN.DRUG ABUSE PROGRAM COORDINATOR [address] [place] [address] [facility] [address] [place] [address] Referral ID Status Reason Start Date Expiration Date Visits Requested Visits Authorized [id number] Authorized Auto-Generat ed Referral 12/12/2021 01/11/2023 1 1 [facility] for referral (narrative)* Outpatient Procedure (Routine) - Authorized Specialty Diagnoses / Procedures Referred By Contac t Referred To Contact [facility] Diagnoses HOCM (hypertrophic obstructive cardiomyopathy) (HCC) Procedures ECHO ECHO TTHRC R-T 2D W/WOM-MODE COMPL SPEC&COLR D Christian Coon MD [address] [place] [address] [facility] [place] [address] [place] [address] Referral ID Status Reason Start Date Expiration Date Visits Requested Visits Authorized [id number] Authorized Auto-Generat ed Referral 06/09/2022 06/09/2023 1 1 * Outpatient Procedure (Routine) - Authorized Specialty Diagnoses / Procedures Referred By Contac t Referred To Contact [facility] Diagnoses HOCM (hypertrophic obstructive cardiomyopathy) (HCC) Procedures ECG COMPLETE ECG ROUTINE ECG W/LEAST 12 LDS W/I&R Christian Coon MD [address] [place] [address] [facility] [place] [address] [place] [address] Referral ID Status Reason Start Date Expiration Date Visits Requested Visits Authorized [id number] Authorized Auto-Generat ed Referral 06/09/2022 06/09/2023 1 1 [facility] for referral (narrative)* Diagnostic Procedure Only (Routine) - Authorized Specialty Diagnoses / Procedures Referred By Contac t Referred To Contact [facility] Diagnoses Personal history of breast cancer Encounter for screening mammogram for high-risk patient Procedures FRENCH SCREENING W VASHTI SCREENING DIGITAL BREAST TOMOSYNTHESIS BI SCREENING MAMMOGRAPHY BI 2-VIEW BREAST INC Andrea Hazel, KENA.DRUG ABUSE PROGRAM COORDINATOR [address] [place] [address] [facility] [address] [place] [phone] Referral ID Status Reason Start Date Expiration Date Visits Requested Visits Authorized [id number] Authorized Auto-Generat ed Referral 08/25/2022 09/24/2023 1 1 [facility] for referral (narrative)* Diagnostic Procedure Only (Routine) - Closed Specialty Diagnoses / Procedures Referred By Leny Referred To Contact [facility] Diagnoses Hx of breast reconstruction Breast implant status History of mastectomy, left Procedures US BREAST LTD LEFT US BREAST UNI REAL TIME WITH IMAGE LIMITED Edu Valdovinos MD [address] [place] [address] [facility] [address] [place] [phone] Referral ID Status Reason Start Date Expiration Date V isits Requested Visits Authorized [id number] Closed Auto-Generate d Referral 12/10/2022 01/09/2024 1 1 [facility] for referral (narrative)* Diagnostic Procedure Only (Routine) - Closed Specialty Diagnoses / Procedures Referred By Contac t Referred To Contact [facility] Diagnoses Malignant neoplasm of upper-outer quadrant of left breast in female, estrogen receptor positive (HCC) Encounter for screening mammogram for high-risk patient Procedures FRENCH SCREENING W VASHTI SCREENING DIGITAL BREAST TOMOSYNTHESIS BI SCREENING MAMMOGRAPHY BI 2-VIEW BREAST INC [facility] Andrea Salas APRN.DRUG ABUSE PROGRAM COORDINATOR [address] [place] [address] [facility] [address] [place] [address] Referral ID Status Reason Start Date Expiration Date V isits Requested Visits Authorized [id number] Closed Auto-Generate d Referral 12/12/2021 01/11/2023 1 1 [facility] for visit Narrative* Diagnostic Procedure Only (Routine) [...] MAMMOGRAPHY BI 2-VIEW BREAST INC Andrea Hazel APRN.DRUG ABUSE PROGRAM COORDINATOR [address] [place] [address] [facility] [address] [place] [address] Referral ID Status Reason Start Date Expiration Date V isits Requested Visits Authorized [id number] Closed Auto-Generate d Referral 12/13/2020 01/12/2022 1 1 [facility] for visit Narrative* Diagnostic Procedure Only (Routine) - Closed Specialty Diagnoses / Procedures Referred By Leny kat Referred To Contact [facility] Diagnoses Malignant neoplasm of upper-outer quadrant of left breast in female, estrogen receptor positive (HCC) Encounter for screening mammogram for high-risk patient Procedures FRENCH SCREENING W VASHTI SCREENING DIGITAL BREAST TOMOSYNTHESIS BI SCREENING MAMMOGRAPHY BI 2-VIEW BREAST INC [facility] Andrea Salas APRN.DRUG ABUSE PROGRAM COORDINATOR [address] [place] [address] [facility] [address] [place] [address] Referral ID Status Reason Start Date Expiration Date V isits Requested Visits Authorized [id number] Closed Auto-Generate d Referral 12/12/2021 01/11/2023 1 1 [facility] Advance Directives Documents on File Type Date Recorded Patient Workforce Development Specialist Expl anation Advance Directive(s) 07/15/2016 5:52 AM sc anned Advance Directive(s) 07/15/2016 5:53 AM Advance Directive(s) 07/10/2016 11:46 AM Advance Directive(s) 07/07/2016 4:05 PM Documents on File Type Date Recorded Patient Workforce Development Specialist Expl anation Advance Directive(s) 07/15/2016 5:52 AM sc anned Advance Directive(s) 07/15/2016 5:53 AM Advance Directive(s) 07/10/2016 11:46 AM Advance Directive(s) 07/07/2016 4:05 PM Documents on File Type Date Recorded Patient Workforce Development Specialist Expl anation Advance Directive(s) 06/25/2021 12:41 PM Advance Directive(s) 07/15/2016 5:52 AM sc anned Advance Directive(s) 07/15/2016 5:53 AM Advance Directive(s) 07/10/2016 11:46 AM Advance Directive(s) 07/07/2016 4:05 PM Documents on File Type Date Recorded Patient Workforce Development Specialist Expl anation Advance Directive(s) 06/25/2021 12:41 PM Advance Directive(s) 07/15/2016 5:52 AM sc anned Advance Directive(s) 07/15/2016 5:53 AM Advance Directive(s) 07/10/2016 11:46 AM Advance Directive(s) 07/07/2016 4:05 PM Documents on File Type Date Recorded Patient Workforce Development Specialist Expl anation Advance Directive(s) 07/15/2016 5:53 AM Documents on File Type Date Recorded Patient Workforce Development Specialist Expl anation Advance Directive(s) 07/15/2016 5:53 AM [...] or prosecute any alcohol or drug abuse patient.[facility] the event this information is protected by the Federal Confidentiality of Alcohol and Drug Abuse Patient Records regulations: The Federal rules restrict any use of the information to criminally investigate or prosecute any alcohol or drug abuse patient.[facility] System[facility] the event this information is protected by the Federal Confidentiality of Alcohol and Drug Abuse Patient Records regulations: The Federal rules restrict any use of the information to criminally investigate or prosecute any alcohol or drug abuse patient.[facility] System[facility] the event this information is protected by the Federal Confidentiality of Alcohol and Drug Abuse Patient Records regulations: The Federal rules restrict any use of the information to criminally investigate or prosecute any alcohol or drug abuse patient.[facility] the event this information is protected by the Federal Confidentiality of Alcohol and Drug Abuse Patient Records regulations: The Federal rules restrict any use of the information to criminally investigate or prosecute any alcohol or drug abuse patient.[facility] System[facility] the event this information is protected by the Federal Confidentiality of Alcohol and Drug Abuse Patient Records regulations: The Federal rules restrict any use of the information to criminally investigate or prosecute any alcohol or drug abuse patient.[facility] System[facility] the event this information is protected by the Federal Confidentiality of Alcohol and Drug Abuse Patient Records regulations: The Federal rules restrict any use of the information to criminally investigate or prosecute any alcohol or drug abuse patient.[facility] System[facility] the event this information is protected by the Federal Confidentiality of Alcohol and Drug Abuse Patient Records regulations: The Federal rules restrict any use of the information to criminally investigate or prosecute any alcohol or drug abuse patient.[facility] System[facility] the event this information is protected by the Federal Confidentiality of Alcohol and Drug Abuse Patient Records regulations: The Federal rules restrict any use of the information to criminally investigate or prosecute any alcohol or drug abuse patient.[facility] System[facility] the event this information is protected by the Federal Confidentiality of Alcohol and Drug Abuse Patient Records regulations: The Federal rules restrict any use of the information to criminally investigate or prosecute any alcohol or drug abuse patient.[facility] System[facility] the event this information is protected by the Federal Confidentiality of Alcohol and Drug Abuse Patient Records regulations: The Federal rules restrict any use of the information to criminally investigate or prosecute any alcohol or drug abuse patient.[facility] System[facility] the event this information is protected by the Federal Confidentiality of Alcohol and Drug Abuse Patient Records regulations: The Federal rules restrict any use of the information to criminally investigate or prosecute any alcohol or drug abuse patient.[facility] System[facility] the event this information is protected by the Federal Confidentiality of Alcohol and Drug Abuse Patient Records regulations: The Federal rules restrict any use of the information to criminally investigate or prosecute any alcohol or drug abuse patient.[facility] System[facility] the event this information is protected by the Federal Confidentiality of Alcohol and Drug Abuse Patient Records regulations: The Federal rules restrict any use of the information to criminally investigate or prosecute any alcohol or drug abuse patient.[facility] System[facility] the event this information is protected by the Federal Confidentiality of Alcohol and Drug Abuse Patient Records regulations: The Federal rules restrict any use of the information to criminally investigate or prosecute any alcohol or drug abuse patient.[facility] System[facility] the event this information is protected by the Federal Confidentiality of Alcohol and Drug Abuse Patient Records regulations: The Federal rules restrict any use of the information to criminally investigate or prosecute any alcohol or drug abuse patient.[facility] Reason for Visit (unrecogniz ed section and [...] W/WOM-MODE COMPL SPEC&COLR D Christian Coon MD [address] [place] [address] [facility] [place] [id number] Referral ID Status Reason Start Date Expiration Date V isits Requested Visits Authorized [id number] Closed Auto-Generate d Referral 07/10/2021 07/10/2022 1 [...] MAMMOGRAPHY BI 2-VIEW BREAST INC Andrea Hazel, KENA.DRUG ABUSE PROGRAM COORDINATOR [address] [place] [address] [facility] [address] [place] [phone] Referral ID Status Reason Start Date Expiration Date V isits Requested Visits Authorized [id number] Closed Auto-Generate d Referral 06/13/2021 07/13/2022 1 1 Reason Comments PHOTOS TAKEN Reason Comments Radiology US Specialty Diagnoses / Procedures Referred By Contac t Referred To Contact [facility] Diagnoses Hx of breast reconstruction Breast implant status History of mastectomy, left Procedures US BREAST LTD LEFT US BREAST UNI REAL TIME WITH IMAGE LIMITED Edu Valdovinos MD [address] [place] [address] [facility] [address] [place] [phone] Referral ID Status Reason Start Date Expiration Date V isits Requested Visits Authorized [id number] Closed Auto-Generate d Referral 12/10/2022 01/09/2024 1 1 Care Teams (unrecognized sec tion and content) Head Start Assistant Teacher Relationship Specialty Start Date End Date Mike Reynolds MD [address] [place], [place] [id number] PCP - General 03/09/09 Michelle Shearer RN Specialty Genetic Counsellor Oncology 05/13/17 Christian Coon MD [address] [place], [place] [id number] Primary Staff Physician Cardiology 06/08/18 Head Start Assistant Teacher Relationship Specialty Start Date End Date Mike Reynolds MD [address] [place], [place] [id number] PCP - General 03/09/09 Michelle Shearer RN Specialty Genetic Counsellor Oncology 05/13/17 Christian Coon MD [address] [place], [place] [id number] Primary Staff Physician Cardiology 06/08/18 Head Start Assistant Teacher Relationship Specialty Start Date End Date Mike Reynolds MD [address] [place], [place] [id number] PCP - General 03/09/09 Michelle Shearer RN Specialty Genetic Counsellor Oncology 05/13/17 Christian Coon MD [address] [place], [place] [id number] Primary Staff Physician Cardiology 06/08/18 Head Start Assistant Teacher Relationship Specialty Start Date End Date Mike Reynolds MD [address] [place] [place], [place] [id number] PCP - General 03/09/09 Michelle Shearer RN Specialty Genetic Counsellor Oncology 05/13/17 Christian Coon MD [address] [facility] [place], [place] [id number] Primary Staff Physician Cardiology 06/08/18 Head Start Assistant Teacher Relationship Specialty Start Date End Date Mike Reynolds MD [address] [place], [place] [address] PCP - General 03/09/09 Michelle Shearer RN Specialty Genetic Counsellor Oncology 05/13/17 Christian Coon MD [address] [place], [place] [id number] Primary Staff Physician Cardiology 06/08/18 Head Start Assistant Teacher Relationship Specialty Start Date End Date Mike Reynolds MD [address] [place], [place] [phone] PCP - General 03/09/09 Michelle Shearer RN Specialty Genetic Counsellor Oncology 05/13/17 Christian Coon MD [address] [place], [place] [id number] Primary Staff Physician Cardiology 06/08/18 Head Start Assistant Teacher Relationship Specialty Start Date End Date Mike Reynolds MD [address] [place], [place] [phone] PCP - General 03/09/09 Michelle Shearer RN Specialty Genetic Counsellor Oncology 05/13/17 Christian Coon MD [address] [place] [address] Primary Staff Physician Cardiology 06/08/18 Head Start Assistant Teacher Relationship Specialty Start Date End Date Mike Reynolds MD [address] [place], [place] [phone] PCP - General 03/09/09 Michelle Shearer RN Specialty Genetic Counsellor Oncology 05/13/17 Christian Coon MD [address] [place] [address] Primary Staff Physician Cardiology 06/08/18 Head Start Assistant Teacher Relationship Specialty Start Date End Date Mike Reynolds MD [address] [place], [place] [id number] PCP - General 03/09/09 Michelle Shearer RN Specialty Genetic Counsellor Oncology 05/13/17 Christian Coon MD [address] [place], [place] [phone] Primary Staff Physician Cardiology 06/08/18 Head Start Assistant Teacher Relationship Specialty Start Date End Date Mike Reynolds MD [address] [place] [address] PCP - General 03/09/09 Michelle Shearer RN Specialty Genetic Counsellor Oncology 05/13/17 Christian Coon MD [address] [place], [place] [phone] Primary Staff Physician Cardiology 06/08/18 Head Start Assistant Teacher Relationship Specialty Start Date End Date Mike Reynolds MD [address] [place] [address] PCP - General 03/09/09 Michelle Shearer RN Specialty Genetic Counsellor Oncology 05/13/17 Christian Coon MD [address] [place] [address] Primary Staff Physician Cardiology 06/08/18 Self Primary Staff Physician Family Medicine 11/28/22 Head Start Assistant Teacher Relationship Specialty Start Date End Date Mike Reynolds MD [address] [place], [place] [address] PCP - General 03/09/09 Michelle Shearer RN Specialty Genetic Counsellor Oncology 05/13/17 Christian Coon MD [address] [place] [address] Primary Staff Physician Cardiology 06/08/18 Self Primary Staff Physician Family Medicine 11/28/22 Head Start Assistant Teacher Relationship Specialty Start Date End Date Mike Reynolds MD [address] [place] [address] PCP - General 03/09/09 Michelle Shearer RN Specialty Genetic Counsellor Oncology 05/13/17 Christian Coon MD [address] [facility] [place], [place] [phone] Primary Staff Physician Cardiology 06/08/18 INFORMATION SOURCE (unrecogn ized section and content) DATE CREATED AUTHOR [facility]'S [facility] 01/08/2023 [facility] FOR RECORDS PERTAINING TO PATIENTS WHO [...] BE BASED ON THE PRIMARY CLINICAL RECORDS. [employer] [facility]. provides no warranty or guarantee of the accuracy or completeness of information in this document.
== END | disposition home or self-care (01) ==
LOC: MFPLAB 13:41
PROVIDERS: PCP Family Medicine; Visit Provider Family Medicine
DX: I10 Essential (primary) hypertension (principal)
CPT/HCPCS: 36415; 80048; 83735; 84443; 85027

== ENCOUNTER → 2024-04-19 | Outpatient (CLI) | payer MEDICARE, SELFPAY ==
[2024-04-19 10:08] LABS: Hematocrit 38.3 % (37-47); Hemoglobin 12.5 g/dL (12.0-15.0); Mean Corp Hgb Conc 32.6 g/dL (32-36); Mean Corpuscular Hgb 28.2 pg (27.0-32.0); Mean Corpuscular Volume 86.3 fL (81-99); Mean Platelet Vol. 11.6 fl (6.2-12.0); Platelet Count 240 K/mm3 (150-450); RBC Distribution Width CV 13.6 % (11.6-14.6); RBC Distribution Width SD 42.6 fl (35.1-43.9); Red Blood Count 4.44 M/mm3 (4.2-5.4); White Blood Count 6.3 K/mm3 (4.4-11.0)
[2024-04-19 10:54] LABS: ALB/GLOB Ratio 1.1 RATIO (0.9-2.4); AST(SGOT) 21 U/L (15-37); Alanine Aminotransfer ALT/SGPT 22 U/L (13-56); Albumin, Serum 3.6 g/dL (3.2-5.0); Alkaline Phosphatase 71 U/L (45-117); Anion Gap 10 (5-15); BUN 17 mg/dL (7-18); BUN/Creat Ratio 18.8 RATIO (10-20); Chloride 102 mmol/L (98-107); Cholesterol 273 mg/dL (200); EST Glomerular Filtration Rate 64 mL/min (>60); Est Glom Filt Rate - Afr Amer 77 mL/min (>60); Globulin 3.4 g/dL (2.2-4.2); Glucose 90 mg/dL (74-106); High Density Lipoprotein 56 mg/dL; Potassium 4.3 mmol/L (3.5-5.1); Sodium Level 137 mmol/L (136-145); T4 Free Direct 1.39 ng/dL (0.76-1.46); Triglycerides 164 mg/dL; Very Low Density Lipoprotein 33 mg/dL (5-40)
== END | disposition home or self-care (01) ==
PROVIDERS: PCP Family Medicine; Referring Provider Family Medicine; Visit Provider Family Medicine
DX: E03.9 Hypothyroidism, unspecified (principal); I42.2 Other hypertrophic cardiomyopathy; I10 Essential (primary) hypertension
CPT/HCPCS: 36415; 80053; 80061; 84439; 84443; 85027

== ENCOUNTER → 2024-10-25 | Outpatient (CLI) | payer MEDICARE, SELFPAY ==
[2024-10-25 11:51] LABS: Anion Gap 10 (5-15); BUN 16 mg/dL (4-19); BUN/Creat Ratio 18.4 RATIO (10-20); Calcium,Total 9.5 mg/dL (7.6-11.0); Carbon Dioxide 26.1 mmol/L (21.0-32.0); Chloride 97 mmol/L (98-108); Cholesterol 274 mg/dL (<=200); Glucose 93 mg/dL (70-99); Low Density Lipoprotein Calc. 189 mg/dL; Potassium 4.5 mmol/L (3.3-5.1); Triglycerides 135 mg/dL; Very Low Density Lipoprotein 27 mg/dL (5-40); cholesterol:hdl ratio screen 4.70
== END | disposition home or self-care (01) ==
LOC: MFPLAB 08:08
PROVIDERS: PCP Family Medicine; Referring Provider Family Medicine; Visit Provider Family Medicine
DX: E78.00 Pure hypercholesterolemia, unspecified (principal)
CPT/HCPCS: 36415; 80048; 80061; 84439; 84443

== ENCOUNTER 2025-01-20 08:30 | Outpatient (RCR) | payer MEDICARE, SELFPAY ==
--- NOTE | 2024-12-27 08:12 | HP.PTEVAL_ITS ---
Patient's Visit Information Visit Information Visit Information: LILY QUINONEZ is a 79 year old F referred to Physical Therapy by Dr. Armando Cohen DO with a diagnosis of R LE strain. Date of Evaluation: 12/26/24 Physical Therapist: Mainor Chow, PT, ATC Visit Plan Frequency: 2x /Week Duration: 2 Weeks Plan: R LE stretching with focus on peroneal muscle group, stick rollout, strengthening, hawks rock singer, and HEP Subjective Subjective: Pt reports her R LE has been sore for approximately one month. Pt reports she was playing tennis at the time when she and her teammate went for the ball at the same time. pt notes she stumbled a little and that is when she experienced pain in her R LE. Pt reports she has been icing and using a heating pad in an attempt to decrease her pain. Pt reports she feels relief from the ice and HP, but playing tennis continues to increase her pain. Pt denies any tingling or numbness at this time. Pt reports occasional sleep difficulty secondary to pain. Pt reports her pain is located mostly on the posterior aspect of R knee along the joint line. Pt reports lateral mobility is what causes her the most pain. Pt reports she has stairs to her basement, which increases her pain on certain days. No diagnostic tests at this time. No giving out or locking up in R knee. 0/10 pain at rest, 7/10 pain at worst Pain R LE: Pain Intensity (Out of 10): 0 Pain Intensity Range: 7 Objective Objective: Neuro: B LE sensation is WNL to light touch. Palpation: Pt notes pain with palpation on posterior knee on lateral joint line. Pt is also very tender throughout peroneal muscle groups. No deformity noted. ROM: L ankle DF= 10, PF= 60; R ankle DF= 10, PF= 50 degrees MMT: L ankle DF= 42, PF= 59, Ever= 46 #F; R ankle DF= 29, PF= 59, Ever= 30 #F Balance/Special Test Scores Lower Extremity Functional Score: 61 Goals Goal 1:: Decrease R LE pain x 50% to aid with sleep Goal Time Frame: 2-4 Weeks Goal 2:: I with HEP Goal Time Frame: 2-4 Weeks Goal 3:: Increase R LE eversion ankle strength x 5 #F to aid with IADL's Goal Time Frame: 2-4 Weeks Rehabilitation Potential Physical Therapy Diagnosis: Pt has R LE pain, weakness, and intolerance for playing tennis secondary to a R LE peroneal muscle strain Rehabilitation Potential: Good Anticipated Interventions Patient/Client Instruction: Educate patient on: Condition and Plan of Care For the Purpose of:: To improve self management Therapeutic Exercise to Include: Strength training, Flexibilty training and Active ROM For the Purpose of:: To decrease pain, To increase ROM and To improve muscle per formance and motor function Manual Therapy Techniques to Include: Soft tissue mobilization For the Purpose of:: To decrease pain Text: Thank you for the opportunity to evaluate your patient. For Medicare and Medicare HMO plans, please review the plan of care and approve it. It will need to be FAXED BACK to us at [phone] for Medicare purposes. For Medicare only, by signing this I certify the plan of care. Please let me know if there are questions or concerns regarding this plan of care. Physician Signature: Date:
--- NOTE | 2025-04-17 11:30 | HP.PT.NRP ---
Patient Information Patient Information: LILY QUINONEZ was seen in my office for initial evaluation on 12/26/24. The following Plan of Care was established for this patient: POC Established Initial Frequency: 2x /Week Initial Duration: 2 Weeks Anticipated Interventions Patient/Client Instruction: Educate patient on: Condition and Plan of Care For the Purpose of:: To improve self management Therapeutic Exercise to Include: Strength training, Flexibilty training and Active ROM For the Purpose of:: To decrease pain, To increase ROM and To improve muscle performance and motor function Manual Therapy Techniques to Include: Soft tissue mobilization For the Purpose of:: To decrease pain Last Seen Last Seen: This patient was last seen in our office . Pertinent comments regarding their Physical therapy will appear below: Pt has not returned in greater than 30 days and is discontinued at this time. At this point I will be discontinuing this patient from physical therapy. I would be happy to see this patient again in the future if found appropriate by the physician. Thank you! Mainor Chow, PT, ATC Balance/Gait/Functional tests Balance/Special Test Scores Lower Extremity Functional Score: 61
== END 2025-01-20 19:00 | disposition home or self-care (01) ==
LOC: PT 08:30
PROVIDERS: PCP Family Medicine; Referring Provider Family Medicine; Visit Provider Family Medicine
DX: S86.911D Strain of unspecified muscle(s) and tendon(s) at lower leg level, right leg, subsequent encounter (principal)
CPT/HCPCS: 97110; 97140; 97161